=== PATIENT | male | born 1990 | race Caucasian/White ===

== ENCOUNTER → 2021-05-05 | Outpatient (CLI) | payer MEDICAID, SELFPAY | END | disposition home or self-care (01) | LOC: LABSPEC 15:15 | PROVIDERS: Visit Provider Physician Assistant | DX: U07.1 COVID-19 (principal) | CPT/HCPCS: 87635; U0005; U0003 ==

== ENCOUNTER 2021-06-28 05:22 | Observation (INO) | payer MEDICAID, SELFPAY ==
[2021-06-28] VITALS (14 sets, daily range): BP systolic 134–203; BP diastolic 65–144; PULSE 80–105; RESP 16–24; TEMP 36.3–36.8; O2SAT 95–98; BMI 47.7; BMI 46.6
--- NOTE | 2021-06-28 05:37 | RAD_ITS ---
STUDY: X-RAY CHEST REASON FOR EXAM: Male, 31 years old. Chest pain TECHNIQUE: Single AP portable view of the chest. COMPARISON: None. FINDINGS: Interstitial markings are minimally prominent. There is no demonstrated pleural abnormality. There is borderline cardiac enlargement. Normal mediastinum and danilo. Normal visualized pulmonary arteries. There is tortuosity of the aortic arch and descending thoracic aorta. Normal visualized thoracic spine. Normal visualized ribs, clavicles, and shoulders. There is no demonstrated abnormality of the visualized soft tissue structures of the upper abdomen. RAD/Chest 1 View (Portable) IMPRESSION: Borderline cardiac enlargement. Nonspecific minimal interstitial prominence. No visualized focal consolidation. Electronically Signed: Eleonora Ge MD at 6:30 EST Tel , Service support ,
--- NOTE | 2021-06-28 05:37 | EKG12_ITS ---
Test Reason : DYSRHYTHMIA Blood Pressure : / mmHG Vent. Rate : 092 BPM Atrial Rate : 092 BPM P-R Int : 192 ms QRS Dur : 100 ms QT Int : 372 ms P-R-T Axes : 037 005 058 degrees QTc Int : 460 ms Normal sinus rhythm Normal ECG Confirmed by MAIRA IBRAHIM, DEBBY ([id number]), newspaper editor EDY REMY ([id number]) on 06/29/2021 8:57:37 AM Referred By: PL Confirmed By:DEBBY RAO MD
--- NOTE | 2021-06-28 05:38 | CT_ITS ---
STUDY: CT BRAIN WITHOUT CONTRAST REASON FOR EXAM: Male, 31 years old. headache RADIATION DOSAGE (If Supplied By Facility): CTDIvol = ( 44.99 ) mGy, DLP = ( 863.60 ) mGycm TECHNIQUE: Transaxial CT imaging of the brain was performed without administration of intravenous contrast material. Individualized dose optimization techniques were used for this CT. COMPARISON: No relevant priors. FINDINGS: Normal soft tissue structures. Normal calvarium. Normal size ventricles and extra-axial spaces for the patient''s age. Normal white matter tracts of the cerebral hemispheres. Normal basal ganglia and thalami. Normal brainstem. Normal cerebellum. There is no intracranial hemorrhage. There are no findings of an acute ischemic infarction. Near complete opacification of the left maxillary sinus. CT/Brain/Head without Contrast IMPRESSION: No acute intracranial pathology. Near complete opacification of the left maxillary sinus. Electronically Signed: Aly Huffman DO at 6:36 EST Tel , Service support ,
--- NOTE | 2021-06-28 05:39 | EX.ED.DYSGE1 ---
HPI History of Present Illness Chief Complaint: Headache Informant: patient Narrative Narrative: Patient comes in with complaints primarily of an episode of chest pain. He states that he had COVID diagnosed on the sixth and he started with symptoms on the . He went back to work just 2 days ago on Saturday. He was having intermittent chest pain on Saturday. It was discomfort in the upper chest. It did not radiate. It was associated with some nausea. However, patient states he commonly gets nauseated if he has pain. He is not sure if it was associated with dyspnea or not. The episode yesterday morning was associated with lightheadedness. He does not think he was diaphoretic. It would last for 3 to 5 minutes. It was not specifically exertional. Yesterday morning about 24 hours ago he had a bad episode of chest pain this did not calls him to be syncopal. However he states it hurts so much he kind of sat down on the ground. He started to cry and feel shaky. He was very anxious and nervous. It is not going on right now. He is not short of breath. He is not having fevers or chills. He does state that he has had a bad headache since the episode yesterday but did not hit his head. However, he also states he has been having headaches every single day for many years. He has never had them evaluated. No neurologic symptoms. He also states that he gets red blood in his stool every few weeks or a month and this has been going on for likely 15 years. No abdominal pain. No black stools. Is not different than normal. [facility] Medical History COVID-19 Encounter for screening for COVID-19 Morbid obesity Psoriasis Uncontrolled hypertension Allergy/AdvReac Type Severity Reaction Status Date / Time No Known Allergies Allergy Verified 06/28/21 05:27 Social History Smoking Status: Current every day smoker tobacco type: cigarettes ROS ROS ED Constitutional Constitutional ED: Denies chills or fever(s) Eyes Eyes: Denies blurry vision ENT ENT ED: Denies rhinorrhea or sore throat Cardiovascular Cardiovascular: Reports chest pain and palpitations Respiratory/Chest Respiratory/Chest: Reports cough; Denies dyspnea Gastrointestinal Gastrointestinal: Reports other Details: See history of present illness. ; Denies abdominal pain, diarrhea, melena, nausea or vomiting Genitourinary Genitourinary ED: Denies hematuria or urinary frequency Musculoskeletal Musculoskeletal: Denies arthralgias or myalgias Integumentary Denies rash Neurologic Neurologic: Reports headache(s); Denies paresthesias or weakness Psychiatric Psychiatric: Reports anxiety; Denies depression Endocrine Endocrinology: Denies polydipsia or polyuria Allergic/Immunologic Allergic/Immunologic ED: Denies mouth swelling or urticaria EXAM Physical Exam Const Vital Signs: 06/28/21 05:22 06/28/21 05:28 06/28/21 05:31 Temperature 98.2 F Temperature Source Temporal Pulse Rate 105 H 103 H Respiratory Rate 20 H Respiratory Effort Normal Blood Pressure 203/127 H 202/144 H Blood Pressure Mean 152 163 Pulse Ox 98 Oxygen Delivery Method Room Air 06/28/21 05:37 06/28/21 06:18 06/28/21 06:20 Temperature Temperature Source Pulse Rate 87 Respiratory Rate 20 H Respiratory Effort Blood Pressure 177/109 H 162/101 H Blood Pressure Mean 131 121 Pulse Ox 96 97 Oxygen Delivery Method Room Air Room Air 06/28/21 06:47 Temperature Temperature Source Pulse Rate Respiratory Rate 24 H Respiratory Effort Blood Pressure 138/86 H Blood Pressure Mean 103 Pulse Ox 95 Oxygen Delivery Method Room Air Positive well nourished, well developed and obese General Appearance ED: well developed and NAD; Negative for cyanotic or diaphoretic Nutritional Appearance: obese HEENT Denies moist mucous membranes Eyes General Eye ED: Negative for pale conjunctiva or scleral icterus Neck no JVD Chest Wall inspection of chest normal Resp normal respiratory effort and clear to auscultation bilaterally Effort and Inspection: Negative for pain with movement Auscultation: Negative for rales, rhonchi or wheezes Cardio regular rhythm and no murmurs Rate: tachycardic GI normal to inspection, nondistended, normoactive bowel sounds and non-tender Palpation: soft Back/Spine no CVA tenderness Extremity normal to inspection General Extremety ED: Negative for tenderness Neuro oriented x3 Sensorium / Orientation: alert Psych Psych Narrative: Patient is a bit anxious. He admits that he is very nervous about being here. He intermittently cries during exam. Mood & Affect: anxious Skin no rashes or lesions noted MDM MDM MDM Narrative Medical decision making narrative: Patient CBC showed minimal elevation of white count which is nonspecific. D-dimer is negative. Electrolytes looked normal. His troponin was elevated at 107. EKG did not show any acute process and I do not have an old to compare to. His chest x-ray shows some borderline cardiac enlargement. I was concerned with couple episodes of chest pain in a young male with elevated troponin. It is certainly true that his troponin elevation may be due to significant hypertension as he showed up very hypertensive. He has gotten 1 dose of labetalol and is actually down to about 160/100 now. I discussed the case with the hospitalist. They requested a repeat troponin at 2 hours. This is pending. I did discuss the case with speech pathologist assistant, Dr. Velazquez. He agreed that it is very possible that the troponin elevation could be due to his high blood pressure. However, considering his young age and unknown history with chest pain and elevated troponin he should come in the hospital. Serial troponins and serial EKGs should be done along with watching his blood pressure to make sure we keep it under control. He thought he would likely need an echo to look at his wall motion and thickness. He may even need a stress test or further evaluation. I will call and discuss with the hospitalist. Lab Data Attestation: I reviewed the patient's lab results. Labs: Laboratory Results - last 24 hr 06/28/21 06/28/21 06/28/21 05:30 05:30 05:30 WBC 12.4 H RBC 5.52 Hgb 15.9 Hct 45.7 MCV 82.8 MCH 28.8 MCHC 34.8 RDW Std Deviation 40.3 RDW Coeff of Angel 13.4 Plt Count 360 MPV 11.5 Immature Gran % (Auto) 0.400 Neut % (Auto) 61.1 Lymph % (Auto) 29.7 [place] % (Auto) 6.7 Eos % (Auto) 1.5 Baso % (Auto) 0.6 Absolute Neuts (auto) 7.6 Absolute Lymphs (auto) 3.67 Nucleated RBC % 0 D-Dimer Quant (PE/DVT) <= 0.27 Sodium 138 Potassium 3.5 Chloride 103 Carbon Dioxide 29.0 Anion Gap 6 BUN 12 Creatinine 0.91 Estim Creat Clear Calc 124.12 Est GFR (MDRD) Af Amer 125 Est GFR (MDRD) Non-Af 103 BUN/Creatinine Ratio 13.2 Glucose 103 Calcium 8.9 Troponin I High Sens 107 H Radiography Diagnostic Testing: Clinical Impression(s) from Imaging Studies Chest X-Ray 06/28/21 05:37 IMPRESSION: Borderline cardiac enlargement. Nonspecific minimal interstitial prominence. No visualized focal consolidation. Electronically Signed: Eleonora Ge MD at 6:30 EST Tel , Service support , Brain CT 06/28/21 05:38 IMPRESSION: No acute intracranial pathology. Near complete opacification of the left maxillary sinus. Electronically Signed: Aly Huffman DO at 6:36 EST Tel , Service support , EKG Initial EKG: Comments: Done for chest pain read by me shows normal sinus rhythm. No ventricular ectopy. No acute ST elevation or depression. MA interval, QRS duration and QTc normal. There is no old for comparison. Discharge Plan Dx/Rx/DC Orders Clinical Impression: Hypertensive emergency, Chest pain, Elevated troponin Disposition Disposition: Acute Care [facility]
[2021-06-28 05:44] LABS: Absolute Lymphocyte Count 3.67 X10^3/uL (0.83-4.51); Absolute Neutrophil Count 7.6 X10^3/uL (2.0-7.7); Basophil# 0.07 X10^3/uL; Basophil% 0.6 % (0-1); Eosinophil# 0.18 X10^3/uL; Eosinophils% 1.5 % (0-5); Hematocrit 45.7 % (40-54); Hemoglobin 15.9 g/dL (13.0-16.5); Lymphocyte # 3.67 X10^3/ul (0.83-4.51); Lymphocyte % 29.7 % (19-41); Mean Corp Hgb Conc 34.8 g/dL (32-36); Mean Corpuscular Hgb 28.8 pg (27.0-32.0); Mean Corpuscular Volume 82.8 fL (80-94); Mean Platelet Vol. 11.5 fl (6.2-12.0); Monocyte# 0.83 X10^3/uL; Monocyte% 6.7 % (0-10); NRBC Flagged by Analyzer 0 % (0-5); Neutrophil # 7.56 X10^3/uL (2.7-7.7); Neutrophil % 61.1 % (47-70); Platelet Count 360 K/mm3 (150-450); RBC Distribution Width CV 13.4 % (11.6-14.6); RBC Distribution Width SD 40.3 fl (35.1-43.9); Red Blood Count 5.52 M/mm3 (4.6-6.2); White Blood Count 12.4 K/mm3 (4.4-11.0)
[2021-06-28 05:58] LABS: D-Dimer Quantitative (DVT/PE) <= 0.27 FEU/ug/m (0.27-0.49)
[2021-06-28 06:02] LABS: Anion Gap 6 (5-15); BUN 12 mg/dL (7-18); BUN/Creat Ratio 13.2 RATIO (10-20); Calcium,Total 8.9 mg/dL (8.5-10.1); Chloride 103 mmol/L (98-107); Creatinine, Serum 0.91 mg/dL (0.70-1.30); EST Glomerular Filtration Rate 103 mL/min (>60); Est Glom Filt Rate - Afr Amer 125 mL/min (>60); Estimated Creatinine Clearance 124.12 ml/min; Glucose 103 mg/dL (74-106); Potassium 3.5 mmol/L (3.5-5.1); Sodium Level 138 mmol/L (136-145); Troponin-I HS 107 pg/mL (3.0-78.0)
[2021-06-28] MEDS: Labetalol (Prefilled) 20 MG/4 ML IV (06:16)
--- NOTE | 2021-06-28 07:25 | NURSING ---
DR UNA ARIAS [facility]
--- NOTE | 2021-06-28 07:36 | NURSING ---
PCU UNA CP, ELEVATED TROP, HYPERTENSIVE EMERGENCY
--- NOTE | 2021-06-28 07:36 | NURSING ---
DR HEART IN ER
--- NOTE | 2021-06-28 07:46 | NURSING ---
NO OLD EKGS
--- NOTE | 2021-06-28 08:07 | PCM.HP.STD ---
HPI - General General Date of Admission: 06/28/21 Date of Service: 06/28/21 Chief Complaint: Chest pain HPI Narrative YOSEF GRAY, is a 31 M who presents presents with midsternal chest pain. Took him down to the floor. It was midsternal. Patient was diaphoretic and short of breath and presented to the emergency room. In the emergency room, his blood pressure was noted to be 203/127. He received IV labetalol and his blood pressure steadily improved and currently down to 134/65. Patient was seen in the urgent care on the sixth and his blood pressure was 206/120 at that time. Patient does not follow-up with physicians on a routine basis. Patient had COVID-19 at that time he was unvaccinated. He did not require hospitalization and has completed his quarantine. Patient was back to work this past Saturday. Patient was noted to have a troponin of over 100. Dr. Martinez, of cardiology, was contacted and advised further admission and evaluation. Patient also notes that he has had hematochezia. It is intermittent and can be frequent to be spaced out over a month but he did have hematochezia last night. Patient also did have some epistaxis x1 but that has resolved. [facility] Medical History COVID-19 Encounter for screening for COVID-19 Morbid obesity Psoriasis Uncontrolled hypertension Allergy/AdvReac Type Severity Reaction Status Date / Time No Known Allergies Allergy Verified 06/28/21 05:27 Family History (Updated 06/28/21 @ 08:[address] Herman Coles DO) Mother CVA (cerebral vascular accident) Obstructive sleep apnea Diabetes no surgical history Social History (Updated 06/28/21 @ 08:[address] Herman Coles DO) Smoking Status: Light Smoker (<10/day) alcohol intake: never substance use type: marijuana ROS ROS Narrative Patient does have psoriatic plaques involving his scalp, back and arms. Denies easy bruising. Denies hematuria. All review of systems were negative except as mentioned above in the history of present illness and the other review of systems. Vital Signs Vital Signs Vital Signs: 06/28/21 05:22 06/28/21 05:28 06/28/21 05:31 Temperature 36.8 C Temperature Source Temporal Pulse Rate 105 H 103 H Respiratory Rate 20 H Respiratory Effort Normal Blood Pressure 203/127 H 202/144 H Blood Pressure Mean 152 163 Pulse Ox 98 Oxygen Delivery Method Room Air 06/28/21 05:37 06/28/21 06:18 06/28/21 06:20 Temperature Temperature Source Pulse Rate 87 Respiratory Rate 20 H Respiratory Effort Blood Pressure 177/109 H 162/101 H Blood Pressure Mean 131 121 Pulse Ox 96 97 Oxygen Delivery Method Room Air Room Air 06/28/21 06:47 06/28/21 07:35 Temperature 36.8 C Temperature Source Temporal Pulse Rate 83 Respiratory Rate 24 H 16 Respiratory Effort Blood Pressure 138/86 H 134/65 H Blood Pressure Mean 103 88 Pulse Ox 95 96 Oxygen Delivery Method Room Air Room Air Weight Weight: 155.3 kg Body Mass Index (BMI) 47.7 Physical Exam Const alert General Appearance: cooperative HEENT normocephalic Eyes Eyes Narrative: Glasses. No icterus Neck no lymphadenopathy Resp normal respiratory effort, no retractions, no use of accessory muscles and clear to auscultation bilaterally Cardio regular rate, regular rhythm, S1 normal heart sound and S2 normal heart sound GI normal to inspection, nondistended, normoactive bowel sounds, soft to palpation and non-tender Extremity normal to inspection and full ROM Skin Skin Narrative: Psoriatic plaques involving around his elbows, umbilicus, scattered patches on his back. Does have chronic changes to his fingernails as well. Neuro Sensorium / Orientation: awake, alert and oriented to person Psych affect normal Results Lab / Micro Data Attestation: I reviewed the patient's lab results. Result Diagrams: 06/28/21 05:30 06/28/21 05:30 Labs: Laboratory Results - last 24 hr 06/28/21 05:30: WBC 12.4 H, RBC 5.52, Hgb 15.9, Hct 45.7, MCV 82.8, MCH 28.8, MCHC 34.8, RDW Std Deviation 40.3, RDW Coeff of Angel 13.4, Plt Count 360, MPV 11.5, Immature Gran % (Auto) 0.400, Neut % (Auto) 61.1, Lymph % (Auto) 29.7, [place] % (Auto) 6.7, Eos % (Auto) 1.5, Baso % (Auto) 0.6, Absolute Neuts (auto) 7.6, Absolute Lymphs (auto) 3.67, Nucleated RBC % 0 06/28/21 05:30: D-Dimer Quant (PE/DVT) <= 0.27 06/28/21 05:30: Sodium 138, Potassium 3.5, Chloride 103, Carbon Dioxide 29.0, Anion Gap 6, BUN 12, Creatinine 0.91, Estim Creat Clear Calc 124.12, Est GFR (MDRD) Af Amer 125, Est GFR (MDRD) Non-Af 103, BUN/Creatinine Ratio 13.2, Glucose 103, Calcium 8.9, Troponin I High Sens 107 H Micro: Microbiology 06/28/21 07:05 Nasal Secretion SARS-CoV-2 Antigen (Rapid) - Final EKG Initial EKG: Attestation: I personally reviewed and interpreted this EKG as follows: Prior EKG tracings: available for review EKG Rhythm Intrepretation: Sinus Rhythm Radiology Impression Chest X-Ray 06/28/21 05:37 IMPRESSION: Borderline cardiac enlargement. Nonspecific minimal interstitial prominence. No visualized focal consolidation. Electronically Signed: Eleonora Ge MD at 6:30 EST Tel , Service support , Brain CT 06/28/21 05:38 IMPRESSION: No acute intracranial pathology. Near complete opacification of the left maxillary sinus. Electronically Signed: Aly Huffman DO at 6:36 EST Tel , Service support , Assessment & Plan Assessment/Plan (1) Hypertensive emergency: (2) Chest pain: QUALIFIERS: Chest pain type: unspecified Qualified Code(s): R07.9 - Chest pain, unspecified (3) Elevated troponin: (4) Bloody stools: PLAN: 1. Hypertensive emergency Associated with chest pain and elevated troponins Blood pressure much improved after labetalol Start lisinopril Suspect patient has had chronically elevated blood pressure for a long period of time. Patient had an urgent care visits on the sixth of this month and his blood pressure was in the 200s at that time. 2. Elevated troponins May be due to demand from his hypertension. Check an echocardiogram Consult cardiology 3. Hematochezia And ongoing issue according to patient since he was 15 years old He has never had this evaluated before Possibilities could include Crohn's disease versus ulcerative colitis versus diverticulosis or hemorrhoids Does not seem to be affected by what he eats Start the patient on PPI Clear liquid diet Gastroenterology consult 4. Morbid obesity Complicates care and overall recovery. Advised patient to be evaluated for sleep apnea as outpatient 5. Psoriasis Patient has 3 lesions on his scalp as well as reports of his body involving fingernails as well Follow-up with dermatology as outpatient 6. VTE prophylaxis SCDs. Holding off on chemical prophylaxis given the hematochezia Charges/Coding Visit Charges Inpatient E&M: 34322 Init Hosp L3
--- NOTE | 2021-06-28 08:09 | PCS.PANDOC ---
PANDEMIC DOCUMENTATION INITIATED: Date: 01/23/2021 Time: 190
--- NOTE | 2021-06-28 08:23 | EKG12_ITS ---
Test Reason : CP ADMIT Blood Pressure : / mmHG Vent. Rate : 081 BPM Atrial Rate : 081 BPM P-R Int : 194 ms QRS Dur : 108 ms QT Int : 402 ms P-R-T Axes : 034 017 066 degrees QTc Int : 466 ms Normal sinus rhythm Poor R wave progression Confirmed by FRANK IBRAHIM, FLOYD ([id number]), market editor CATALINO IRIZARRY ([id number]) on 06/29/2021 9:34:47 AM Referred By: UNA Confirmed By:FLOYD MARIE MD
--- NOTE | 2021-06-28 08:23 | ECHOCS_ITS ---
Reason For Study: Elevated Troponins Procedure This was a 2D Doppler, Color Flow transthoracic echocardiogram. Technically difficult due to patients body habitus. Contrast injection performed. The study was technically difficult. Contrast injection was performed. Exam performed portable in patient room. Left Ventricle Normal LV size. Left ventricular systolic function is normal. The estimated ejection fraction is 65 %. Diastolic function is indeterminate. No regional wall motion abnormalities noted. Right Ventricle Normal RV size. Normal systolic function. Atria Normal left atrium. Normal right atrium. No doppler evidence for ASD. Mitral Valve There is no mitral annular calcification. Normal mitral valve. Tricuspid Valve Normal tricuspid valve. Aortic Valve Trisinus/trileaflet aortic valve. Normal aortic valve. Pulmonic Valve The pulmonic valve is not well visualized. Great Vessels Dilated arch. Pericardium/Pleural No pericardial effusion. Medication Diluted definity 4ml given slow IV push to enhance endocardial definition. MMode/2D Measurements & Calculations LVIDd: 4.7 cm IVSd: 1.8 cm LA dimension: 4.1 cm LVIDs: 3.6 cm LVPWd: 1.8 cm FS: 23.6 % LAV(MOD-bp): 29.1 ml LA A4 area: 12.3 cm2 LAV(MOD-bp) Indexed: 11.1 ml/m2 LAV(MOD-sp2): 30.2 ml LAV(MOD-sp4): 26.5 ml Time Measurements MV dec time: 0.21 sec Doppler Measurements & Calculations MV E max filiberto: 93.2 cm/sec Lat Peak E' Filiberto: 5.6 cm/sec Med Peak E' Filiberto: 7.6 cm/sec MV A max filiberto: 79.7 cm/sec E/E' lat: 16.8 E/E' med: 12.2 MV E/A: 1.2 MV V2 max: 89.5 cm/sec MV P1/2t max filiberto: 89.5 cm/sec Ao V2 max: 126.8 cm/sec MV max P.2 mmHg MV P1/2t: 86.5 msec Ao max P.4 mmHg MV V2 mean: 58.3 cm/sec MV dec slope: 303.2 cm/sec2 MV mean P.5 mmHg MV V2 VTI: 22.3 cm MVA(P1/2t): 2.5 cm2 LV V1 max: 105.1 cm/sec PA V2 max: 114.6 cm/sec LV V1 max P.4 mmHg ECHO/Echo Complete W/ Contrast Interpretation Summary The study was technically difficult. Contrast injection was performed. Left ventricular systolic function is normal. The estimated ejection fraction is 65 %. Dilated arch. Diastolic function is indeterminate. Ordering Physician: Herman Coles Referring Physician: no PCP noted Performed By: Warren Marrufo RCS
[2021-06-28 08:27] LABS: Troponin-I HS 97 pg/mL (3.0-78.0)
--- NOTE | 2021-06-28 08:39 | RDU_ITS ---
Reason For Study: HTN Right Renal Artery Left Renal Artery Right renal artery ostium Left renal artery ostium 167.0/55.2 137.8/42.0 RSV/EDV. PSV/EDV. Right renal artery proximal Left renal artery proximal PSV/EDV 168.9/60.1 PSV/EDV. 140.5/65.3 . Right renal artery mid 155.9/57.5 Left renal artery mid 132.7/47.2 PSV/EDV. PSV/EDV . Right renal artery distal Left renal artery distal 153.4/57.5 132.6/52.3 PSV/EDV. PSV/EDV. Right RAR 2.2. Left RAR 2.2. Right Renal Parenchyma Left Renal Parenchyma Upper Pole Medula 28.5/12.1 Left upper pole medulla 45.8/17.5 PSV/EDV. PSV/EDV . Right upper pole medulla EDR .42 . Left upper pole medulla EDR .38 . Right upper pole medulla R.I. .58 . Left upper pole medulla R.I. .62 . Upper Omer Cortx 21.2/10.2 PSV/EDV. UP Cortex 36.7/16.6 PSV/EDV. Right upper pole cortex EDR .48 . Left upper pole cortex EDR .45 . Right upper pole cortex R.I. .52 . Left upper pole cortex R.I. .55 . Right lower Pole medulla 38.5/17.5 Left lower Pole medulla 37.6/14.8 PSV/EDV . PSV/EDV . Right lower pole medulla EDR .45 . Left lower pole medulla EDR .39 . Right lower pole medulla R.I. .55 . Left lower pole medulla R.I. .61 . Lower Pole Cortex 30.3/13.0 Lower Pole Cortx 25.8/10.2 PSV/EDV. PSV/EDV. Left lower pole cortex EDR .4 . Right lower pole cortex EDR .43 . Left lower pole cortex R.I. .6 . Right lower pole cortex R.I. .57 . Left Renal Hilar Right Renal Hilar LT Hilar avg 47.7/20.3 PSV/EDV . Right Hilar avg 70.2/28.8 PSV/EDV. Left hilar acceleration time 40.0 Right hilar acceleration time 60.0 m/sec. m/sec. Left Renal Dimensions Right Renal Dimensions Left kidney size 13.44 cm . Right kidney size 13.22 cm . Left cortical dimension 2.16 cm . Right cortical dimension 2.11 cm . Aorta Proximal abdominal aorta 1.62 x 1.53 cm . Proximal abdominal aorta peak systolic velocity is 75.3 cm/sec . Distal abdominal aorta 1.45 x 1.583 cm . Distal abdominal aorta peak systolic velocity is 73.4 cm/sec . Normal renal veins bilat. VL/Renal Artery Duplex Ultrasound Interpretation Summary Maximal dimension of the proximal abdominal aorta 1.62 x 1.53 cm in diameter, n ormal Normal flow velocity abdominal aorta Less than 60% stenosis right renal artery Maintained right renal length of 13.22 cm Less than 60% stenosis left renal artery Maintained left renal length of 13.44 cm Ordering Physician: Chapito Martinez Performed By: Jaime Bridges RVT
[2021-06-28] MEDS: Lisinopril 20 MG Tablet PO (09:31)
[2021-06-28] MEDS: Acetaminophen 325 MG Tablet 650 MG PO (09:31)
[2021-06-28] MEDS: 0.9% Saline Lock 10 ML Syringe IV (10:53)
--- NOTE | 2021-06-28 11:29 | CASEMGMT ---
ROVERTO GRAHAM assessment: Face to Face with patient for initial transition planning/care coordination assessment. ROVERTO GRAHAM introduced self and role at [facility]. pt voices understanding and consents to assessment. Pt is sitting up in bed in no distress on room air. Pt is A/Ox4 and answers all questions appropriately. Care providers, pharmacy, and demographics verified. Presentation: Pt states had CP yesterday am with syncopal episode Admitting dx: HTN urgency, Chest pain, elev trop PCP: [facility] first appt 07/11/21 Specialists: None Preferred [facility]acy: [facility] Insurance: [facility] community plan Prescription Benefit: [facility] Community plan Living Will/HPOA: Pt states does not have LW/HPOA and declines AD info. LNOK: Tiffany Bullock, friend; Carlos Cobian, aunt Living Arrangements: Pt lives with and kids in 2 story home and states no concerns at home. Pt does not want to list as contact at this time as he states she does not have working phone. Pt is independent with ADL's. Transportation: Pt drives self and states no transportation concerns. DME/HHC: Pt states no current DME or need for any DME. Pt states no hx of HHC or SNF. Pt states no concerns with going home at time of discharge. Pt states is mostly unemployed at this time as he was working at [employer] but he thinks it's too much for him to do and let them know. Pt smokes pack cigarettes daily but states is attempting to quit at this time. Pt states no further concerns/needs. CM to follow any further discharge planning/needs. Advised pt to ask for CM if any further questions/concerns/needs arise, voices understanding. Pt Goal: Home Plan: [place] ROVERTO GRAHAM
[2021-06-28 11:58] LABS: Troponin-I HS 93 pg/mL (3.0-78.0)
--- NOTE | 2021-06-28 12:37 | CT_ITS ---
STUDY: CTA CHEST REASON FOR EXAM: Male, 31 years old. chest pain; HTN; dilated aortic arch RADIATION DOSAGE (If Supplied By Facility): CTDIvol = ( 13.74 ) mGy, DLP = ( 438.56 ) mGycm TECHNIQUE: The examination was performed with the intravenous administration of IV 100mL Isovue-370. Post-processing of the angiographic images was performed, with multiplanar reformation and 3D reconstruction. Individualized dose optimization techniques were used for this CT. COMPARISON: None. FINDINGS: Mild bilateral gynecomastia. Normal enhancement of the main pulmonary artery and right and left pulmonary arteries. Normal enhancement of the bilateral peripheral pulmonary arteries. There is no demonstrated pulmonary embolism. Normal thoracic aorta and visualized great vessels. There is no demonstrated aortic dissection. Normal heart and pericardium. Normal mediastinum. Normal hilar regions. Normal visualized trachea and bronchi. The lungs are under expanded. No airspace consolidation. Calcified granuloma in the left upper lobe. Normal pleura. Normal chest wall structures. Normal osseous structures. There is diffuse fatty infiltration of the liver. CT/CTA Chest W/WO Contrast IMPRESSION: 1. No central or segmental pulmonary embolism. No thoracic aortic aneurysm or dissection. 2. Symmetric bilateral gynecomastia. Electronically Signed: Doroteo Chavez MD ([place]) at 14:21 EST , Service support ,
--- NOTE | 2021-06-28 13:03 | CON.PCM.CA_ITS ---
Assessment & Plan Assessment/Plan (1) Abnormal cardiac enzyme level: PLAN: The patient does have abnormal cardiac enzyme levels. His enzyme levels may be secondary to his urgent/emergent hypertensive event. He has undergone evaluation with ECG with no acute changes. He is undergone evaluation with transthoracic echocardiogram which appears to suggest that his left ventricular wall motion and systolic function are preserved. Depending upon his clinical status he may need further noninvasive and/or invasive evaluation of his cardiovascular status as deemed appropriate. In the interim he should continue medical therapy with attempts at bringing his blood pressure under better control. (2) Hypertensive emergency: PLAN: The patient was unaware of any hypertensive related issues until recently. He may have a history of hypertension which has not been controlled. His hypertension could lead to his symptoms as well as his cardiac enzyme change. At the moment appears he is being started on medical therapy with an ADALGISA inhibitor. His blood pressure will need to be followed in response to this medication. If his blood pressure does not improve his dose may need to be adjusted and/or other medications used to bring his blood pressure under better control. In the interim he has been asked to have a renal artery duplex study performed to evaluate for any obvious evidence of renal artery stenosis that would be contributing to his findings. (3) Chest pain: QUALIFIERS: Chest pain type: unspecified Qualified Code(s): R07.9 - Chest pain, unspecified PLAN: The patient's chest discomfort appears to be somewhat atypical. He will continue his cardiovascular evaluation as noted above. (4) Bloody stools: PLAN: The patient has a history of hematochezia which has been unexplained. It appears that gastroenterology has been consulted to evaluate the patient. (5) Morbid obesity: PLAN: Unfortunately the patient is morbidly obese. This does have to be taken into consideration with respect to his ongoing evaluation and care. (6) COVID-19: PLAN: The patient was diagnosed with COVID-19 earlier this month. He had a repeat COVID-19 test this day which was negative. He is not currently in COVID-19 isolation. Addt'l Comments The patient's case was previously discussed with Dr. Jenkins from the [facility] emergency department staff. This note was generated using a voice recognition system and there may be incorrect words, spelling or punctuation that were not noted when reviewing the office note prior to saving. HPI Consult Data Date of Consult: 06/28/21 HPI Narrative HPI Narrative: YOSEF GRAY, is a 31 year old white male who presents for cardiovascular consultation based upon concerns of a combination of chest discomfort, hypertension, and abnormal cardiac enzymes/high-sensitivity troponin I level. The patient denies any obvious cardiovascular history other than a rec ent diagnosis of hypertension. He states that earlier this month he was diagnosed with COVID-19 at the outpatient care center. At that time he states that his blood pressure was markedly elevated. He believes he was put on a medication to assist with his blood pressure that he only took for 5 days. According to the urgent care note it appeared on 06-15-2021 his blood pressure was 206/120 mmHg and subsequently repeated at 192/112 mmHg. He was recommended at that time, as being COVID-19 positive, for isolation, corticosteroid therapy, and monoclonal antibody therapy as well as a recommendation to follow-up with his PCP and/or the emergency department for concerns of his uncontrolled hyperte nsion. It does not appear, based upon the medical record, that he was given any prescription medication for his hypertension. He notes that between yesterday and today he was having chest discomfort. He states this was centrally located. He felt as if this was a sharp knifelike sensation. He may have been somewhat short of breath with this. He does not recall whether he had diaphoresis. He denies any nausea or emesis. He did not lose consciousness. He states the discomfort was so bad that he fell to the floor . He also noted an ongoing headache. He presented to the [facility] emergency department for evaluation. Upon evaluation he was noted to have a markedly elevated blood pressure of approximately 203/127 mmHg. He was treated with IV labetalol with improvement of his blood pressure and subsequent resolution of his chest discomfort. He underwent additional evaluation which included a high- sensitivity troponin I level which was abnormal at 100. He had an ECG that demonstrated sinus rhythm with poor R wave progression. It has subsequently been repeated with no acute ECG changes.He had a portable chest x-ray performed which did not report any definitive acute cardiopulmonary issues. He states he does carry a diagnosis of psoriasis. He also notes he has had episodes of hematochezia for a long time. He notes in the past he was told he did and then did not have hemorrhoids to explain this issue. Since his admission he has undergone additional evaluation. This included follow-up cardiac enzymes which have decreased. He also had a transthoracic echocardiogram. The results are as noted. It did raise concern of dilatation of his aortic arch. Thus a chest CTA scan has been requested to further evaluate his thoracic aorta. [facility] Medical History (Updated 06/28/21 @ 13:[address] Chapito Martinez MD) Abnormal cardiac enzyme level COVID-19 Encounter for screening for COVID-19 Morbid obesity Psoriasis Uncontrolled hypertension Home Medications NK 06/28/21 [History Last Taken Unknown] Allergy/AdvReac Type Severity Reaction Status Date / Time No Known Allergies Allergy Verified 06/28/21 05:27 Family History (Updated 06/28/21 @ 08:[address] Herman Coles DO) Mother CVA (cerebral vascular accident) Obstructive sleep apnea Diabetes Surgical History no surgical history Social History (Updated 06/28/21 @ 08:[address] Herman Coles DO) Smoking Status: Light Smoker (<10/day) alcohol intake: never substance use type: marijuana ROS Constitutional Constitutional: Reports as per HPI Eyes Eyes: Reports as per HPI ENT HEENT: Reports as per HPI Cardiovascular Cardiovascular: Reports chest pain at rest Respiratory/Chest Respiratory/Chest: Reports as per HPI Gastrointestinal Gastrointestinal: Reports hematochezia Genitourinary Genitourinary: Reports as per HPI Musculoskeletal Musculoskeletal: Reports as per HPI Integumentary Integumentary: Reports as per HPI Neurologic Neurologic: Reports headache(s) Physical Exam Narrative This is a 31-year-old obese white male who appears to be resting comfortably at the moment in no acute distress. Const alert, oriented x3 and no apparent distress Orientation / Consciousness: awake HEENT normocephalic and hearing grossly normal bilaterally HEENT Narrative: Forehead: Findings compatible with psoriasis Eyes PERRL, EOMs intact bilaterally and conjunctivae normal Neck full ROM, supple and no JVD Resp clear to auscultation bilaterally Cardio regular rate, regular rhythm, S1 normal heart sound and S2 normal heart sound Cardio Narrative: Distant heart tones GI normal to inspection, nondistended, normoactive bowel sounds Extremity no pedal edema Skin Skin Narrative: Findings compatible with psoriasis Neuro oriented x3, moves all extremities, no focal motor deficits and no sensory deficits noted Psych mental status grossly normal Risk Stratification Risk Stratification Applicable: Yes Age >/= 65: No >/= 3 CAD Risk Factors (HTN, HLD, DM, family hx of CAD, or current smoker): No Aspirin Use in the Past 7 Days: No Severe Angina (>/= episodes in 24 hours): No EKG ST Changes >/= 0.5mm: No Positive Cardiac Marker: Yes [place] Risk Stratification Score: 1 [place] % Risk: 5% Risk Procedure Criteria Type of Procedure Procedure Type: Elective Elective Risks - COVID COVID Risk Discussion: The surgeon/proceduralist and patient have discussed in detail the risk of exposure to and/or potential harm posed by the COVID-19 virus with having a surgery/procedure at this time versus the risk of delaying the surgery/procedure. It is not possible to know either the risk of delaying the surgery or procedure or chance of getting an infection with perfect accuracy, but a joint decision was made between the patient and the surgeon/proceduralist to proceed at this time with the scheduled surgery/procedure as indicated on the consent form. Objective Data Vital Signs: Vital Signs Temp Pulse Resp BP Pulse Ox 97.5 F L 80 16 160/107 H 95 06/28/21 08:10 06/28/21 08:10 06/28/21 08:10 06/28/21 08:10 06/28/21 08:10 Oxygen Delivery Method Room Air Weight: 334 lb 7.06 oz Body Mass Index (BMI) 46.6 Intake & Output: Intake and Output for Last 24 Hours 06/26/21 06/27/21 06/28/21 23:59 23:59 23:59 Intake Total 230 / 230 Balance 230 / 230 Lab / Micro Data Result Diagrams: 06/28/21 05:30 06/28/21 05:30 Labs: Laboratory Results - last 24 hr 06/28/21 05:30: WBC 12.4 H, RBC 5.52, Hgb 15.9, Hct 45.7, MCV 82.8, MCH 28.8, MCHC 34.8, RDW Std Deviation 40.3, RDW Coeff of Angel 13.4, Plt Count 360, MPV 11.5, Immature Gran % (Auto) 0.400, Neut % (Auto) 61.1, Lymph % (Auto) 29.7, [place] % (Auto) 6.7, Eos % (Auto) 1.5, Baso % (Auto) 0.6, Absolute Neuts (auto) 7.6, Absolute Lymphs (auto) 3.67, Nucleated RBC % 0 06/28/21 05:30: D-Dimer Quant (PE/DVT) <= 0.27 06/28/21 05:30: Sodium 138, Potassium 3.5, Chloride 103, Carbon Dioxide 29.0, Anion Gap 6, BUN 12, Creatinine 0.91, Estim Creat Clear Calc 124.12, Est GFR (MDRD) Af Amer 125, Est GFR (MDRD) Non-Af 103, BUN/Creatinine Ratio 13.2, Glucose 103, Calcium 8.9, Troponin I High Sens 107 H 06/28/21 07:34: Troponin I High Sens 97 H 06/28/21 11:15: Troponin I High Sens 93 H Micro: Microbiology 06/28/21 07:05 Nasal Secretion SARS-CoV-2 Antigen (Rapid) - Final Cardiology Labs/Tests 06/28/21 05:30: WBC 12.4 H, RBC 5.52, Hgb 15.9, Hct 45.7, MCV 82.8, MCH 28.8, MCHC 34.8, Plt Count 360, MPV 11.5, Immature Gran % (Auto) 0.400, Neut % (Auto) 61.1, Lymph % (Auto) 29.7, [place] % (Auto) 6.7, Eos % (Auto) 1.5, Baso % (Auto) 0.6, Absolute Neuts (auto) 7.6, Nucleated RBC % 0 06/28/21 05:30: D-Dimer Quant (PE/DVT) <= 0.27 06/28/21 05:30: Sodium 138, Potassium 3.5, Chloride 103, Carbon Dioxide 29.0, Anion Gap 6, BUN 12, Creatinine 0.91, Est GFR (MDRD) Af Amer 125, Est GFR (MDRD) Non-Af 103, BUN/Creatinine Ratio 13.2, Glucose 103, Calcium 8.9 Rhythm: Sinus rhythm EKG: As noted above ECHO: As noted below Radiography Diagnostic Testing: Radiology Impression Chest X-Ray 06/28/21 05:37 IMPRESSION: Borderline cardiac enlargement. Nonspecific minimal interstitial prominence. No visualized focal consolidation. Electronically Signed: Eleonora Ge MD at 6:30 EST Tel , Service support , Brain CT 06/28/21 05:38 IMPRESSION: No acute intracranial pathology. Near complete opacification of the left maxillary sinus. Electronically Signed: Aly Huffman DO at 6:36 EST Tel , Service support , Echocardiogram 06/28/21 08:23 Interpretation Summary The study was technically difficult. Contrast injection was performed. Left ventricular systolic function is normal. The estimated ejection fraction is 65 %. Dilated arch. Diastolic function is indeterminate. Ordering Physician: Herman Coles Referring Physician: no PCP noted Performed By: Warren Marrufo RCS
--- NOTE | 2021-06-28 18:26 | EX.PCM.CON.G ---
HPI Consult Data Date of Consult: 06/28/21 HPI Narrative HPI Narrative: YOSEF GRAY, is a 31 M who presented to the ED with chest pain. Patient said the chest pain has been off and on since he was diagnosed with COVID on June 15. He was having a little bit of abdominal pain and some nausea and progressive worsening chest pain. He was discovered to have elevated troponin with a severely elevated blood pressure. He is currently being seen by cardiology and the assumption is that his troponin is elevated secondary to hypertensive urgency. I was requested to see the patient due to worsening lower GI bleeding. Patient says that since he was diagnosed with psoriasis his lower GI bleeding has been getting worse. He does get some crampy abdominal pain associated with urgency and multiple episodes of lower GI bleeding. He has no family history of inflammatory bowel disease. He does not take any nonsteroidals. He does have an issue with frequent nosebleeding. [facility] Medical History (Updated 06/28/21 @ 13:[address] Chapito Martinez MD) Abnormal cardiac enzyme level COVID-19 Encounter for screening for COVID-19 Morbid obesity Psoriasis Uncontrolled hypertension Home Medications NK 06/28/21 [History Last Taken Unknown] Allergy/AdvReac Type Severity Reaction Status Date / Time No Known Allergies Allergy Verified 06/28/21 05:27 Family History (Updated 06/28/21 @ 08:[address] Herman Coles DO) Mother CVA (cerebral vascular accident) Obstructive sleep apnea Diabetes Surgical History no surgical history Social History (Updated 06/28/21 @ 08:[address] Herman Coles DO) Smoking Status: Light Smoker (<10/day) alcohol intake: never substance use type: marijuana ROS Review of Systems ROS Unobtainable: other Constitutional Constitutional: Denies fatigue, fever(s), poor appetite, weight gain or weight loss ENT HEENT: Denies mouth lesions Cardiovascular Cardiovascular: Denies abdominal bloating, abdominal edema or abdominal pain Respiratory/Chest Respiratory/Chest: Denies change in mental status, change in phlegm color, chest congestion or chest tightness Gastrointestinal Gastrointestinal: Reports rectal bleeding Genitourinary Genitourinary: Denies abdominal discomfort, burning urination or itching Musculoskeletal Musculoskeletal: Reports as per HPI; Denies muscle weakness or myalgias Integumentary Integumentary: Denies jaundice Neurologic Neurologic: Denies lack of coordination or weakness Psychiatric Psychiatric: Denies confusion, depression, memory loss, mood swings, paranoia or suicidal ideation Endocrine Endocrinology: Denies systems reviewed and no addt'l complaints, except as documented Hematologic/Lymphatic Hematologic/Lymphatic: Denies anemia, easy bleeding, easy bruising or lymphadenopathy Allergic/Immunologic Allergic/Immunologic: Denies systems reviewed and no addt'l complaints, except as documented Physical Exam Const alert General Appearance: cooperative Orientation / Consciousness: oriented to person HEENT hearing grossly normal bilaterally Head and Scalp: normal to inspection Face and Sinus: face symmetric Nose: external nose normal Mouth: oral and palatal mucosa normal Eyes conjunctivae normal General Eye: normal appearance of both eyes Neck full ROM General: normal visual inspection Lymph Lymphatic: no lymphadenopathy noted Chest inspection of chest normal and palpation of chest normal Chest: symmetrical chest wall rise Resp normal respiratory effort Effort and Inspection: able to speak in complete sentences Cardio regular rate GI non-distended Percussion: normal to percussion Rectal Exam: deferred Neuro Speech: speech normal Gait (Neuro): normal gait Lab / Micro Data Result Diagrams: 06/28/21 05:30 06/28/21 05:30 Labs: Laboratory Results - last 24 hr 06/28/21 05:30: WBC 12.4 H, RBC 5.52, Hgb 15.9, Hct 45.7, MCV 82.8, MCH 28.8, MCHC 34.8, RDW Std Deviation 40.3, RDW Coeff of Angel 13.4, Plt Count 360, MPV 11.5, Immature Gran % (Auto) 0.400, Neut % (Auto) 61.1, Lymph % (Auto) 29.7, [place] % (Auto) 6.7, Eos % (Auto) 1.5, Baso % (Auto) 0.6, Absolute Neuts (auto) 7.6, Absolute Lymphs (auto) 3.67, Nucleated RBC % 0 06/28/21 05:30: D-Dimer Quant (PE/DVT) <= 0.27 06/28/21 05:30: Sodium 138, Potassium 3.5, Chloride 103, Carbon Dioxide 29.0, Anion Gap 6, BUN 12, Creatinine 0.91, Estim Creat Clear Calc 124.12, Est GFR (MDRD) Af Amer 125, Est GFR (MDRD) Non-Af 103, BUN/Creatinine Ratio 13.2, Glucose 103, Calcium 8.9, Troponin I High Sens 107 H 06/28/21 07:34: Troponin I High Sens 97 H 06/28/21 11:15: Troponin I High Sens 93 H Micro: Microbiology 06/28/21 07:05 Nasal Secretion SARS-CoV-2 Antigen (Rapid) - Final Radiology Impression Chest X-Ray 06/28/21 05:37 IMPRESSION: Borderline cardiac enlargement. Nonspecific minimal interstitial prominence. No visualized focal consolidation. Electronically Signed: Eleonora Ge MD at 6:30 EST Tel , Service support , Brain CT 06/28/21 05:38 IMPRESSION: No acute intracranial pathology. Near complete opacification of the left maxillary sinus. Electronically Signed: Aly Huffman DO at 6:36 EST Tel , Service support , Echocardiogram 06/28/21 08:23 Interpretation Summary The study was technically difficult. Contrast injection was performed. Left ventricular systolic function is normal. The estimated ejection fraction is 65 %. Dilated arch. Diastolic function is indeterminate. Ordering Physician: Herman Coles Referring Physician: no PCP noted Performed By: Warren Marrufo RCS Chest CTA 06/28/21 12:37 IMPRESSION: 1. No central or segmental pulmonary embolism. No thoracic aortic aneurysm or dissection. 2. Symmetric bilateral gynecomastia. Electronically Signed: Doroteo Chavez MD ([place]) at 14:21 EST , Service support , Assessment & Plan Assessment/Plan (1) Bloody stools: PLAN: The diagnosis for lower GI bleeding in a young male with psoriasis would be inflammatory bowel disease (less likely Crohn's disease and more likely ulcerative colitis), stercoral ulcer ischemic colitis,, anal fissure and less likely hemorrhoidal disease. On physical exam he had no hemorrhoids that were seen or felt. He has agreed to undergo colonoscopy. He was explained alternatives, risk, benefits including outstanding bleeding, infection, sepsis, perforation, need for emergent surgery . He will have an ASA of 2. Charges/Coding Visit Charges Inpatient E&M: 20143 Init Hosp L2
[2021-06-28] MEDS: Bisacodyl 5 MG Tablet 20 MG PO (19:45)
[2021-06-28] MEDS: Electrolyte Solution/Peg's 4000 ML PO (20:51)
[2021-06-29] VITALS (15 sets, daily range): BP systolic 127–153; BP diastolic 77–95; PULSE 68–97; RESP 16–18; TEMP 36.3–36.9; O2SAT 92–98
[2021-06-29 05:39] LABS: Absolute Lymphocyte Count 2.68 X10^3/uL (0.83-4.51); Absolute Neutrophil Count 6.5 X10^3/uL (2.0-7.7); Basophil# 0.04 X10^3/uL; Basophil% 0.4 % (0-1); Eosinophil# 0.18 X10^3/uL; Eosinophils% 1.8 % (0-5); Hematocrit 44.9 % (40-54); Hemoglobin 15.7 g/dL (13.0-16.5); Lymphocyte # 2.68 X10^3/ul (0.83-4.51); Lymphocyte % 26.5 % (19-41); Mean Platelet Vol. 11.5 fl (6.2-12.0); Monocyte# 0.68 X10^3/uL; Monocyte% 6.7 % (0-10); NRBC Flagged by Analyzer 0 % (0-5); Neutrophil # 6.52 X10^3/uL (2.7-7.7); Neutrophil % 64.3 % (47-70); Platelet Count 343 K/mm3 (150-450); Red Blood Count 5.41 M/mm3 (4.6-6.2); White Blood Count 10.1 K/mm3 (4.4-11.0)
[2021-06-29] MEDS: Lisinopril 20 MG Tablet PO (05:45)
[2021-06-29 05:52] LABS: ALB/GLOB Ratio 0.9 RATIO (0.9-2.4); AST(SGOT) 14 U/L (15-37); Alanine Aminotransfer ALT/SGPT 27 U/L (16-61); Albumin, Serum 3.5 g/dL (3.2-5.0); Alkaline Phosphatase 55 U/L (45-117); Anion Gap 6 (5-15); BUN 11 mg/dL (7-18); BUN/Creat Ratio 14.3 RATIO (10-20); Calcium,Total 8.5 mg/dL (8.5-10.1); Chloride 105 mmol/L (98-107); Cholesterol 164 mg/dL (200); Creatinine, Serum 0.77 mg/dL (0.70-1.30); EST Glomerular Filtration Rate 124 mL/min (>60); Est Glom Filt Rate - Afr Amer 150 mL/min (>60); Estimated Creatinine Clearance 146.69 ml/min; Globulin 4.1 g/dL (2.2-4.2); Glucose 85 mg/dL (74-106); High Density Lipoprotein 32 mg/dL; Potassium 3.5 mmol/L (3.5-5.1); Protein, Total 7.6 g/dL (6.4-8.2); Sodium Level 139 mmol/L (136-145); Thyroid Stim Hormone (TSH) 1.64 uIU/mL (0.358-3.74); Triglycerides 276 mg/dL; Very Low Density Lipoprotein 55 mg/dL (5-40)
--- NOTE | 2021-06-29 05:55 | EKG12_ITS ---
Test Reason : AM EKG Blood Pressure : / mmHG Vent. Rate : 079 BPM Atrial Rate : 079 BPM P-R Int : 204 ms QRS Dur : 106 ms QT Int : 412 ms P-R-T Axes : 035 019 076 degrees QTc Int : 472 ms Normal sinus rhythm Nonspecific T wave abnormality Prolonged QT Abnormal ECG When compared with ECG of 28-JUN-2021 08:10, MANUAL COMPARISON REQUIRED, DATA IS UNCONFIRMED Confirmed by MAIRA IBRAHIM, DEBBY ([id number]), technical editor CATALINO IRIZARRY ([id number]) on 06/29/2021 1:36:21 PM Referred By: UNA Confirmed By:DEBBY RAO MD
--- NOTE | 2021-06-29 08:40 | PN.CARD_ITS ---
Subjective Subjective The patient is awake and alert. He denies any ongoing chest discomfort. He denies any continued headache. He states overall he feels much better. Objective Data Vital Signs: Vital Signs Temp Pulse Resp BP Pulse Ox 97.9 F 70 18 130/87 H 96 06/29/21 06:00 06/29/21 07:00 06/29/21 06:00 06/29/21 06:00 06/29/21 06:00 Oxygen Delivery Method Room Air Weight: 334 lb 7.06 oz Body Mass Index (BMI) 46.6 Intake & Output: Intake and Output for Last 24 Hours 06/27/21 06/28/21 06/29/21 23:59 23:59 23:59 Intake Total 3640 / 3640 500 / 500 Balance 3640 / 3640 500 / 500 Lab / Micro Data Result Diagrams: 06/29/21 05:10 06/29/21 05:10 Labs: Laboratory Results - last 24 hr 06/28/21 11:15: Troponin I High Sens 93 H 06/29/21 05:10: WBC 10.1, RBC 5.41, Hgb 15.7, Hct 44.9, MCV 83.0, MCH 29.0, MCHC 35.0, RDW Std Deviation 42.0, RDW Coeff of Angel 14.0, Plt Count 343, MPV 11.5, Immature Gran % (Auto) 0.300, Neut % (Auto) 64.3, Lymph % (Auto) 26.5, [place] % (Auto) 6.7, Eos % (Auto) 1.8, Baso % (Auto) 0.4, Absolute Neuts (auto) 6.5, Absolute Lymphs (auto) 2.68, Nucleated RBC % 0 06/29/21 05:10: Sodium 139, Potassium 3.5, Chloride 105, Carbon Dioxide 28.0, Anion Gap 6, BUN 11, Creatinine 0.77, Estim Creat Clear Calc 146.69, Est GFR (MDRD) Af Amer 150, Est GFR (MDRD) Non-Af 124, BUN/Creatinine Ratio 14.3, Glucose 85, Calcium 8.5, Total Bilirubin 1.10 H, AST 14 L, ALT 27, Alkaline Phosphatase 55, Total Protein 7.6, Albumin 3.5, Globulin 4.1, Albumin/Globulin Ratio 0.9, Triglycerides 276 H, Cholesterol 164, LDL Cholesterol 77, VLDL Cholesterol 55 H, HDL Cholesterol 32 L, TSH 1.64 Micro: Microbiology 06/28/21 07:05 Nasal Secretion SARS-CoV-2 Antigen (Rapid) - Final Cardiology Labs/Tests 06/29/21 05:10: WBC 10.1, RBC 5.41, Hgb 15.7, Hct 44.9, MCV 83.0, MCH 29.0, MCHC 35.0, Plt Count 343, MPV 11.5, Immature Gran % (Auto) 0.300, Neut % (Auto) 64.3, Lymph % (Auto) 26.5, [place] % (Auto) 6.7, Eos % (Auto) 1.8, Baso % (Auto) 0.4, Absolute Neuts (auto) 6.5, Nucleated RBC % 0 06/29/21 05:10: Sodium 139, Potassium 3.5, Chloride 105, Carbon Dioxide 28.0, Anion Gap 6, BUN 11, Creatinine 0.77, Est GFR (MDRD) Af Amer 150, Est GFR (MDRD) Non-Af 124, BUN/Creatinine Ratio 14.3, Glucose 85, Calcium 8.5, Total Bilirubin 1.10 H, Triglycerides 276 H, Cholesterol 164, LDL Cholesterol 77, VLDL Cholesterol 55 H, HDL Cholesterol 32 L Rhythm: Sinus rhythm EKG: Sinus rhythm; poor R wave progression; nonspecific T wave abnormality ECHO: As noted below Renal artery duplex study: Pending Pharmacologic stress nuclear imaging study: Pending Radiography Diagnostic Testing: Radiology Impression Echocardiogram 06/28/21 08:23 Interpretation Summary The study was technically difficult. Contrast injection was performed. Left ventricular systolic function is normal. The estimated ejection fraction is 65 %. Dilated arch. Diastolic function is indeterminate. Ordering Physician: Herman Coles Referring Physician: no PCP noted Performed By: Warren Marrufo RCS Chest CTA 06/28/21 12:37 IMPRESSION: 1. No central or segmental pulmonary embolism. No thoracic aortic aneurysm or dissection. 2. Symmetric bilateral gynecomastia. Electronically Signed: Doroteo Chavez MD ([facility]) at 14:21 EST , Service support , Physical Exam Narrative This is a 31-year-old obese white male who appears to be resting comfortably at the moment in no acute distress. Const alert, oriented x3 and no apparent distress Orientation / Consciousness: awake HEENT normocephalic and hearing grossly normal bilaterally Eyes PERRL, EOMs intact bilaterally and conjunctivae normal Neck full ROM, supple and no JVD Resp clear to auscultation bilaterally Cardio regular rate, regular rhythm, S1 normal heart sound and S2 normal heart sound Cardio Narrative: Distant heart tones GI normal to inspection, nondistended, normoactive bowel sounds Extremity no pedal edema Skin Skin Narrative: Findings compatible with psoriasis Neuro oriented x3, moves all extremities, no focal motor deficits and no sensory deficits noted Psych mental status grossly normal Assessment & Plan Assessment/Plan (1) Abnormal cardiac enzyme level: PLAN: The patient does have abnormal cardiac enzyme levels. His enzyme levels may be secondary to his urgent/emergent hypertensive event. He has undergone evaluation with ECG with no acute changes. He is undergone evaluation with transthoracic echocardiogram which appears to suggest that his left ventricular wall motion and systolic function are preserved. Based upon the concerns that this may be related to his hypertensive event he is undergoing further cardiovascular evaluation from a noninvasive standpoint at this time with a pharmacologic stress nuclear imaging study. Depending upon the findings he may or may not need further invasive cardiovascular evaluation. In the interim he should continue medical therapy with attempts at bringing his blood pressure under better control. (2) Hypertensive emergency: PLAN: The patient was unaware of any hypertensive related issues until recently. He may have a history of hypertension which has not been controlled. His hypertension could lead to his symptoms as well as his cardiac enzyme change. He has been placed on medical therapy. His blood pressure does appear to be improving. He is undergoing evaluation with a renal artery duplex study and attempt to evaluate for any obvious renal artery stenosis that would be contributing to his hypertensive event. (3) Chest pain: QUALIFIERS: Chest pain type: unspecified Qualified Code(s): R07.9 - Chest pain, unspecified PLAN: The patient's chest discomfort appears to be somewhat atypical. He will continue his cardiovascular evaluation as noted above. (4) Bloody stools: PLAN: The patient has a history of hematochezia which has been unexplained. He has been evaluated by gastroenterology and is pending upcoming endoscopy pr ocedures. (5) Morbid obesity: PLAN: Unfortunately the patient is morbidly obese. This does have to be taken into consideration with respect to his ongoing e valuation and care. (6) COVID-19: PLAN: The patient was diagnosed with COVID-19 earlier this month. He had a repeat COVID-19 test this day which was negative. He is not currently in COVID-19 isolation. Addt'l Comments This note was generated using a voice recognition system and there may be incorrect words, spelling or punctuation that were not noted when reviewing the office note prior to saving.
--- NOTE | 2021-06-29 09:05 | STRESSREP_ITS ---
Stress Test Report Date: 06-29-2021 Procedure: Pharmacologic stress nuclear imaging study Indications: Abnormal cardiac enzymes; abnormal ECG; hypertensive urge ncy/emergency Consent: Per the patient Procedure: The patient underwent pharmacologic (Regadenoson 0.4mg ) evaluation with a peak heart rate of 107 beats per minute (50%predicted maximal heart rate) and a peak blood pressure of 152/94 mmHg. The baseline ECG demonstrated normal sinus rhythm; poor R wave progression. The peak pharmacologic ECG demonstrated no obvious ECG changes. There were no cardiac dysrhythmias pretest, during pharmacologic infusion, or recovery. There was no complaint of chest discomfort during pharmacologic infusion or recovery. The examination was discontinued secondary to completion of protocol. Impression: 1. Pharmacologic (Regadenoson) evaluation 2. Peak pharmacologic ECG with no obvious ECG changes. 3. There were no cardiac dysrhythmias pretest, during pharmacologic infusion, or recovery. 4. Nuclear images pending Myocardial perfusion imaging study: Technique: The patient was injected with 15.0 millicuries of technetium 99m Cardiolite and subsequently rest SPECT Cardiolite nuclear imaging was obtained in the horizontal long, vertical long, and short axis views. The patient underwent pharmacologic (Regadenoson) evaluation with a peak heart rate of 107 beats per minute (50% percent predicted maximal heart rate) and a peak blood pressure of 152/94 mmHg. The patient was injected with 44.7 millicuries of technetium 99m Cardiolite and subsequently stress SPECT Cardiolite nuclear imaging was obtained in the horizontal long, vertical long, and short axis views. A gated Cardiolite study at peak stress was obtained. Interpretation: Rest and stress SPECT Cardiolite nuclear imaging status post realignment and normalization demonstrate the appearance of body motion during image acquisition at rest and in stress and area of diminished myocardial perfusion/tracer uptake in portions of the basal inferior segments without significant change, at rest and area of diminished myocardial perfusion/tracer uptake in the distal inferior segments which appears to improve and/or normalize following stress, and following stress and area of diminished myocardial perfusion/tracer uptake in the mid inferior segments. There is end systolic thickening and brightening. The gated Cardiolite study demonstrates myocardial thickening and inward wall motion. The reported LVEF is 54%. Impression: 1. Rest and stress SPECT her nuclear imaging study demonstrate the appearance of body motion during image acquisition and myocardial perfusion changes at rest which appear to improve and/or normalize following stress and myocardial perfusion changes following stress that are more prominent than rest raising concerns of the effects of body motion during image acquisition, however, an area of stress-induced myocardial ischemia in portions of the mid inferior segment cannot necessarily be excluded. 2. The gated Cardiolite study reports an LVEF of 54%. This note was generated with Given.toation software. It may contain incorrect words, spelling, and punctuation that were not noted in checking the note before signing.
--- NOTE | 2021-06-29 12:06 | OP.CCLET_ITS ---
02/15/2022 Becki Lo [facility] [address] [place] [address] Re : Colonoscopy procedure for García Javier Dear Dr. Lo This procedure was performed on June. My impressions and recommendations are as follows: Impressions : - Hemorrhoids found on perianal exam. - Bleeding external and internal hemorrhoids. Banded. - No specimens collected. Recommendations : - Refer to a surgeon in 2 days. - Use Rectiv (nitroglycerin) ointment 0.4% 1 inch per rectum q 12 hrs for 3 weeks. - No recommendation at this time regarding repeat colonoscopy due to young age. - Continue present medications. My findings are described in the full procedure note, which is enclosed. If I can be of further assistance, please feel free to contact me at . Sincerely, Jeevan Friend, 06/29/2021 12:05:39 PM This report has been signed electronically.
--- NOTE | 2021-06-29 12:06 | OP.COLON_ITS ---
Patient Name: García Javier Procedure Date: 06/29/2021 11:25 AM Date of : 1990 Age: 31 Procedure: Colonoscopy Indications: Hematochezia Providers: Jeevan New DO Medicines: See the Anesthesia note for documentation of the administered medications Patient Profile: This is a 31 year old male. Refer to note in patient chart for documentation of history and physical. Last Colonoscopy: none. The patient's first colonoscopy is today. Complications: No immediate complications. Procedure: Pre-Anesthesia Assessment: - Prior to the procedure, a History and Physical was performed, and patient medications and allergies were reviewed. The risks and benefits of the procedure and the sedation options and risks were discussed with the patient. All questions were answered and informed consent was obtained. Patient identification and proposed procedure were verified by the physician in the pre-procedure area. Mental Status Examination: alert and oriented. Airway Examination: normal oropharyngeal airway and neck mobility. Respiratory Examination: clear to auscultation. CV Examination: normal. Prophylactic Antibiotics: The patient does not require prophylactic antibiotics. Prior Anticoagulants: The patient has taken no previous anticoagulant or antiplatelet agents. After reviewing the risks and benefits, the patient was deemed in satisfactory condition to undergo the procedure. The anesthesia plan was to use moderate sedation / analgesia (conscious sedation). Immediately prior to administration of medications, the patient was re-assessed for adequacy to receive sedatives. The heart rate, respiratory rate, oxygen saturations, blood pressure, adequacy of pulmonary ventilation, and response to care were monitored throughout the procedure. The physical status of the patient was re-assessed after the procedure. After I obtained informed consent, the scope was passed under direct vision. Throughout the procedure, the patient's blood pressure, pulse, and oxygen saturations were monitored continuously. The pediatric colonoscope was introduced through the anus and advanced to the cecum, identified by appendiceal orifice and ileocecal valve. The Endoscope was introduced through the and advanced to. The colonoscopy was performed without difficulty. The patient tolerated the procedure well. The quality of the bowel preparation was good. Moderate Sedation: Moderate (conscious) sedation was administered by the endoscopy nurse and supervised by the endoscopist. The following parameters were monitored: oxygen saturation, heart rate, blood pressure, and response to care. Total physician intraservice time was 2 minutes. Scope In: 11:36:11 AM Scope Withdrawal Time 0 hours 20 minutes 54 seconds Scope Out: 11:59:35 AM Total Procedure Duration Time 0 hours 23 minutes 24 seconds Findings: Hemorrhoids were found on perianal exam. Bleeding external and internal hemorrhoids were found during retroflexion, during perianal exam, during digital exam, during anoscopy and during endoscopy. The hemorrhoids were severe, large and Grade III (internal hemorrhoids that prolapse but require manual reduction). A hemorrhoid was isolated with endoscopy. The ligator was positioned over the hemorrhoid at the left lateral position. Suction was applied and one rubber band was placed over the hemorrhoid. This was checked to make certain that the muscularis was free of the band. Post-banding digital rectal exam showed band in good position. The patient appeared stable and comfortable at the end of the procedure. Impression: - Hemorrhoids found on perianal exam. - Bleeding external and internal hemorrhoids. Banded. - No specimens collected. Recommendation: - Refer to a surgeon in 2 days. - Use Rectiv (nitroglycerin) ointment 0.4% 1 inch per rectum q 12 hrs for 3 weeks. - No recommendation at this time regarding repeat colonoscopy due to young age. - Continue present medications. Procedure Code(s): --- Professional --- 70728, Colonoscopy, flexible; with band ligation(s) (eg, hemorrhoids) CPT copyright 2017 [employer]. All rights reserved. The codes documented in this report are preliminary and upon guard range review may be revised to meet current compliance requirements. Jeevan New DO 06/29/2021 12:05:39 PM This report has been signed electronically. Number of Addenda: 1 Note Initiated On: 06/29/2021 11:25 AM Addendum Number: 1 Addendum Date: 02/15/2022 6:21:45 AM MAC was used instead of moderate sedation for the patient. Jeevan New DO 02/15/2022 6:21:51 AM This report has been signed electronically.
--- NOTE | 2021-06-29 14:02 | PN.HOSP_ITS ---
Subjective Subjective Feels well. Objective Data Objective Data Vital Signs: Vital Signs Temp Pulse Resp BP Pulse Ox 36.6 C 78 16 130/79 H 96 06/29/21 12:23 06/29/21 12:23 06/29/21 12:23 06/29/21 12:23 06/29/21 12:23 Oxygen Delivery Method Room Air Weight: 151.7 kg Body Mass Index (BMI) 46.6 Intake & Output: Intake and Output for Last 24 Hours 06/27/21 06/28/21 06/29/21 23:59 23:59 23:59 Intake Total 3640 / 3640 500 / 500 Balance 3640 / 3640 500 / 500 Lab / Micro Data Result Diagrams: 06/29/21 05:10 06/29/21 05:10 Labs: Laboratory Results - last 24 hr 06/29/21 05:10: WBC 10.1, RBC 5.41, Hgb 15.7, Hct 44.9, MCV 83.0, MCH 29.0, MCHC 35.0, RDW Std Deviation 42.0, RDW Coeff of Angel 14.0, Plt Count 343, MPV 11.5, Immature Gran % (Auto) 0.300, Neut % (Auto) 64.3, Lymph % (Auto) 26.5, [place] % (Auto) 6.7, Eos % (Auto) 1.8, Baso % (Auto) 0.4, Absolute Neuts (auto) 6.5, Absolute Lymphs (auto) 2.68, Nucleated RBC % 0 06/29/21 05:10: Sodium 139, Potassium 3.5, Chloride 105, Carbon Dioxide 28.0, Anion Gap 6, BUN 11, Creatinine 0.77, Estim Creat Clear Calc 146.69, Est GFR (MDRD) Af Amer 150, Est GFR (MDRD) Non-Af 124, BUN/Creatinine Ratio 14.3, Glucose 85, Calcium 8.5, Total Bilirubin 1.10 H, AST 14 L, ALT 27, Alkaline Phosphatase 55, Total Protein 7.6, Albumin 3.5, Globulin 4.1, Albumin/Globulin Ratio 0.9, Triglycerides 276 H, Cholesterol 164, LDL Cholesterol 77, VLDL Cholesterol 55 H, HDL Cholesterol 32 L, TSH 1.64 Micro: Microbiology 06/28/21 07:05 Nasal Secretion SARS-CoV-2 Antigen (Rapid) - Final Radiography Diagnostic Testing: Radiology Impression Renal Artery Duplex 06/28/21 08:39 Interpretation Summary Maximal dimension of the proximal abdominal aorta 1.62 x 1.53 cm in diameter, normal Normal flow velocity abdominal aorta Less than 60% stenosis right renal artery Maintained right renal length of 13.22 cm Less than 60% stenosis left renal artery Maintained left renal length of 13.44 cm Ordering Physician: Chapito Martinez Performed By: Jaime Bridges, RVT Chest CTA 06/28/21 12:37 IMPRESSION: 1. No central or segmental pulmonary embolism. No thoracic aortic aneurysm or dissection. 2. Symmetric bilateral gynecomastia. Electronically Signed: Doroteo Chavez MD (Brooks) at 14:21 EST , Service support , Physical Exam Const alert and no apparent distress Resp normal respiratory effort, no retractions, no use of accessory muscles and clear to auscultation bilaterally Cardio regular rate, regular rhythm, S1 normal heart sound and S2 normal heart sound GI normal to inspection, nondistended, normoactive bowel sounds and non-tender Extremity normal to inspection and full ROM Assessment & Plan Assessment/Plan (1) Hypertensive emergency: (2) Chest pain: QUALIFIERS: Chest pain type: unspecified Qualified Code(s): R07.9 - Chest pain, unspecified (3) Elevated troponin: (4) Bloody stools: PLAN: 1. Hypertensive emergency Resolved Associated with chest pain and elevated troponins Blood pressure much improved after labetalol Start lisinopril Suspect patient has had chronically elevated blood pressure for a long period of time. Patient had an urgent care visits on the sixth of this month and his blood pressure was in the 200s at that time. 2. Elevated troponins May be due to demand from his hypertension. Check an echocardiogram Consult cardiology Stress equivocal Cath pending 3. Hematochezia 2/2 to hemorrhoids (internal and external) And ongoing issue according to patient since he was 15 years old Follow up with general surgery. If does require PCI, will need to determine if course of action: stents then address hemorrhoids later or vise versa. Addressed this possibility with esther naranjo. 4. Morbid obesity Complicates care and overall recovery. Advised patient to be evaluated for sleep apnea as outpatient 5. Psoriasis Patient has 3 lesions on his scalp as well as reports of his body involving fingernails as well Follow-up with dermatology as outpatient 6. VTE prophylaxis SCDs. Holding off on chemical prophylaxis given the hematochezia Charges/Coding Visit Charges Inpatient E&M: 13418 Subs Hosp L2
--- NOTE | 2021-06-29 14:32 | CASEMGMT ---
According to the [facility] community plan website, the following are in-network tertiary facilities: [facility], [facility], [facility], [facility], [facility], [facility], [facility], [facility], [facility], and . Bernard LAYNE CM
[2021-06-29] MEDS: Aspirin 325 MG Tablet PO (18:54)
[2021-06-30] VITALS (12 sets, daily range): BP systolic 133–164; BP diastolic 89–99; PULSE 58–91; RESP 16–18; TEMP 36.5–37; O2SAT 94–98
--- NOTE | 2021-06-30 05:55 | EKG12_ITS ---
Test Reason : AM EKG Blood Pressure : / mmHG Vent. Rate : 079 BPM Atrial Rate : 079 BPM P-R Int : 200 ms QRS Dur : 110 ms QT Int : 394 ms P-R-T Axes : 038 007 066 degrees QTc Int : 451 ms Normal sinus rhythm Incomplete left bundle branch block Borderline ECG When compared with ECG of 29-JUN-2021 05:59, No significant change was found Confirmed by MAIRA IBRAHIM, DEBBY ([id number]), videotape editor CATALINO IRIZARRY ([id number]) on 06/30/2021 1:57:01 PM Referred By: UNA Confirmed By:DEBBY RAO MD
[2021-06-30] MEDS: Aspirin 81 MG TAB.CHEW PO (06:16)
[2021-06-30] MEDS: Lisinopril 20 MG Tablet PO (06:16)
--- NOTE | 2021-06-30 07:31 | PN.CARD_ITS ---
Subjective Subjective The patient appears to be awake and alert. He has had no new acute cardiac complaints. Objective Data Vital Signs: Vital Signs Temp Pulse Resp BP Pulse Ox 98.0 F 76 18 154/99 H 95 06/30/21 06:15 06/30/21 06:15 06/30/21 06:15 06/30/21 06:15 06/30/21 06:15 Oxygen Delivery Method Room Air Weight: 334 lb 7.06 oz Body Mass Index (BMI) 46.6 Intake & Output: Intake and Output for Last 24 Hours 06/28/21 06/29/21 06/30/21 23:59 23:59 23:59 Intake Total 3640 / 3640 1310 / 1310 0 / 0 Balance 3640 / 3640 1310 / 1310 0 / 0 Lab / Micro Data Result Diagrams: 06/29/21 05:10 06/29/21 05:10 Cardiology Labs/Tests Rhythm: Sinus rhythm EKG: Sinus rhythm; nonspecific T wave abnormality ECHO: Interpretation Summary The study was technically difficult. Contrast injection was performed. Left ventricular systolic function is normal. The estimated ejection fraction is 65 %. Dilated arch. Diastolic function is indeterminate. Stress Test: Stress Test Report Date: 06-29-2021 Procedure: Pharmacologic stress nuclear imaging study Indications: Abnormal cardiac enzymes; abnormal ECG; hypertensive urgency/emergency Consent: Per the patient Procedure: The patient underwent pharmacologic (Regadenoson 0.4mg ) evaluation with a peak heart rate of 107 beats per minute (50%predicted maximal heart rate) and a peak blood pressure of 152/94 mmHg. The baseline ECG demonstrated normal sinus rhythm; poor R wave progression. The peak pharmacologic ECG demonstrated no obvious ECG changes. There were no cardiac dysrhythmias pretest, during pharmacologic infusion, or recovery. There was no complaint of chest discomfort during pharmacologic infusion or recovery. The examination was discontinued secondary to completion of protocol. Impression: 1. Pharmacologic (Regadenoson) evaluation 2. Peak pharmacologic ECG with no obvious ECG changes. 3. There were no cardiac dysrhythmias pretest, during pharmacologic infusion, or recovery. 4. Nuclear images pending Myocardial perfusion imaging study: Technique: The patient was injected with 15.0 millicuries of technetium 99m Cardiolite and subsequently rest SPECT Cardiolite nuclear imaging was obtained in the horizontal long, vertical long, and short axis views. The patient underwent pharmacologic (Regadenoson) evaluation with a peak heart rate of 107 beats per minute (50% percent predicted maximal heart rate) and a peak blood pressure of 152/94 mmHg. The patient was injected with 44.7 millicuries of technetium 99m Cardiolite and subsequently stress SPECT Cardiolite nuclear imaging was obtained in the horizontal long, vertical long, and short axis views. A gated Cardiolite study at peak stress was obtained. Interpretation: Rest and stress SPECT Cardiolite nuclear imaging status post realignment and normalization demonstrate the appearance of body motion during image acquisition at rest and in stress and area of diminished myocardial perfusion/tracer uptake in portions of the basal inferior segments without significant change, at rest and area of diminished myocardial perfusion/tracer uptake in the distal inferior segments which appears to improve and/or normalize following stress, and following stress and area of diminished myocardial perfusion/tracer uptake in the mid inferior segments. There is end systolic thickening and brightening. The gated Cardiolite study demonstrates myocardial thickening and inward wall motion. The reported LVEF is 54%. Impression: 1. Rest and stress SPECT her nuclear imaging study demonstrate the appearance of body motion during image acquisition and myocardial perfusion changes at rest which appear to improve and/or normalize following stress and myocardial per fusion changes following stress that are more prominent than rest raising concerns of the effects of body motion during image acquisition, however, an area of stress-induced myocardial ischemia in portions of the mid inferior segment cannot necessarily be excluded. 2. The gated Cardiolite study reports an LVEF of 54%. Radiography Diagnostic Testing: Radiology Impression Renal Artery Duplex 06/28/21 08:39 Interpretation Summary Maximal dimension of the proximal abdominal aorta 1.62 x 1.53 cm in diameter, normal Normal flow velocity abdominal aorta Less than 60% stenosis right renal artery Maintained right renal length of 13.22 cm Less than 60% stenosis left renal artery Maintained left renal length of 13.44 cm Ordering Physician: Chapito Martinez Performed By: Jaime Bridges RVT Physical Exam Narrative This is a 31-year-old obese white male who appears to be resting comfortably at the moment in no acute distress. Const alert, oriented x3 and no apparent distress Orientation / Consciousness: awake HEENT normocephalic and hearing grossly normal bilaterally Eyes PERRL, EOMs intact bilaterally and conjunctivae normal Neck full ROM, supple and no JVD Resp clear to auscultation bilaterally Cardio regular rate, regular rhythm, S1 normal heart sound and S2 normal heart sound Cardio Narrative: Distant heart tones GI normal to inspection, nondistended, normoactive bowel sounds Extremity no pedal edema Skin Skin Narrative: Findings compatible with psoriasis Neuro oriented x3, moves all extremities, no focal motor deficits and no sensory deficits noted Psych mental status grossly normal Assessment & Plan Assessment/Plan (1) Abnormal cardiac enzyme level: PLAN: The patient does have abnormal cardiac enzyme levels. Technically this would be compatible with a non-ST segment elevation VA. At the moment the concern is this may be a type II event brought out by his hypertensive urgency/emergency. However, based upon his stress test findings it has been recommended he undergo further evaluation of his coronary anatomy with diagnostic cardiac catheteri zation. The procedure risk were discussed with him. He was agreeable to this approach. In the interim he should continue medical therapy with attempts at bringing his blood pressure under better control. (2) Hypertensive emergency: PLAN: The patient was unaware of any hypertensive related issues until recently. He may have a history of hypertension which has not been controlled. His hypertension could lead to his symptoms as well as his cardiac enzyme change. He has been placed on medical therapy. His blood pressure does appear to be improving. His renal artery duplex study, which is noted above, does not appear to demonstrate hemodynamically significant renal artery stenosis to explain his hypertension. (3) Chest pain: QUALIFIERS: Chest pain type: unspecified Qualified Code(s): R07.9 - Chest pain, unspecified PLAN: The patient's chest discomfort appears to be somewhat atypical. He will continue his cardiovascular evaluation as noted above. (4) Bloody stools: PLAN: The patient has a history of hematochezia which has been unexplained. He has been evaluated by gastroenterology. It appears there were concerns of internal and external hemorrhoids. According to the report bands were placed. The patient does believe he may have passed one of the bands with his bowel movement yesterday. According to information from Dr. Rouse, based upon a conversation he had with Dr. New, it appears the patient can proceed from a cardiovascular standpoint with antiplatelet agents such as aspirin as well as clopidogrel to/Plavix type agents if needed. (5) Morbid obesity: PLAN: Unfortunately the patient is morbidly obese. This does have to be taken into consideration with respect to his ongoing evaluation and care. (6) COVID-19: PLAN: The patient was diagnosed with COVID-19 earlier this month. He had a repeat COVID-19 test this day which was negative. He is not currently in COVID-19 isolation. Addt'l Comments Overall, the patient will continue medical management as deemed appropriate. He will proceed with further evaluation with diagnostic cardiac catheterization. Depending upon the findings he may or may not need further cardiac evaluation/care superimposed upon his ongoing hypertension. He will also need to continue to follow with gastroenterology as deemed appropriate. He also needs to establish with primary care. This note was generated using a voice recognition system and there may be incorrect words, spelling or punctuation that were not noted when reviewing the office note prior to saving. Procedure Criteria Type of Procedure Procedure Type: Elective Elective Risks - COVID COVID Risk Discussion: The surgeon/proceduralist and patient have discussed in detail the risk of exposure to and/or potential harm posed by the COVID-19 virus with having a surgery/procedure at this time versus the risk of delaying the surgery/procedure. It is not possible to know either the risk of delaying the surgery or procedure or chance of getting an infection with perfect accuracy, but a joint decision was made between the patient and the surgeon/proceduralist to proceed at this time with the scheduled surgery/procedure as indicated on the consent form.
--- NOTE | 2021-06-30 08:43 | CL.D_ITS ---
Patient Name: YOSEF GRAY Study Date: 06/30/2021 Performing: Chapito Martinez MD Ht: 71 inches 180 cm : 1990 Wt: 335.5 lbs 152 kg Age: 31 Gender: male BSA: 2.62 PROCEDURE(S) PERFORMED DC01-([id number])LHC/COR/LV CLINICAL PROFILE AND INDICATIONS Indications: ACS > 24 hrs, Suspected CAD Heart Failure: None Stress/Imaging Date: 06/29/2021tress Test with SPECT MPI: Positive Intermediate Risk Angina Classification Anginal Classification w/in 2 Weeks: CCS IV CAD Presentations: Non-STEMI. CONCLUSIONS Normal Left Ventricular End Diastolic Pressure Normal LV size, wall motion,and systolic function LVEF: by LV gram 55 % Normal coronary arteries RECOMMENDATIONS Risk factor modification Medical therapy DESCRIPTION OF PROCEDURE The patient arrived to the procedure lab. The risks and benefits of the procedure as well as a full d escription of our services here and current unavailability of surgical backup were fully explained to the patient and/or their significant other prior to the catheterization. The Timeout was completed, verifying the correct patient and procedure. The patient's procedural site was prepped and draped in the usual fashion. Local anesthetic was given subcutaneously to right radial region with Lidocaine 2% . Local anesthetic was given subcutaneously to right groin region with Lidocaine 2%. Using a modified Seldinger technique, arterial access was obtained via the right radial artery, a 6Fr sheath was inse rted., arterial access was obtained via the right femoral artery, a 4Fr sheath was inserted Left Cor onary Artery selective angiography was performed in multiple views using a 4 Fr. JL5 catheter. Right Coronary Artery selective angiography was then performed in multiple views using a 4 Fr. 3DRC catheter. Left Ventriculography was performed in RAINEY projection using a 4 Fr. Pigtail catheter. LV to AO pullback pressures were then recorded.The arterial sheath was pulled and manual compression applied until hemostasis is achieved.. The arterial sheath was pulled and a TR Band was applied for h emostasis w/ 10ml air CORONARY ANGIOGRAPHY DOMINANCE: Right Dominant LEFT HEART ASSESSMENT Left Ventricular Ejection Fraction: by LV Gram 55 % Normal LV wall motion Normal Left Ventricular End Diastolic Pressure LVEDP: 5 mmHg LEFT MAIN: Angiographically normal LEFT ANTERIOR DESCENDING ARTERY: Angiographically normal CIRCUMFLEX ARTERY: Angiographically normal RAMUS: Angiographically normal RIGHT CORONARY ARTERY: Angiographically normal AORTIC ROOT: Angiographically normal COMPLICATIONS No Complications PROCEDURE MEDICATIONS Versed 2 mg IV Fentanyl 50 mcg IV Versed 1 mg IV Fentanyl 50 mcg IV Oxygen: 2 L/min via nasal cannula Heparin given IA 06/30/2021 07:46:36 Verapamil 2.5mg, Ntg 100mcgs, 3000 units of Heparin given IA 06/30/2021 07:46:36 SUMMARY OF HEMODYNAMIC DATA Time AIR REST ECG 07:26:35 Art 168/89 (115) 07:43:47 AO 117/84 (99) SA 08:08:20 LV 130/-12, 11 08:15:29 LV 132/-14, 5 08:15:35 LV 130/-12, 15 08:16:31 LV 128/-14, 9 08:16:38 LVp 125/-21, 1 08:16:43 AOp 128/77 (99) 08:16:48 Signed By Chapito Martinez MD On 06/30/2021 08:42:11 Chapito Martinez MD
--- NOTE | 2021-06-30 11:29 | PCM.DC ---
Discharge Instructions Diet Discharge Diet: No restrictions Activity Discharge Activity: Return to Normal Activity Dressing / Incision Call your doctor if your incision/area has: Continuous Slow Oozing and Sudden Increased Bleeding Follow Up Care Test Results: Test results from this visit will be discussed in further detail at your follow-up appointment, if applicable. Discharge Plan Admission Admit Date/Time: 06/28/21 07:52 Primary Reason for Your Visit: hypertension. Attending Provider: Herman Coles Primary Care Provider: Becki Lo Consulting Providers: Chapito Martinez Discharge Orders/Prescriptions Prescriptions: New lisinopril 20 mg Tablet 20 mg PO DAILY Qty: 30 RF: 0 Referrals / Follow Up: Elan Marley MD [STAFF PHYSICIAN] - Within 1 Month (hemorrhoids follow up ) Becki Lo MD [Primary Care Provider] - Care Physician,No Primary [NON-STAFF] - Disposition Disposition (needs filled in before D/C Order can be placed): Home, Self Care
--- NOTE | 2021-06-30 11:33 | PCM.DC.SUM ---
Providers Date of Admission: 06/28/21 Primary Care Physician: Dr. Becki Lo MD Consultations 06/28/21 08:23 Consult: Cardiology Routine Consulting Provider: Chapito Martinez Reason for Consult: Chest pain. Elevated troponins EMERGENT Consult: No Notified: Yes Date Notified: 06/28/21 Time Notified: 08:01 Method of Notification: Verbal Comments:: notified by ED Consult: Gastroenterology Routine Consulting Provider: [facility] Reason for Consult: GI bleed EMERGENT Consult: No Notified: Yes Date Notified: 06/28/21 Time Notified: 07:57 Method of Notification: Text Reason For Visit: HYPERTENSIVE URGENCY Diagnosis Discharge Diagnosis (1) Abnormal cardiac enzyme level: Status: Acute Code(s): R74.8 - Abnormal levels of other serum enzymes (2) Hypertensive emergency: Status: Acute Code(s): I16.1 - Hypertensive emergency (3) Chest pain: Status: Acute Code(s): R07.9 - Chest pain, unspecified Qualifiers: Chest pain type: unspecified Qualified Code(s): R07.9 - Chest pain, unspecified (4) Bloody stools: Status: Acute Code(s): K92.1 - Melena (5) Morbid obesity: Status: Acute Code(s): E66.01 - Morbid (severe) obesity due to excess calories (6) COVID-19: Status: Acute Code(s): U07.1 - COVID-19 Medications at Discharge Home Medications lisinopril 20 mg PO DAILY #30 tab 06/30/21 Hospital Course Operations None Procedures 2-D Echocardiogram, Cardiac catheterization, Colonoscopy and Stress test Summary of Care Provided Minutes Spent on Discharge: 32 Hospital Course: This is a 31-year-old male who presents with chest pain. Patient was noted to be hypertensive at 203/127. Patient did also have some mildly elevated troponins. Patient was brought in from a cardiac standpoint to be further evaluated. Incidentally, patient also been complaining of hematochezia which she states has been ongoing since he was 15 years old. Patient had a 2D echocardiogram that showed ejection fraction of 65% with a dilated aortic arch. He did undergo a stress test that was equivocal so he underwent a left heart catheterization today. Left heart catheterization showed normal coronaries. Those felt that his elevated troponins, though mild, or likely due to demand ischemia perhaps related with his hypertensive emergency when he presented. Patient's blood pressure remained stable and was started on lisinopril 20 mg daily. Patient will continue with that moving forward. Patient was seen in consultation by gastroenterology and he did have a colonoscopy performed on the . The colonoscopy showed bleeding external and internal hemorrhoids that were banded. Patient will follow-up with general surgery for more definitive intervention on these hemorrhoids. But no evidence of any inflammatory bowel disease. Patient does also have psoriasis which she has had for years. He has scalp as well as other patchy areas throughout his body. Patient will be established with a primary care physician in the near future and further dermatologic evaluation can be facilitated through his primary care physician. Was impressed upon the patient for him to have follow-up and maintain contact with physicians moving forward. Patient has not seen doctors in many years and many of his issues particular with his GI bleeding, things have been going on for over a decade. Physical Exam Resp normal respiratory effort, no retractions, no use of accessory muscles and clear to auscultation bilaterally Cardio regular rate, regular rhythm, S1 normal heart sound and S2 normal heart sound GI normal to inspection, nondistended, normoactive bowel sounds Weight / BMI Weight Weight: 151.7 kg Body Mass Index (BMI) 46.6 ABG / Lab / Microbiology Data Result Diagrams: 06/29/21 05:10 06/29/21 05:10 Microbiology: Microbiology 06/28/21 07:05 Nasal Secretion SARS-CoV-2 Antigen (Rapid) - Final D/C Instructions Discharge Diet: No restrictions Call your doctor if your incision/area has: Continuous Slow Oozing and Sudden Increased Bleeding Meaningful Use Info Meaningful Use Diagnoses (Choose all that apply): None applicable Discharge Plan Admission Admit Date/Time: 06/28/21 07:52 Primary Reason for Your Visit: hypertension. Attending Provider: Herman Coles Primary Care Provider: Becki Lo Consulting Providers: Chapito Martinez Discharge Orders/Prescriptions Prescriptions: New lisinopril 20 mg Tablet 20 mg PO DAILY Qty: 30 RF: 0 Referrals / Follow Up: Elan Marley MD [STAFF PHYSICIAN] - Within 1 Month (hemorrhoids follow up ) Becki Lo MD [Primary Care Provider] - Care Physician,No Primary [NON-STAFF] - Disposition Disposition (needs filled in before D/C Order can be placed): Home, Self Care Charges/Coding Visit Charges Inpatient E&M: 59305 Disch Hosp
--- NOTE | 2021-06-30 12:45 | NURSING ---
walked patient in hallway s/p bedrest. tolerated well. dressing c/d/i. no hematoma noted
== END 2021-06-30 13:39 | disposition home or self-care (01) | DRG 192 ==
LOC: ED 07:03 → PCU 08:14
PROVIDERS: Internal Medicine Gastroenterology; Emergency Provider Emergency Medicine; PCP Internal Medicine
PROC: 0DJD8ZZ Inspection of Lower Intestinal Tract, Via Natural or Artificial Opening Endoscopic (ICD-10-PCS; CPT 45378; principal; 2021-06-29 11:55)
DX: I16.1 Hypertensive emergency (principal); I70.1 Atherosclerosis of renal artery; I77.810 Thoracic aortic ectasia; E66.01 Morbid (severe) obesity due to excess calories; Z68.42 Body mass index [BMI] 45.0-49.9, adult; F17.210 Nicotine dependence, cigarettes, uncomplicated; I10 Essential (primary) hypertension; L40.9 Psoriasis, unspecified; K64.2 Third degree hemorrhoids; K64.4 Residual hemorrhoidal skin tags; Z23 Encounter for immunization; K92.1 Melena; R07.89 Other chest pain; R74.8 Abnormal levels of other serum enzymes; Z86.16 Personal history of COVID-19
CPT/HCPCS: 45398; 36415; 70450; 71045; 71275; 78452; 80048; 80053; 80061; 84443; 84484; 85025; 85379; 87426; 93005; 93017; 93306; 93458; 93975; 96365; 96366; 96375; 99152; 99153; 99218; 99285; 99406; A9500; J7040; Q9957; Q9967; 90686; A4216; C1769; C1894; C8929; G0378; J2405; J2785

== ENCOUNTER 2021-07-11 10:22 | Outpatient (CLI) | payer MEDICAID, SELFPAY ==
[2021-07-11 12:54] LABS: Magnesium 2.4 mg/dL (1.6-2.6)
[2021-07-11 13:03] LABS: Vitamin D,25 Hydroxy 9.6 ng/mL
== END 2021-07-11 23:59 | disposition short-term general hospital (02) ==
LOC: BIMLAB 10:23
PROVIDERS: PCP Internal Medicine; Referring Provider Internal Medicine; Visit Provider Internal Medicine
DX: I10 Essential (primary) hypertension (principal); F41.9 Anxiety disorder, unspecified
CPT/HCPCS: 36415; 82306; 83735

== ENCOUNTER 2023-01-23 19:03 | Emergency (ER) | payer MEDICAID, SELFPAY ==
[2023-01-23 19:05] VITALS: BP 196/129; PULSE 91; RESP 20; TEMP 36.6; O2SAT 92
--- NOTE | 2023-01-23 19:26 | EDS_ITS ---
HPI History of Present Illness Chief Complaint: Upper Extremity Injury Informant: patient Narrative Narrative: Patient present secondary to left fourth finger injury. Patient was closing a sliding window at work when his left finger got caught in the window. His ring pushed into his finger causing a small laceration. He now has swelling and is unable to remove the ring. He is right-hand dominant. He tells me he does not want to file Worker's Comp. [facility] Medical History Abnormal cardiac enzyme level COVID-19 Encounter for screening for COVID-19 Gastroenteritis due to food toxin History of left heart catheterization (LHC) (~06/30/21) HTN (hypertension) Loose, teeth Morbid obesity Psoriasis Home Medications hydrocodone-acetaminophen 5-325mg 5mg-325mg 1 tab PO Q6H PRN PRN Pain 3 days #10 TABLETS 01/23/23 [Rx Last Taken Unknown] Allergy/AdvReac Type Severity Reaction Status Date / Time No Known Allergies Allergy Verified 01/23/23 19:05 Family History Mother CVA (cerebral vascular accident) Obstructive sleep apnea Diabetes Other Hypertension Myocardial infarction Social History Smoking Status: Light Smoker (<10/day) alcohol intake: never substance use type: marijuana ROS ROS ED Constitutional Constitutional ED: Denies chills or fever(s) Eyes Eyes: Denies discharge from eye(s) ENT ENT ED: Denies discharge from eye(s), rhinorrhea or sore throat Cardiovascular Cardiovascular: Denies chest pain or palpitations Respiratory/Chest Respiratory/Chest: Denies cough or dyspnea Gastrointestinal Gastrointestinal: Denies abdominal pain, nausea or vomiting Musculoskeletal Musculoskeletal: Reports extremity pain; Denies back pain Integumentary Reports Abrasions; Denies rash Neurologic Neurologic: Denies headache(s), paresthesias or weakness Psychiatric Psychiatric: Denies anxiety or depression Allergic/Immunologic Allergic/Immunologic ED: Denies lip swelling or urticaria EXAM Physical Exam Const Vital Signs: 01/23/23 19:05 Temperature 97.9 F Temperature Source Temporal Pulse Rate 91 Respiratory Rate 20 H Blood Pressure 196/129 H Blood Pressure Mean 151 Pulse Ox 92 Oxygen Delivery Method Room Air Positive well nourished and well developed General Appearance ED: well developed HEENT Reports normocephalic and head/scalp atraumatic Eyes PERRL and EOMs intact bilaterally Neck supple Chest Wall inspection of chest normal and palpation of chest normal Resp normal respiratory effort and clear to auscultation bilaterally Cardio regular rate and regular rhythm GI Palpation: soft Extremity Extremity Narrative: Mild edema to the left fourth finger. Metal ring is in place. He has a superficial laceration across the flexor surface of the proximal phalanx. Good cap refill and sensation distally. Full range of motion of the digit Neuro oriented x3 and no sensory deficits noted Sensorium / Orientation: alert Motor Exam: strength 5/5 throughout Psych mental status grossly normal MDM MDM MDM Narrative Medical decision making narrative: Ring cutters were unsuccessful in removing the ring. Finger was wrapped with gauze and ring was eventually able to be slid over this and removed. Patient does have an area of skin avulsion on the flexor surface of his finger. Wound is soaked, wrapped with antibiotic ointment. Tetanus update is provided and patient given a dose of [place] for pain. Patient still confirms he does not want to file Worker's Comp. He will be given a short course of [place] to help with pain and was given wound care instructions. Discharge Plan Triage Chief Complaint: Upper Extremity Injury ED Provider: Cookie Summers Dx/Rx/DC Orders Clinical Impression: Hand injury, Avulsion of skin Instructions: ED Crush Injury, Hand, ED Skin Avulsion Prescriptions: New hydrocodone-acetaminophen 5-325 mg tablet 1 tab PO Q6H PRN PRN (Reason: Pain) 3 Days Qty: 10 0RF Primary Care Provider: Becki Lo Referrals: Becki Lo MD [Primary Care Provider] - 1-2 Weeks Disposition Disposition: Home, Self Care
--- NOTE | 2023-01-23 20:17 | ED.RN ---
Pt declines drug screener when she arrives. She notified patients employer and patient now states he does not want to file workmans comp.
[2023-01-23] MEDS: HYDROcodone Bitartrate/Apap 5/325 Tablet PO (20:55)
[2023-01-23] MEDS: Diphth,Pertuss(Acell),Tet Vac 0.5 ML Vial IM (20:56)
== END 2023-01-23 21:51 | disposition home or self-care (01) ==
PROVIDERS: Emergency Provider Emergency Medicine; PCP Internal Medicine; Visit Provider Emergency Medicine
DX: S61.215A Laceration without foreign body of left ring finger without damage to nail, initial encounter (principal); W25.XXXA Contact with sharp glass, initial encounter; Y93.89 Activity, other specified; Y99.0 Civilian activity done for income or pay; Z86.16 Personal history of COVID-19; Z23 Encounter for immunization
CPT/HCPCS: 90471; 90715; 99285

== ENCOUNTER 2023-02-04 00:03 | Emergency (ER) | payer MEDICAID, SELFPAY ==
[2023-02-04 00:04] VITALS: BP 190/119; PULSE 118; RESP 38; TEMP 36.4; O2SAT 97; BMI 47.5
--- NOTE | 2023-02-04 00:40 | RAD_ITS ---
INDICATION: dyspnea EXAMINATION/TECHNIQUE: X-RAY - XR Chest 2 Views COMPARISON: June 28, 2021. FINDINGS: LINES/DEVICES: None. LUNGS: Low normal lung volumes. Mild linear atelectasis in the lung bases. No consolidation, edema or effusion. No pneumothorax. MEDIASTINUM AND CARDIOVASCULAR STRUCTURES: Cardiac silhouette not enlarged. BONES AND SOFT TISSUES: Unremarkable. RAD/Chest PA and Lateral IMPRESSION: Low normal lung volumes with mild atelectasis in the lung bases. No radiographic evidence of consolidative pneumonia or florid edema.. Electronically Signed: Grayson Carolina MD at 2:07 EDT ,
[2023-02-04 00:55] VITALS: PULSE 101; RESP 22
[2023-02-04] MEDS: Albuterol 2.5 MG/3 ML VIAL.NEB. INHALATION (00:57)
[2023-02-04] MEDS: Ipratropium/Albuterol Sulfate 3 ML AMPUL.NEB INHALATION (00:57)
[2023-02-04] MEDS: MethylPREDNISolone 125 MG/2 ML Vial IV (01:00)
[2023-02-04 01:03] VITALS: O2SAT 92
--- NOTE | 2023-02-04 01:10 | EKG12_ITS ---
Test Reason : SOB Blood Pressure : / mmHG Vent. Rate : 102 BPM Atrial Rate : 102 BPM P-R Int : 176 ms QRS Dur : 102 ms QT Int : 380 ms P-R-T Axes : 067 016 117 degrees QTc Int : [address] & T wave abnormality, consider lateral ischemia Abnormal ECG Confirmed by VANIA IBRAHIM, CORDELL ([id number]), social media editor EDY REMY ([id number]) on 02/28/2023 2:13:42 PM Referred By: ANABEL Confirmed By:DEBRA CARO MD
[2023-02-04 01:22] LABS: D-Dimer Quantitative (DVT/PE) < 0.27 FEU/ug/m (0.27-0.49)
[2023-02-04 01:24] LABS: Absolute Lymphocyte Count 2.45 X10^3/uL (0.83-4.51); Basophil# 0.08 X10^3/uL; Basophil% 0.5 % (0-1); Eosinophil# 0.24 X10^3/uL; Eosinophils% 1.5 % (0-5); Hemoglobin 13.6 g/dL (13.0-16.5); Lymphocyte # 2.45 X10^3/ul (0.83-4.51); Lymphocyte % 15.5 % (19-41); Mean Corp Hgb Conc 33.2 g/dL (32-36); Mean Corpuscular Volume 81.5 fL (80-94); Mean Platelet Vol. 11.9 fl (6.2-12.0); Monocyte# 0.99 X10^3/uL; Monocyte% 6.3 % (0-10); NRBC Flagged by Analyzer 0 % (0-5); Neutrophil # 11.95 X10^3/uL (2.7-7.7); Neutrophil % 75.6 % (47-70); Platelet Count 312 K/mm3 (150-450); RBC Distribution Width SD 43.5 fl (35.1-43.9); Red Blood Count 5.03 M/mm3 (4.6-6.2); White Blood Count 15.8 K/mm3 (4.4-11.0)
[2023-02-04 01:25] LABS: Anion Gap 7 (5-15); BUN 11 mg/dL (7-18); BUN/Creat Ratio 11.9 RATIO (10-20); Calcium,Total 8.9 mg/dL (8.5-10.1); Chloride 104 mmol/L (98-107); Creatinine, Serum 0.92 mg/dL (0.70-1.30); EST Glomerular Filtration Rate 100 mL/min (>60); Est Glom Filt Rate - Afr Amer 121 mL/min (>60); Estimated Creatinine Clearance 125.35 ml/min; Glucose 98 mg/dL (74-106); Potassium 3.3 mmol/L (3.5-5.1); Sodium Level 137 mmol/L (136-145)
[2023-02-04 01:26] LABS: BNP,B-Type NATRIURETIC PEPTIDE 52.6 pg/mL (0-100)
[2023-02-04 01:29] VITALS: O2SAT 86
--- NOTE | 2023-02-04 02:31 | EDS_ITS ---
HPI History of Present Illness Chief Complaint: Shortness of Breath Informant: patient Narrative Narrative: Patient is a 32-year-old male with past medical history of morbid obesity hypertension and untreated psoriasis. He also reports smoking roughly half a pack a day. He states that over the past 3 days he has felt like his been difficult to catch his breath. He denies any fevers chills or chest pain associated with this. He denies any recent surgery travel or history of DVT/PE. However as symptoms were not improving spontaneously he has concern and presents for evaluation [facility] Medical History Abnormal cardiac enzyme level COVID-19 Encounter for screening for COVID-19 Gastroenteritis due to food toxin History of left heart catheterization (LHC) (~06/30/21) HTN (hypertension) Loose, teeth Morbid obesity Psoriasis Home Medications hydrocodone-acetaminophen 5-325mg 5mg-325mg 1 tab PO Q6H PRN PRN Pain 3 days #10 TABLETS 01/23/23 [Rx Last Taken Unknown] albuterol sulfate 90 mcg/actuation aerosol inhaler (Ventolin HFA) 1 - 2 puff inhalation Q4H PRN PRN shortness of breath or wheezing #8.5 grams 02/04/23 [Rx Last Taken Unknown] prednisone 10 mg tablet 10 mg PO DAILY #63 tabs 02/04/23 [Rx Last Taken Unknown] Allergy/AdvReac Type Severity Reaction Status Date / Time No Known Allergies Allergy Verified 02/04/23 00:04 Family History Mother CVA (cerebral vascular accident) Obstructive sleep apnea Diabetes Other Hypertension Myocardial infarction Social History Smoking Status: Light Smoker (<10/day) alcohol intake: never substance use type: marijuana ROS ROS ED Constitutional Constitutional ED: Denies chills or fever(s) ENT ENT ED: Denies rhinorrhea or sore throat Cardiovascular Cardiovascular: Denies chest pain, palpitations or racing heartbeat Respiratory/Chest Respiratory/Chest: Reports cough and dyspnea Gastrointestinal Gastrointestinal: Denies abdominal pain, diarrhea, nausea or vomiting Genitourinary Genitourinary ED: Denies dysuria Musculoskeletal Musculoskeletal: Denies myalgias Integumentary Reports rash Neurologic Neurologic: Denies headache(s) Hematologic/Lymphatic Hematologic/Lymphatic: Denies easy bleeding or easy bruising EXAM Physical Exam Const Vital Signs: 02/04/23 00:04 02/04/23 01:03 02/04/23 00:55 Temperature 97.5 F L Temperature Source Temporal Pulse Rate 118 H 101 H Respiratory Rate 38 H 22 H Respiratory Effort Short of Breath Labored Respiratory Pattern Tachypnea Normal Blood Pressure 190/119 H Blood Pressure Mean 142 Pulse Ox 97 Oxygen Delivery Method 02/04/23 01:29 02/04/23 02:46 Temperature Temperature Source Pulse Rate Respiratory Rate Respiratory Effort Respiratory Pattern Blood Pressure 140/80 H Blood Pressure Mean Pulse Ox 86 Oxygen Delivery Method Room Air Positive well nourished, well developed and obese General Appearance ED: well developed Nutritional Appearance: obese HEENT Reports moist mucous membranes HEENT Narrative: No tongue or lip swelling noted no oral lesions no airway edema or compromise Eyes PERRL and EOMs intact bilaterally Neck supple and no JVD Chest Wall palpation of chest normal Chest Narrative: No bony deformity or crepitance noted Resp Resp Narrative: Breath sounds are diminished throughout with diffuse expiratory wheeze. Patient is tachypneic. However there is no nostril flaring or retractions or accessory muscle use. Cardio regular rhythm Rate: tachycardic and other Other Details: Tachycardic rate with regular rhythm Radial and carotid pulses are equal and symmetric Extremity normal to inspection Extremity Narrative: No asymmetric edema no pitting edema negative Homans' sign bilaterally Neuro oriented x3, CN's II-XII intact bilaterally and no sensory deficits noted Sensorium / Orientation: alert Motor Exam: strength 5/5 throughout Psych mental status grossly normal Skin Skin Narrative: Patient has erythematous scaly plaque like lesions across his chest arms legs back and head most consistent with psoriasis MDM MDM MDM Narrative Medical decision making narrative: Patient presented to the ER hypertensive and does have a past medical history of this which reportedly he does not treat. However he was also tachycardic and tachypneic but his pulse ox was in the mid 90s. He denies any lung disorders such as asthma COPD or emphysema but does smoke and does not treat his psoriasis. Differential diagnosis is for pneumonia versus congestive heart failure versus pneumothorax versus COPD or asthma exacerbation. Patient blood work was obtained which shows leukocytosis at 15.8 which is nonspecific and otherwise no clinically significant findings such as acute kidney injury el ectrolyte derangement or elevation to his proBNP. He denies any recent travel surgery or history of DVT/PE but with his reported shortness of breath and tachypnea D-dimer was obtained which was normal. Chest x-ray also revealed no obvious infiltrate pneumothorax or pleural effusion. After patient was given steroids and breathing treatments his breath sounds improved and work of breathing improved as well. The patient was ambulated on room air and his pulse ox remained 90 to 93% the entire time indicating he does not have hypoxia with exertion. The patient's EKG revealed no signs of ischemia which correlates with the fact he denies any chest pain and his heart cath from approximately 18 months ago was reviewed and was described as having normal coronary vessels so my concern that this is cardiac in nature is low as well. Therefore as patient's had improvement of symptoms with treatment no hypoxia with ambulation and no overt signs of cardiovascular disease pulmonary embolus or pneumonia he be given symptomatic medications and discharged home History & Record Review Discussion w/independent historian: Patient Lab Data Attestation: I reviewed the patient's lab results. Labs: Laboratory Results - last 24 hr 02/04/23 01:00 WBC 15.8 H RBC 5.03 Hgb 13.6 Hct 41.0 MCV 81.5 MCH 27.0 MCHC 33.2 RDW Std Deviation 43.5 RDW Coeff of Angel 15.0 H Plt Count 312 MPV 11.9 Immature Gran % (Auto) 0.600 Neut % (Auto) 75.6 H Lymph % (Auto) 15.5 L [place] % (Auto) 6.3 Eos % (Auto) 1.5 Baso % (Auto) 0.5 Absolute Neuts (auto) 12.0 H Absolute Lymphs (auto) 2.45 Nucleated RBC % 0 D-Dimer Quant (PE/DVT) < 0.27 L Sodium 137 Potassium 3.3 L Chloride 104 Carbon Dioxide 26.0 Anion Gap 7 BUN 11 Creatinine 0.92 Estim Creat Clear Calc 125.35 Est GFR (MDRD) Af Amer 121 Est GFR (MDRD) Non-Af 100 BUN/Creatinine Ratio 11.9 Glucose 98 Calcium 8.9 Magnesium 2.0 B-Natriuretic Peptide 52.6 Radiography Diagnostic Testing: Clinical Impression(s) from Imaging Studies Chest X-Ray 02/04/23 00:40 IMPRESSION: Low normal lung volumes with mild atelectasis in the lung bases. No radiographic evidence of consolidative pneumonia or florid edema.. Electronically Signed: Grayson Carolina MD at 2:07 EDT Reading Location ID and State: [facility] / [place] Tel , Service support , Chest x-ray as interpreted by the emergency medicine physician reveals poor inspiration with mild atelectasis bilaterally but no acute infiltrate pneumothor ax pleural effusion or widening of the mediastinum Discharge Plan Triage Chief Complaint: Shortness of Breath ED Provider: Cj Haddad Dx/Rx/DC Orders Clinical Impression: Asthma exacerbation, Psoriasis, HTN (hypertension), Morbid obesity Instructions: ED Psoriasis, Asthma Prescriptions: New albuterol sulfate [Ventolin HFA] 90 mcg/actuation HFA aerosol inhaler 1 - 2 puff inhalation Q4H PRN PRN (Reason: shortness of breath or wheezing) Qty: 8.5 2RF prednisone 10 mg tablet 10 mg PO DAILY Qty: 63 0RF Rx Instructions: 60 mg p.o. daily ?3 days, 50 mg p.o. daily ?3 days, 40 mg p.o. daily ?3 days, 30 mg p.o. daily ?3 days, 20 mg p.o. daily ?3 days, 10 mg p.o. daily ?3 days. No Action hydrocodone-acetaminophen 5-325 mg tablet 1 tab PO Q6H PRN PRN (Reason: Pain) 3 Days Qty: 10 0RF Primary Care Provider: Becki Lo Referrals: Becki Lo MD [Primary Care Provider] - Vira Ventura MD [Non-Staff] - Activity Restrictions/Additional Instructions: Your work-up today reveals no pneumonia blood clot or obvious signs of heart damage. Your shortness of breath appears to be related to your untreated psoriasis and bronchospasm associated with this as well as worsened by smoking. Use the steroids as directed to reduce the inflammatory process in the inhaler to help prevent further bronchospasm. If you have any further concerns or worsening of symptoms please return to the ER for repeat evaluation. Otherwise follow-up with your family doctor and dermatology for further evaluation and treatment options regarding your skin condition Disposition Disposition: Home, Self Care Discharge Date/Time: 02/04/23 02:50
[2023-02-04 02:36] VITALS: O2SAT 91
[2023-02-04 02:46] VITALS: BP 140/80
== END 2023-02-04 02:50 | disposition home or self-care (01) ==
PROVIDERS: Emergency Provider Emergency Medicine; PCP Internal Medicine; Visit Provider Emergency Medicine
DX: J45.901 Unspecified asthma with (acute) exacerbation (principal); E66.01 Morbid (severe) obesity due to excess calories; L40.9 Psoriasis, unspecified; I10 Essential (primary) hypertension; F12.90 Cannabis use, unspecified, uncomplicated; F17.210 Nicotine dependence, cigarettes, uncomplicated; Z86.16 Personal history of COVID-19
CPT/HCPCS: 71046; 80048; 83735; 83880; 85025; 85379; 93005; 94640; 96374; 99283; A4216

== ENCOUNTER 2023-07-09 14:53 | Inpatient (IN) | payer MEDICAID, SELFPAY ==
[2023-07-09] VITALS (11 sets, daily range): BP systolic 160–197; BP diastolic 90–123; PULSE 90–107; RESP 17–30; TEMP 36.6–37.2; O2SAT 93–98; BMI 52.0; BMI 51.4
--- NOTE | 2023-07-09 16:18 | EDS_ITS ---
HPI <CRISTINO Alexander - Last Filed: 07/09/23 18:13> History of Present Illness Chief Complaint: Shortness of Breath Narrative Narrative: Patient is a 33-year-old male with history of morbid obesity, untreated psoriasis, uncontrolled hypertension who presents to the emergency department with complaints of chest pain, shortness of breath, lower leg edema has been ongoing and getting worse for 1 month. His friend is concerned because states that he has worsening sleep apnea, he is not taking care of himself. Patient denies any fever or chills, patient denies any nausea or vomiting. Patient states he does not have intermittent chest pressure, he feels that he is feeling with fluid. PFSH <CRISTINO Alexander - Last Filed: 07/09/23 18:13> PFSH Medical History Abnormal cardiac enzyme level COVID-19 Encounter for screening for COVID-19 Gastroenteritis due to food toxin History of left heart catheterization (LHC) (~06/30/21) HTN (hypertension) Loose, teeth Morbid obesity Psoriasis Home Medications NK 07/09/23 [History Last Taken Unknown] Allergy/AdvReac Type Severity Reaction Status Date / Time No Known Allergies Allergy Verified 07/09/23 14:56 Family History Mother CVA (cerebral vascular accident) Obstructive sleep apnea Diabetes Other Hypertension Myocardial infarction Social History Smoking Status: Light Smoker (<10/day) alcohol intake: never substance use type: marijuana ROS <CRISTINO Alexander - Last Filed: 07/09/23 18:13> ROS ED ROS Narrative Constitutional: Negative for fever, chills, weight loss, weakness Eyes: Negative for vision loss, vision change, double vision ENT: Negative for any sore throat, ear pain, congestion Cardiovascular: Negative for any chest pain, tightness, palpitations Respiratory: Negative for any sputum production, hemoptysis. Positive for cough, dyspnea, dyspnea on exertion Gastrointestinal: Negative for any abdominal pain, nausea, vomiting, diarrhea, constipation, blood in stool, blood in vomit : Negative for any urinary frequency, dysuria, retention, blood in urine Muscle skeletal: Negative for any myalgias, arthralgias, neck pain, back pain. Positive for bilateral lower leg edema Neurological: Negative for any headache, syncope, paresthesias, dizziness Skin: Negative for any rashes, lumps, itching, abrasions, lacerations Psychiatric: Negative for any depression, anxiety, stress, suicidal ideation, homicidal ideation Hematologic: Negative for any easy bruising, excessive bruising, easy bleeding Allergies: Negative for any eczema, hives, rash EXAM <CRISTINO Alexander - Last Filed: 07/09/23 18:13> Physical Exam Narrative Exam Narrative: Vital signs reviewed. HEET: Head normocephalic atraumatic, TMs clear bilaterally. Posterior pharynx is clear, moist mucous membranes. Nares clear bilaterally. Neck: Supple with no lymphadenopathy or tenderness. No signs of meningismus. Cardiac: Regular rate and rhythm no murmurs gallops or rubs, equal peripheral pulses bilaterally. Respiratory: Pulmonary examination was difficult secondary to body habitus diminished breath sounds.. No chest tenderness. Abdomen: Soft, nontender, nondistended. No abdominal bruit or pulsatile masses. No hepatosplenomegaly Extremities: Patient does have bilateral lower leg edema, negative for any cellulitis. +1 pitting edema. +2 pedal pulse. No evidence of pain. Patient states he started noticing this today., no signs of gross trauma or deformity. Active full range of motion of all extremities. Neuro: Cranial nerves II through XII intact, no focal neurological deficits. Skin: Clean dry and intact with no rash, purpura, petechiae, vesicles or pustules. Backs/flank: No CVA tenderness, no midline spinal tenderness, no deformity. Psych: Normal mood and affect. No SI, HI or acute psychosis. Const Vital Signs: 07/09/23 14:54 07/09/23 16:24 07/09/23 16:24 Temperature 97.8 F Temperature Source Temporal Pulse Rate 101 H 94 Respiratory Rate 20 H 30 H Respiratory Effort Respiratory Pattern Blood Pressure 195/123 H 188/123 H Blood Pressure Mean 147 144 Pulse Ox 98 94 94 Oxygen Delivery Method Room Air Room Air Room Air 07/09/23 16:24 07/09/23 16:24 07/09/23 16:42 Temperature Temperature Source Pulse Rate 90 Respiratory Rate 23 H 18 Respiratory Effort Short of Breath Respiratory Pattern Tachypnea Normal Blood Pressure Blood Pressure Mean Pulse Ox 94 Oxygen Delivery Method Room Air Room Air 07/09/23 17:26 07/09/23 18:11 Temperature Temperature Source Pulse Rate 100 91 Respiratory Rate 23 H Respiratory Effort Respiratory Pattern Blood Pressure 185/112 H 171/112 H Blood Pressure Mean 136 Pulse Ox 95 Oxygen Delivery Method Room Air Positive obese Nutritional Appearance: obese <Dr. Alban Jenkins MD - Last Filed: 07/09/23 20:45> Physical Exam Const Vital Signs: 07/09/23 14:54 07/09/23 16:24 07/09/23 16:24 Temperature 97.8 F Temperature Source Temporal Pulse Rate 101 H 94 Respiratory Rate 20 H 30 H Respiratory Effort Respiratory Pattern Blood Pressure 195/123 H 188/123 H Blood Pressure Mean 147 144 Pulse Ox 98 94 94 Oxygen Delivery Method Room Air Room Air Room Air 07/09/23 16:24 07/09/23 16:24 07/09/23 16:42 Temperature Temperature Source Pulse Rate 90 Respiratory Rate 23 H 18 Respiratory Effort Short of Breath Respiratory Pattern Tachypnea Normal Blood Pressure Blood Pressure Mean Pulse Ox 94 Oxygen Delivery Method Room Air Room Air 07/09/23 17:26 07/09/23 18:11 Temperature Temperature Source Pulse Rate 100 91 Respiratory Rate 23 H Respiratory Effort Respiratory Pattern Blood Pressure 185/112 H 171/112 H Blood Pressure Mean 136 Pulse Ox 95 Oxygen Delivery Method Room Air MDM <CRISTINO Alexander - Last Filed: 07/09/23 18:13> [facility] Lab Data Labs: Laboratory Results - last 24 hr 07/09/23 16:18 WBC 10.8 RBC 4.99 Hgb 13.0 Hct 39.5 L MCV 79.2 L MCH 26.1 L MCHC 32.9 RDW Std Deviation 44.0 H RDW Coeff of Angel 15.5 H Plt Count 317 MPV 11.7 Immature Gran % (Auto) 0.600 Neut % (Auto) 62.7 Lymph % (Auto) 25.8 [place] % (Auto) 7.2 Eos % (Auto) 3.0 Baso % (Auto) 0.7 Absolute Neuts (auto) 6.8 Absolute Lymphs (auto) 2.80 Nucleated RBC % 0 PT 12.7 INR 1.0 APTT 27.7 Sodium 141 Potassium 3.1 L Chloride 106 Carbon Dioxide 28.0 Anion Gap 7 BUN 10 Creatinine 0.83 Estim Creat Clear Calc 205.90 Est GFR (MDRD) Af Amer 136 Est GFR (MDRD) Non-Af 113 BUN/Creatinine Ratio 12.0 Glucose 111 H Calcium 8.8 Troponin I High Sens 1038 H* B-Natriuretic Peptide 75.3 TSH 2.34 Radiography Diagnostic Testing: Clinical Impression(s) from Imaging Studies Chest X-Ray 07/09/23 17:05 IMPRESSION: Left basilar atelectasis. Mild cardiomegaly. Electronically Signed: Laurent Boykin DO at 17:23 EST Reading Location ID and State: [facility] / [place] Tel [phone], Service support , EKG Normal sinus rhythm: Attestation: I personally reviewed and interpreted this EKG as follows: Comments: Normal sinus rhythm, rate of 96 bpm, [place] interval 182 ms, QRS duration 106 ms, there is some ST and T wave abnormalities. This is consistent with last EKG. Treatment and Re-Evaluation :: Patient appears to be in no obvious respiratory distress, patient is hypertensive, appears disheveled, unkempt. Patient presents to the emergency department for worsening chest pain, shortness of breath, bilateral lower leg edema. Differential diagnosis includes CHF, pneumonia, hypertensive urgency, renal insufficiency, diabetes. Patient will receive a full evaluation including chest x-ray, EKG. Patient will receive CBC, BMP, proBNP as well as TSH. Troponin will be ordered. Patient's CBC was unremarkable, chemistry showed a potassium of 3.1, glucose of 111, patient's troponin was elevated at 1038. TSH is 2.34. Secondary to the grossly elevated troponin, I am concerned for NSTEMI. I will reach out to cardiology, I did give the patient aspirin. Patient at rest was 89% while sleeping, patient was placed on 2 L nasal cannula. Patient will be admitted. I spoke with cardiology, they recommended Nitropaste, patient be started on heparin. Patient will likely be getting a cardiac catheterization tomorrow. I will reach out to the hospitalist for admission. <Dr. Alban Jenkins MD - Last Filed: 07/09/23 20:45> [facility] Narrative Medical decision making narrative: I have personally performed a face to face assessment of the patient and have reviewed the JAMIA Note. I performed a substantive portion of the visit including all aspects of the following. My castano findings include: History: Patient has chronic dyspnea on exertion to some degree. He has known sleep apnea but no CPAP machine. He is on no medications at all. He states his symptoms of dyspnea have worsened over the last just to 3 days. He occasionally gets some ache in his chest. He is much more short of breath with activity. He states he feels like his ankles are little swollen. He is comfortable sitting in bed and has no pain or dyspnea now. Exam: Patient has poor air motion. But it is possible it is just difficulty here due to body habitus. We will try breathing treatment to see if that will help him as he is a smoker. He does have trace swelling of his ankles. But it is equal. No cord. Medical Decision Making: My independent interpretation of his x-ray shows increased markings in the left base likely atelectasis as his symptoms or not consistent with CHF or pneumonia. Final reading is similar. Patient CBC is overall normal. Electrolytes show no marked abnormalities. BNP is normal. TSH is normal. But troponin is quite high. We will contact fisher swordfish and hospitalist. Lab Data Labs: Laboratory Results - last 24 hr 07/09/23 16:18 WBC 10.8 RBC 4.99 Hgb 13.0 Hct 39.5 L MCV 79.2 L MCH 26.1 L MCHC 32.9 RDW Std Deviation 44.0 H RDW Coeff of Angel 15.5 H Plt Count 317 MPV 11.7 Immature Gran % (Auto) 0.600 Neut % (Auto) 62.7 Lymph % (Auto) 25.8 [place] % (Auto) 7.2 Eos % (Auto) 3.0 Baso % (Auto) 0.7 Absolute Neuts (auto) 6.8 Absolute Lymphs (auto) 2.80 Nucleated RBC % 0 PT 12.7 INR 1.0 APTT 27.7 Sodium 141 Potassium 3.1 L Chloride 106 Carbon Dioxide 28.0 Anion Gap 7 BUN 10 Creatinine 0.83 Estim Creat Clear Calc 205.90 Est GFR (MDRD) Af Amer 136 Est GFR (MDRD) Non-Af 113 BUN/Creatinine Ratio 12.0 Glucose 111 H Calcium 8.8 Troponin I High Sens 1038 H* B-Natriuretic Peptide 75.3 TSH 2.34 Radiography Diagnostic Testing: Clinical Impression(s) from Imaging Studies Chest X-Ray 07/09/23 17:05 IMPRESSION: Left basilar atelectasis. Mild cardiomegaly. Electronically Signed: Laurent Boykin DO at 17:23 EST Reading Location ID and State: [facility] / [place] Tel [phone], Service support , <CRISTINO Alexander - Last Filed: 07/09/23 18:13> Critical Care Time Critical Care Time: Yes Critical care time (excluding procedures): 30-74 minutes, Discussing w/Patient &/or Family/[employer] and Discussing w/Consultants Discharge Plan Dx/Rx/DC Orders Clinical Impression: Non-compliance, Morbid obesity, Acute non-ST elevation myocardial infarction (NSTEMI), Tobacco use, HTN (hypertension) Disposition Disposition: Acute Care [facility] Discharge Date/Time: 07/09/23 18:50
[2023-07-09] MEDS: Aspirin 81 MG TAB.CHEW 324 MG PO (16:21)
[2023-07-09 16:34] LABS: Absolute Neutrophil Count 6.8 X10^3/uL (2.0-7.7); Basophil# 0.08 X10^3/uL; Basophil% 0.7 % (0-1); Eosinophil# 0.32 X10^3/uL; Hematocrit 39.5 % (40-54); Lymphocyte % 25.8 % (19-41); Mean Corp Hgb Conc 32.9 g/dL (32-36); Mean Corpuscular Hgb 26.1 pg (27.0-32.0); Mean Corpuscular Volume 79.2 fL (80-94); Mean Platelet Vol. 11.7 fl (6.2-12.0); Monocyte# 0.78 X10^3/uL; Monocyte% 7.2 % (0-10); NRBC Flagged by Analyzer 0 % (0-5); Neutrophil % 62.7 % (47-70); Platelet Count 317 K/mm3 (150-450); RBC Distribution Width CV 15.5 % (11.6-14.6); Red Blood Count 4.99 M/mm3 (4.6-6.2); White Blood Count 10.8 K/mm3 (4.4-11.0)
[2023-07-09] MEDS: Ipratropium/Albuterol Sulfate 3 ML AMPUL.NEB INHALATION (16:40)
[2023-07-09] MEDS: Albuterol 2.5 MG/3 ML VIAL.NEB. INHALATION (16:40)
[2023-07-09 16:52] LABS: BNP,B-Type NATRIURETIC PEPTIDE 75.3 pg/mL (0-100)
--- NOTE | 2023-07-09 17:05 | RAD_ITS ---
INDICATION: SOB EXAMINATION/TECHNIQUE: X-RAY - XR Chest 1 View COMPARISON: February 04, 2023 FINDINGS: LINES/DEVICES: None. LUNGS: No consolidation, edema or effusion. Mild left basilar atelectasis. No pneumothorax. MEDIASTINUM AND CARDIOVASCULAR STRUCTURES: Cardiac silhouette is slightly enlarged. Central airways and mediastinal contour are unremarkable. BONES AND SOFT TISSUES: Old left clavicular fracture. RAD/Chest 1 View (Portable) IMPRESSION: Left basilar atelectasis. Mild cardiomegaly. Electronically Signed: Laurent Boykin DO at 17:23 EST Reading Location ID and State: [facility] / [place] Tel [phone], Service support ,
[2023-07-09 17:07] LABS: Anion Gap 7 (5-15); BUN 10 mg/dL (7-18); Calcium,Total 8.8 mg/dL (8.5-10.1); Chloride 106 mmol/L (98-107); Creatinine, Serum 0.83 mg/dL (0.70-1.30); EST Glomerular Filtration Rate 113 mL/min (>60); Est Glom Filt Rate - Afr Amer 136 mL/min (>60); Glucose 111 mg/dL (74-106); Potassium 3.1 mmol/L (3.5-5.1); Sodium Level 141 mmol/L (136-145); Thyroid Stim Hormone (TSH) 2.34 uIU/mL (0.358-3.74); Troponin-I HS 1038 pg/mL (3.0-78.0)
[2023-07-09 17:51] LABS: Prothrombin Time (Protime)PT. 12.7 SECONDS (11.7-14.9)
[2023-07-09 17:52] LABS: Partial Thromboplast Time 27.7 Seconds (24.1-36.2)
[2023-07-09] MEDS: Heparin Injection (Vial) 5,000 UNIT/ML VIAL 4000 UNIT IV (18:08)
[2023-07-09] MEDS: HEPARIN/D5w 25,000 UNITS 25,000 UNITS/250 ML IV.SOLN. 10 UNITS CONT INF (18:10)
[2023-07-09] MEDS: Nitroglycerin Oint 1 INCH PACKET TD ×2 (18:11→23:16)
--- NOTE | 2023-07-09 18:31 | PCM.HP.STD ---
HPI - General General Date of Admission: 07/09/23 Date of Service: 07/09/23 Chief Complaint: Increasing SOB HPI Narrative YOSEF GRAY, is a 33 y/o male with history of morbid obesity, untreated psoriasis, uncontrolled hypertension who presents to the emergency department with complaints of chest pain, shortness of breath, lower leg edema has been ongoing and getting worse for 1 month. In ED EKG with no marked abnormalities and chest x-ray without any overt fluid overload or infiltrates however patient found to have troponin of 1038. Lab workup otherwise fairly unremarkable and BNP only 75.3. Cardiology contacted in the ED and recommended Nitropaste and patient to be started on heparin, will likely have cardiac cath tomorrow. Hospitalist contacted for admission. Patient evaluated at bedside with family member present. Reportedly patient's been having some increased feelings of being tired, some right-sided chest pain and some increased shortness of breath for the past month especially when he is trying to sleep he will wake up short of breath and gasping for air for the past 2 days he is significantly winded even walking from the car to his desk which is unusual for him and he is afraid to fall asleep because of the severe difficulty he has had with breathing, gets some right-sided chest pain during all of this that at times is worse with inspiration, today he reports he decided to come in as he noticed bilateral lower extremity swelling which is new for him. He is tired all the time and sometimes will get headaches, has also been urinating often and drinking a lot of water and his psoriasis is worsened. Also has hemorrhoids and will occasionally have blood in stool but reports no new changes or associations with this. Patient feels slightly better with nitro and interventions in ED however still feeling short of breath and he reports it specifically worsened after he fell asleep in the ED and woke back up. [facility] Medical History Abnormal cardiac enzyme level COVID-19 Encounter for screening for COVID-19 Gastroenteritis due to food toxin History of left heart catheterization (LHC) (~06/30/21) HTN (hypertension) Loose, teeth Morbid obesity Psoriasis Home Medications NK 07/09/23 [History Last Taken Unknown] Allergy/AdvReac Type Severity Reaction Status Date / Time No Known Allergies Allergy Verified 07/09/23 14:56 Family History Mother CVA (cerebral vascular accident) Obstructive sleep apnea Diabetes Other Hypertension Myocardial infarction Social History Smoking Status: Light Smoker (<10/day) alcohol intake: never substance use type: marijuana ROS ROS Narrative General: Denies fever/chills HENT: Occasional headaches, denies stuffy nose, denies sore throat EYES: Denies changes in vision Resp: Denies cough, increasing shortness of breath especially on exertion when falling asleep at bedtime Cardiac: Has been getting some intermittent right-sided chest pain GI: Denies abdominal pain, denies changes in bowel, denies nausea/vomiting, occasionally will have blood in stool which she reports is from hemorrhoids and denies any recent changes in this or new concerns : Has been urinating more frequently Extremity: Has some swelling in bilateral lower extremities which is new MSK: Denies weakness Neuro: Denies any numbness/tingling Heme: Denies any bleeding or bruising Skin: Worsening of psoriasis which is diffuse Psychiatric: No complaints voiced Vital Signs Vital Signs Vital Signs: 07/09/23 14:54 07/09/23 16:24 07/09/23 16:24 Temperature 97.8 F Temperature Source Temporal Pulse Rate 101 H 94 Respiratory Rate 20 H 30 H Respiratory Effort Respiratory Pattern Blood Pressure 195/123 H 188/123 H Blood Pressure Mean 147 144 Pulse Ox 98 94 94 Oxygen Delivery Method Room Air Room Air Room Air 07/09/23 16:24 07/09/23 16:24 07/09/23 16:42 Temperature Temperature Source Pulse Rate 90 Respiratory Rate 23 H 18 Respiratory Effort Short of Breath Respiratory Pattern Tachypnea Normal Blood Pressure Blood Pressure Mean Pulse Ox 94 Oxygen Delivery Method Room Air Room Air 07/09/23 17:26 07/09/23 18:11 Temperature Temperature Source Pulse Rate 100 91 Respiratory Rate 23 H Respiratory Effort Respiratory Pattern Blood Pressure 185/112 H 171/112 H Blood Pressure Mean 136 Pulse Ox 95 Oxygen Delivery Method Room Air Weight Weight: 173.8 kg Body Mass Index (BMI) 52.0 Physical Exam Narrative General: Alert, oriented HEENT: Atraumatic, normocephalic Eyes: Anicteric, normal conjunctiva, extraocular movements grossly intact Neck: Supple Respiratory: Diminished at the bases, possibly secondary to body habitus, does have increased respiratory effort Cardiovascular: Heart rate regular in low 100s GI: Soft, nontender, nondistended Extremities: Trace lower extremity edema with some additional nonpitting Musculoskeletal: Moving all extremities Neuro: No overt focal neurological deficits Skin: Diffuse psoriasis Psych: Cooperative but appears somewhat anxious Results Lab / Micro Data 07/09/23 16:18 07/09/23 16:18 Labs: Laboratory Results - last 24 hr 07/09/23 16:18: WBC 10.8, RBC 4.99, Hgb 13.0, Hct 39.5 L, MCV 79.2 L, MCH 26.1 L, MCHC 32.9, RDW Std Deviation 44.0 H, RDW Coeff of Angel 15.5 H, Plt Count 317, MPV 11.7, Immature Gran % (Auto) 0.600, Neut % (Auto) 62.7, Lymph % (Auto) 25.8, [place] % (Auto) 7.2, Eos % (Auto) 3.0, Baso % (Auto) 0.7, Absolute Neuts (auto) 6.8, Absolute Lymphs (auto) 2.80, Nucleated RBC % 0, PT 12.7, INR 1.0, APTT 27.7, Sodium 141, Potassium 3.1 L, Chloride 106, Carbon Dioxide 28.0, Anion Gap 7, BUN 10, Creatinine 0.83, Estim Creat Clear Calc 205.90, Est GFR (MDRD) Af Amer 136, Est GFR (MDRD) Non-Af 113, BUN/Creatinine Ratio 12.0, Glucose 111 H, Calcium 8.8, Troponin I High Sens 1038 H*, B-Natriuretic Peptide 75.3, TSH 2.34 Imaging Radiology Impression Chest X-Ray 07/09/23 17:05 IMPRESSION: Left basilar atelectasis. Mild cardiomegaly. Electronically Signed: Laurent Boykin DO at 17:23 EST , Assessment & Plan Assessment/Plan (1) Elevated troponin: (2) HTN (hypertension): (3) Morbid obesity: (4) Tobacco use: (5) Anxiety: PLAN: Plan #Chest pain and shortness of breath with elevated troponin -EKG with some nonspecific ST changes with no elevations and initial troponin found to be 1038 -Cardiology contacted and it was recommended patient started on heparin drip and Nitropaste, will continue heparin drip and Nitropaste every 6 hours -Will admit and cycle troponins -Cardiology consult -N.p.o. at midnight in the event patient has cath tomorrow -Echocardiogram -Loaded with aspirin, continue aspirin, statin -Lipid panel in the a.m., A1c in the a.m. #Hypokalemia -Will replace #HTN -BP elevated in ED, likely component of this is chronic -Patient with Nitropaste, suspect this will lower blood pressure #Morbid obesity -BMI 52 kg/m? -Complicates treatment, prognosis, outcomes -Recommend weight loss and lifestyle changes # Suspect STEVE -Will need to follow on outpatient basis -O2 nightly, was 87% when he fell asleep, suspect this is due to untreated sleep apnea and patient gives symptoms concerning for sleep apnea -May need CPAP or BiPAP nightly if O2 not sufficient # Psoriasis -Untreated, will need to follow-up with PCP or dermatology #DVT ppx: Heparin drip Jolanta Fonseca MD Charges/Coding Visit Charges Inpatient E&M: 31844 Init Hosp L2
--- OUTSIDE RECORDS SUMMARY | 2023-07-09 18:45 | XMS RPT_ITS | CCD ---
Author Name Unknown Address [address] [place] [address] Organization [facility] Care Team Providers Care Medical Logistics Specialist Name Role Phone AVE HUTCHINSON Unavailable Unavailable AVE HUTCHINSON Unavailable Unavailable Problems Problem Classification Problem Date Documented Da te Episodic/Chronic Administrative/social admission (2 sources) Encounter for pre-employment examination; Translations: [Encounter for pre-employment examination] Onset: 02-28-2017 Episodic Results Test Name Value Interpretation Reference Range Facil ity Encounters Encounter Date Encounter Type Care Provider Facility Start: 02-28-[address] [facility] Summary Purpose Family History No Family History Records Found Advance Directives No Advanced Directives Records Found Additional Source Comments (unrecognized sect ion and content) No Status Records Found INFORMATION SOURCE (unrecogn ized section and content) FOR RECORDS PERTAINING TO PATIENTS WHO ARE OR HAVE BEEN ENROLLED IN A CHEMICAL DEPENDENCY/SUBSTANCEABUSE PROGRAM, SOME INFORMATION MAY BE OMITTED. This clinical summary was aggregated from multiple sources. Caution should be exercised in using it in the provision of clinical care. This summary normalizes information from multiple sources, and as a consequence, information in this document may materially change the coding, format and clinical context of patient data. In addition, data may be omitted in some cases. CLINICAL DECISIONS SHOULD BE BASED ON THE PRIMARY CLINICAL RECORDS. [employer] [facility]. provides no warranty or guarantee of the accuracy or completeness of information in this document.
--- OUTSIDE RECORDS SUMMARY | 2023-07-09 19:03 | XMS RPT_ITS | CCD ---
Author Name Unknown Address [address] [place] [address] Organization [facility] Care Team Providers Care National Opelint Analyst Name Role Phone AVE HUTCHINSON Unavailable Unavailable VAE HUTCHINSON Unavailable Unavailable Problems Problem Classification Problem Date Documented Da te Episodic/Chronic Administrative/social admission (2 sources) Encounter for pre-employment examination; Translations: [Encounter for pre-employment examination] Onset: 02-28-2017 Episodic Results Test Name Value Interpretation Reference Range Facil ity Encounters Encounter Date Encounter Type Care Provider Facility Start: 02-28-[address] [facility] Summary Purpose Family History No Family History [...] BE BASED ON THE PRIMARY CLINICAL RECORDS. [employer] [facility]. provides no warranty or guarantee of the accuracy or completeness of information in this document.
--- NOTE | 2023-07-09 19:32 | ECHOCS_ITS ---
Reason For Study: Chest Pain Procedure This was a 2D Doppler, Color Flow transthoracic echocardiogram. The study was technically difficult. Contrast injection was performed. Exam performed portable in patient room. Left Ventricle Moderate concentric left ventricular hypertrophy. Normal LV size. The estimated ejection fraction is 35-40 %. Diastolic function is indeterminate. Right Ventricle Not well visualized. Atria Normal left atrium. Normal right atrium. Mitral Valve Mitral valve not well visualized. There is no mitral valve stenosis. Tricuspid Valve Not well visualized. Aortic Valve The aortic valve is not well visualized in the short axis view. There is no aortic stenosis. Pulmonic Valve Normal pulmonic valve. Great Vessels Aortic root size upper limits of normal. Pericardium/Pleural No pericardial effusion. Medication Diluted definity 2ml given slow IV push to enhance endocardial definition. MMode/2D Measurements & Calculations LVIDd: 4.7 cm IVSd: 1.4 cm Ao root diam: 4.0 cm LVIDs: 4.1 cm LVPWd: 1.5 cm FS: 13.1 % LAV(MOD-sp4): 54.8 ml LVAd ap4: 46.5 cm2 SV(MOD-sp4): 66.7 ml LVLd ap4: 10.4 cm EDV(MOD-sp4): 167.1 ml EDV(sp4-el): 176.3 ml LVAs ap4: 32.7 cm2 LVLs ap4: 8.7 cm ESV(MOD-sp4): 100.4 ml ESV(sp4-el): 104.6 ml EF(MOD-sp4): 39.9 % EF(sp4-el): 40.7 % SV(sp4-el): 71.7 ml LA A4 area: 18.9 cm2 RA A4 area: 16.6 cm2 Time Measurements MV dec time: 0.18 sec Doppler Measurements & Calculations MV E max filiberto: 101.3 cm/sec Lat Peak E' Filiberto: 6.1 cm/sec Med Peak E' Filiberto: 8.6 cm/sec MV A max filiberto: 76.4 cm/sec E/E' lat: 16.6 E/E' med: 11.7 MV E/A: 1.3 MV V2 max: 124.4 cm/sec MV P1/2t max filiberto: 124.7 cm/sec Ao V2 max: 138.6 cm/sec MV max P.2 mmHg MV P1/2t: 55.4 msec Ao max P.7 mmHg MV V2 mean: 68.5 cm/sec MV mean P.3 mmHg MV dec slope: 659.3 cm/sec2 MV V2 VTI: 23.6 cm MVA(P1/2t): 4.0 cm2 PA V2 max: 98.0 cm/sec ECHO/Echo Complete W/ Contrast Interpretation Summary The estimated ejection fraction is 35-40 %. Diastolic function is indeterminate. Moderate concentric left ventricular hypertrophy. The study was technically limited. The study was technically difficult. Contras t injection was performed. Ordering Physician: Jolanta Fonseca Performed By: Warren Marrufo RCS
[2023-07-09 20:00] LABS: Troponin-I HS 998 pg/mL (3.0-78.0)
--- NOTE | 2023-07-09 20:17 | PCM.HOSP.N ---
Hospitalist Note Patient admitted with elevated troponin. Blood pressure noted to be markedly elevated despite Nitropaste. Add carvedilol 12.5 mg p.o. twice daily with first dose starting now. Add lisinopril 20 mg daily starting now. As needed hydralazine also made available.
[2023-07-09] MEDS: Potassium Chloride Oral Tablet 20 MEQ 40 MEQ PO (20:23)
[2023-07-09] MEDS: hydrALAZINE 20 MG/ML Vial 10 MG IV (21:10)
[2023-07-09 22:54] LABS: Troponin-I HS 932 pg/mL (3.0-78.0)
[2023-07-09] MEDS: Atorvastatin Calcium 80 MG Tablet PO (23:15)
[2023-07-09] MEDS: Lisinopril 20 MG Tablet PO (23:15)
[2023-07-09] MEDS: Carvedilol 12.5 MG Tablet PO (23:15)
[2023-07-09] MEDS: Ondansetron 4 MG/2 ML Vial IV (23:26)
[2023-07-10] VITALS (16 sets, daily range): BP systolic 119–152; BP diastolic 65–107; PULSE 76–98; RESP 16–28; TEMP 36.4–37; O2SAT 87–96; BMI 50.4
[2023-07-10 00:50] LABS: Partial Thromboplast Time 27.6 Seconds (24.1-36.2)
[2023-07-10] MEDS: Heparin Injection (Vial) 5,000 UNIT/ML VIAL IV ×3 (02:33→17:51)
[2023-07-10] MEDS: Labetalol (Prefilled) 20 MG/4 ML 40 MG IV (04:08)
[2023-07-10 05:59] LABS: Absolute Lymphocyte Count 1.87 X10^3/uL (0.83-4.51); Absolute Neutrophil Count 7.5 X10^3/uL (2.0-7.7); Basophil# 0.06 X10^3/uL; Basophil% 0.6 % (0-1); Eosinophil# 0.14 X10^3/uL; Eosinophils% 1.4 % (0-5); Hemoglobin 12.8 g/dL (13.0-16.5); Lymphocyte # 1.87 X10^3/ul (0.83-4.51); Lymphocyte % 18.4 % (19-41); Mean Corpuscular Hgb 26.1 pg (27.0-32.0); Mean Corpuscular Volume 81.6 fL (80-94); Mean Platelet Vol. 12.1 fl (6.2-12.0); Monocyte# 0.56 X10^3/uL; Monocyte% 5.5 % (0-10); NRBC Flagged by Analyzer 0 % (0-5); Neutrophil # 7.51 X10^3/uL (2.7-7.7); Neutrophil % 73.6 % (47-70); Platelet Count 341 K/mm3 (150-450); RBC Distribution Width CV 15.9 % (11.6-14.6); RBC Distribution Width SD 46.4 fl (35.1-43.9); White Blood Count 10.2 K/mm3 (4.4-11.0)
[2023-07-10 06:31] LABS: ALB/GLOB Ratio 0.8 RATIO (0.9-2.4); AST(SGOT) 25 U/L (15-37); Alanine Aminotransfer ALT/SGPT 31 U/L (16-61); Albumin, Serum 3.2 g/dL (3.2-5.0); Alkaline Phosphatase 57 U/L (45-117); Anion Gap 5 (5-15); BUN 10 mg/dL (7-18); BUN/Creat Ratio 14.7 RATIO (10-20); Calcium,Total 8.4 mg/dL (8.5-10.1); Chloride 107 mmol/L (98-107); Cholesterol 180 mg/dL (200); Creatinine, Serum 0.68 mg/dL (0.70-1.30); EST Glomerular Filtration Rate 142 mL/min (>60); Est Glom Filt Rate - Afr Amer 172 mL/min (>60); Glucose 108 mg/dL (74-106); High Density Lipoprotein 32 mg/dL; Magnesium 2.1 mg/dL (1.6-2.6); Potassium 3.3 mmol/L (3.5-5.1); Protein, Total 7.2 g/dL (6.4-8.2); Sodium Level 140 mmol/L (136-145); Thyroid Stim Hormone (TSH) 1.01 uIU/mL (0.358-3.74); Triglycerides 316 mg/dL; Very Low Density Lipoprotein 63 mg/dL (5-40)
[2023-07-10] MEDS: Nitroglycerin Oint 1 INCH PACKET TD ×3 (07:11→17:45)
[2023-07-10] MEDS: Aspirin E.C. 81 MG Tablet PO (07:12)
[2023-07-10] MEDS: Lisinopril 20 MG Tablet PO (07:12)
[2023-07-10] MEDS: Carvedilol 25 MG Tablet PO ×2 (07:57→20:56)
--- NOTE | 2023-07-10 08:33 | PN.HOSP_ITS ---
Subjective Subjective Breathing well, though gets short of breath when lying flat. Objective Data Objective Data Vital Signs: Vital Signs Temp Pulse Resp BP Pulse Ox O2 Del Method O2 Flow Rate 36.4 C L 86 17 148/93 H 95 Nasal Cannula 2 07/10/23 04:00 07/10/23 07:11 07/10/23 07:46 07/10/23 07:11 07/10/23 04:00 07/10/23 07:46 07/10/23 07:46 Oxygen Flow Rate (L/min) 2 Oxygen Delivery Method Nasal Cannula Weight: 168.7 kg Body Mass Index (BMI) 50.4 Intake & Output: Intake and Output for Last 24 Hours 07/08/23 07/09/23 07/10/23 23:59 23:59 23:59 Intake Total 79.5 / 79.5 Balance 79.5 / 79.5 Lab / Micro Data 07/10/23 08:30 07/10/23 08:30 Labs: Laboratory Results - last 24 hr 07/09/23 16:18: WBC 10.8, RBC 4.99, Hgb 13.0, Hct 39.5 L, MCV 79.2 L, MCH 26.1 L , MCHC 32.9, RDW Std Deviation 44.0 H, RDW Coeff of Angel 15.5 H, Plt Count 317, MPV 11.7, Immature Gran % (Auto) 0.600, Neut % (Auto) 62.7, Lymph % (Auto) 25.8, [place] % (Auto) 7.2, Eos % (Auto) 3.0, Baso % (Auto) 0.7, Absolute Neuts (auto) 6.8, Absolute Lymphs (auto) 2.80, Nucleated RBC % 0, PT 12.7, INR 1.0, APTT 27.7, Sodium 141, Potassium 3.1 L, Chloride 106, Carbon Dioxide 28.0, Anion Gap 7, BUN 10, Creatinine 0.83, Estim Creat Clear Calc 205.90, Est GFR (MDRD) Af Amer 136, Est GFR (MDRD) Non-Af 113, BUN/Creatinine Ratio 12.0, Glucose 111 H, Calcium 8.8, Troponin I High Sens 1038 H*, B-Natriuretic Peptide 75.3, TSH 2.34 07/09/23 19:13: Troponin I High Sens 998 H* 07/09/23 22:15: Troponin I High Sens 932 H* 07/09/23 23:55: APTT 27.6 07/10/23 04:35: WBC 10.2, RBC 4.90, Hgb 12.8 L, Hct 40.0, MCV 81.6, MCH 26.1 L, MCHC 32.0, RDW Std Deviation 46.4 H, RDW Coeff of Angel 15.9 H, Plt Count 341, MPV 12.1 H, Immature Gran % (Auto) 0.500, Neut % (Auto) 73.6 H, Lymph % (Auto) 18.4 L, [place] % (Auto) 5.5, Eos % (Auto) 1.4, Baso % (Auto) 0.6, Absolute Neuts (auto) 7.5, Absolute Lymphs (auto) 1.87, Nucleated RBC % 0, Sodium 140, Potassium 3.3 L , Chloride 107, Carbon Dioxide 28.0, Anion Gap 5, BUN 10, Creatinine 0.68 L, Estim Creat Clear Calc 246.90, Est GFR (MDRD) Af Amer 172, Est GFR (MDRD) Non-Af 142, BUN/Creatinine Ratio 14.7, Glucose 108 H, Calcium 8.4 L, Magnesium 2.1, Total Bilirubin 0.60, AST 25, ALT 31, Alkaline Phosphatase 57, Total Protein 7.2, Albumin 3.2, Globulin 4.0, Albumin/Globulin Ratio 0.8 L, Triglycerides 316 H, Cholesterol 180, LDL Cholesterol 85, VLDL Cholesterol 63 H, HDL Cholesterol 32 L, TSH 1.01 Radiography Diagnostic Testing: Radiology Impression Chest X-Ray 07/09/23 17:05 IMPRESSION: Left basilar atelectasis. Mild cardiomegaly. Electronically Signed: Laurent Boykin DO at 17:23 EST Reading Location ID and State: [facility] / [place] Tel [phone], Service support , Physical Exam Const alert and no apparent distress Resp normal respiratory effort and no retractions Resp Narrative: bibasilar crackles. Cardio regular rate, regular rhythm, S1 normal heart sound and S2 normal heart sound GI normal to inspection, nondistended, normoactive bowel sounds and soft to palpation Extremity General Extremity: edema bilateral lower extremity Details: moderate Skin Skin Narrative: plaque psoriasis over back and extremities. Neuro Sensorium / Orientation: awake and alert Psych affect normal Assessment & Plan Assessment/Plan (1) Elevated troponin: PLAN: Plan NSTEMI * Unclear type at this point. * On heparin gtt, ASA * DW Dr. Evangelista, plan for cardiac cath on 07/11, as long as the patient can lie flat. * Echo Acute HFrEF * EF 35-40%, down from 65% from 06/28/21 * Continue carvedilol 25 BID, lisinopril 20. * Weight is up roughly 10kg since January. * Start furosemide gtt. Hypertensive urgency * improved * continue carvedilol, lisinopril Chronic conditions: * Morbid obesity-BMI 52 kg/m?-Complicates treatment, prognosis, outcomes- Recommend weight loss and lifestyle changes * Suspect STEVE-Will need to follow on outpatient basis-O2 nightly, was 87% when he fell asleep, suspect this is due to untreated sleep apnea and patient gives symptoms concerning for sleep apnea-May need CPAP or BiPAP nightly if O2 not sufficient * Psoriasis-Untreated, will need to follow-up with PCP or dermatology VTE prophylaxis: not indicated as he is anticoagulated. Charges/Coding Visit Charges Inpatient E&M: 77850 Subs Hosp L2
[2023-07-10 08:58] LABS: Hematocrit 41.1 % (40-54); Hemoglobin 13.2 g/dL (13.0-16.5); Mean Corp Hgb Conc 32.1 g/dL (32-36); Mean Corpuscular Hgb 26.2 pg (27.0-32.0); Mean Corpuscular Volume 81.7 fL (80-94); Platelet Count 319 K/mm3 (150-450); RBC Distribution Width CV 16.1 % (11.6-14.6); RBC Distribution Width SD 46.7 fl (35.1-43.9); Red Blood Count 5.03 M/mm3 (4.6-6.2); White Blood Count 14.8 K/mm3 (4.4-11.0)
[2023-07-10 09:01] LABS: Hemoglobin A1c 6.2 % (3.8-5.6)
[2023-07-10 09:36] LABS: Anion Gap 7 (5-15); BUN 10 mg/dL (7-18); BUN/Creat Ratio 12.8 RATIO (10-20); Calcium,Total 8.9 mg/dL (8.5-10.1); Chloride 107 mmol/L (98-107); Creatinine, Serum 0.78 mg/dL (0.70-1.30); EST Glomerular Filtration Rate 120 mL/min (>60); Est Glom Filt Rate - Afr Amer 146 mL/min (>60); Estimated Creatinine Clearance 215.25 ml/min; Glucose 106 mg/dL (74-106); Potassium 3.4 mmol/L (3.5-5.1); Sodium Level 142 mmol/L (136-145)
[2023-07-10] MEDS: Albuterol 2.5 MG/3 ML VIAL.NEB. INHALATION (09:45)
[2023-07-10] MEDS: Furosemide 40 MG/4 ML Vial IV (10:24)
--- NOTE | 2023-07-10 11:20 | CASEMGMT ---
RN CM Face to Face with patient for initial transition planning/care coordination assessment. RN CM introduced self and role at [facility]. Patient lying in bed, alert and oriented. Patient willing to participate in assessment and is able to answer all questions appropriately. Care providers, pharmacy, and demographics verified. Patient wishes to discharge home, denies need for home health at this time. Patient states he has no further needs or concerns at this time. CM to follow for discharge planning needs that may arise. PCP: none, PCP list provided to patient Specialists: none Preferred Pharmacy: [facility] Insurance: [facility] Community Plan Prescription Benefit: yes Living Will/HPOA: none LNOK: , aunt Living Arrangements: Patient lives with in a 2 story home with bed and bath on first floor, 2 steps to enter the home. Patient states he is independent at home. Transportation: self, friends DME/HHC: Patient has shower chair and grab bars at home. No previous HHC or SNF. Will monitor for home oxygen at discharge Disposition Plan: Patient to discharge home with family support and follow-up plans in [facility]. Brisa SPENCER, RN, CM
[2023-07-10] MEDS: Potassium Chloride Oral Tablet 20 MEQ 40 MEQ PO (12:16)
--- NOTE | 2023-07-10 14:18 | CON.PCM.CA_ITS ---
Documented by User: Mellissa LOONEY, AURE 07/10/23 14:36 Assessment & Plan Assessment/Plan (1) Acute non-ST elevation myocardial infarction (NSTEMI): (2) Uncontrolled hypertension: (3) Decreased left ventricular function: PLAN: Plan * With pts orthopnea despite IV lasix, will plan on heart cath tomorrow morning. Based on findings will decide further management * Bp is improving with medications, continue with Coreg, Lisinopril, ASA. * Did discuss lifestyle modifications with pt. * will f/u up on OP basis. HPI Consult Data Date of Consult: 07/10/23 HPI Narrative HPI Narrative: YOSEF GRAY, is a 33 M who presented to [facility] ER 07/09/23 with CP, increased SOB and swelling. He notes that this has been getting worse over the last month. He is now getting SOB just doing simple chores at home and ADLs. He noted that this past weekend he was orthopneic. Troponins were noted to be 1038/998/932. BNP was 75. BP is noted to be 180/90 in the ER. He was admitted to PCU. He was started on Heparin, NTG paste with plans of a heart cath in the morning. He is not on any medications. He was evaluated by Dr. Martinez in 06/2021 for a NSTEMI. He did have a heart cath at that time, this demonstrated normal coronary arteries with an EF of 55%. Echocardiogram demonstrated an EF of 35- 40%. Pt notes that he is still SOB this morning and is not able to lay flat. He is on O2 at 5LNC. He has never had a sleep study. He notes that he recently quite smoking but now vapes and does admit to marajuania use. Echocardiogram done yesterday demonstrated an EF of 35-40%. Moderate LVH [facility], [facility] Medical History Abnormal cardiac enzyme level COVID-19 Encounter for screening for COVID-19 Gastroenteritis due to food toxin History of left heart catheterization (LHC) (~06/30/21) HTN (hypertension) Loose, teeth Morbid obesity Psoriasis Home Medications NK 07/09/23 [History Last Taken Unknown] Allergy/AdvReac Type Severity Reaction Status Date / Time No Known Allergies Allergy Verified 07/09/23 14:56 Family History Mother CVA (cerebral vascular accident) Obstructive sleep apnea Diabetes Other Hypertension Myocardial infarction Social History Smoking Status: Light Smoker (<10/day) alcohol intake: never substance use type: marijuana ROS ROS Narrative General: Denies fever/chills HENT: Occasional headaches, denies stuffy nose, denies sore throat EYES: Denies changes in vision Resp: See HPI Cardiac: See HPI GI: Denies abdominal pain, denies changes in bowel, denies nausea/vomiting, occasionally will have blood in stool which she reports is from hemorrhoids and denies any recent changes in this or new concerns Extremity: see HPI MSK: Denies weakness Neuro: Denies any numbness/tingling Skin: Worsening of psoriasis which is diffuse Physical Exam Narrative General: Alert, oriented HEENT: Atraumatic, normocephalic Eyes: Anicteric, normal conjunctiva, extraocular movements grossly intact Neck: Supple Respiratory: Crackles bibasilarly Cardiovascular: RRR, no G/M/R GI: Soft, nontender, nondistended Extremities: _2 up to knees Musculoskeletal: Moving all extremities Neuro: No overt focal neurological deficits Skin: Diffuse psoriasis Psych: Cooperative but appears somewhat anxious Risk Stratification Risk Stratification Applicable: Yes Age >/= 65: No >/= 3 CAD Risk Factors (HTN, HLD, DM, family hx of CAD, or current smoker): Yes Aspirin Use in the Past 7 Days: No Severe Angina (>/= episodes in 24 hours): Yes EKG ST Changes >/= 0.5mm: No Positive Cardiac Marker: Yes WELL[place] Risk Stratification Score: 3 WELLINGTON % Risk: 13% Risk Charges/Coding Visit Charges Office Visits / Consults: 31663 IP Consult L3 Objective Data Vital Signs: Vital Signs Temp Pulse Resp BP Pulse Ox O2 Del Method O2 Flow Rate 97.9 F 98 28 H 131/74 H 93 Nasal Cannula 5 07/10/23 13:08 07/10/23 13:08 07/10/23 13:08 07/10/23 13:08 07/10/23 13:08 07/10/23 13:08 01/31/24 13:08 Oxygen Flow Rate (L/min) 5 Oxygen Delivery Method Nasal Cannula Weight: 371 lb 14.717 oz Body Mass Index (BMI) 50.4 Intake & Output: Intake and Output for Last 24 Hours 07/08/23 07/09/23 07/10/23 23:59 23:59 23:59 Intake Total 301.5 / 301.5 Output Total 650 / 650 Balance -348.5 / -348.5 Lab / Micro Data 07/10/23 08:30 07/10/23 08:30 Labs: Laboratory Results - last 24 hr 07/09/23 16:18: WBC 10.8, RBC 4.99, Hgb 13.0, Hct 39.5 L, MCV 79.2 L, MCH 26.1 L , MCHC 32.9, RDW Std Deviation 44.0 H, RDW Coeff of Angel 15.5 H, Plt Count 317, MPV 11.7, Immature Gran % (Auto) 0.600, Neut % (Auto) 62.7, Lymph % (Auto) 25.8, [place] % (Auto) 7.2, Eos % (Auto) 3.0, Baso % (Auto) 0.7, Absolute Neuts (auto) 6. 8, Absolute Lymphs (auto) 2.80, Nucleated RBC % 0, PT 12.7, INR 1.0, APTT 27.7, Sodium 141, Potassium 3.1 L, Chloride 106, Carbon Dioxide 28.0, Anion Gap 7, BUN 10, Creatinine 0.83, Estim Creat Clear Calc 205.90, Est GFR (MDRD) Af Amer 136, Est GFR (MDRD) Non-Af 113, BUN/Creatinine Ratio 12.0, Glucose 111 H, Calcium 8.8, Troponin I High Sens 1038 H*, B-Natriuretic Peptide 75.3, TSH 2.34 07/09/23 19:13: Troponin I High Sens 998 H* 07/09/23 22:15: Troponin I High Sens 932 H* 07/09/23 23:55: APTT 27.6 07/10/23 04:35: WBC 10.2, RBC 4.90, Hgb 12.8 L, Hct 40.0, MCV 81.6, MCH 26.1 L, MCHC 32.0, RDW Std Deviation 46.4 H, RDW Coeff of Angel 15.9 H, Plt Count 341, MPV 12.1 H, Immature Gran % (Auto) 0.500, Neut % (Auto) 73.6 H, Lymph % (Auto) 18.4 L, [place] % (Auto) 5.5, Eos % (Auto) 1.4, Baso % (Auto) 0.6, Absolute Neuts (auto) 7.5, Absolute Lymphs (auto) 1.87, Nucleated RBC % 0, Sodium 140, Potassium 3.3 L , Chloride 107, Carbon Dioxide 28.0, Anion Gap 5, BUN 10, Creatinine 0.68 L, Est im Creat Clear Calc 246.90, Est GFR (MDRD) Af Amer 172, Est GFR (MDRD) Non-Af 142, BUN/Creatinine Ratio 14.7, Glucose 108 H, Hemoglobin A1c 6.2 H, Calcium 8.4 L, Magnesium 2.1, Total Bilirubin 0.60, AST 25, ALT 31, Alkaline Phosphatase 57, Total Protein 7.2, Albumin 3.2, Globulin 4.0, Albumin/Globulin Ratio 0.8 L, Triglycerides 316 H, Cholesterol 180, LDL Cholesterol 85, VLDL Cholesterol 63 H, HDL Cholesterol 32 L, TSH 1.01 07/10/23 08:30: WBC 14.8 H, RBC 5.03, Hgb 13.2, Hct 41.1, MCV 81.7, MCH 26.2 L, MCHC 32.1, RDW Std Deviation 46.7 H, RDW Coeff of Angel 16.1 H, Plt Count 319, MPV 12.0, APTT 28.0, Sodium 142, Potassium 3.4 L, Chloride 107, Carbon Dioxide 28.0, Anion Gap 7, BUN 10, Creatinine 0.78, Estim Creat Clear Calc 215.25, Est GFR (MDRD) Af Amer 146, Est GFR (MDRD) Non-Af 120, BUN/Creatinine Ratio 12.8, Glucose 106, Calcium 8.9 Cardiology Labs/Tests 07/09/23 16:18: WBC 10.8, RBC 4.99, Hgb 13.0, Hct 39.5 L, MCV 79.2 L, MCH 26.1 L , MCHC 32.9, Plt Count 317, MPV 11.7, Immature Gran % (Auto) 0.600, Neut % (Auto) 62.7, Lymph % (Auto) 25.8, [place] % (Auto) 7.2, Eos % (Auto) 3.0, Baso % (Auto) 0.7, Absolute Neuts (auto) 6.8, Nucleated RBC % 0, PT 12.7, INR 1.0, APTT 27.7, Sodium 141, Potassium 3.1 L, Chloride 106, Carbon Dioxide 28.0, Anion Gap 7, BUN 10, Creatinine 0.83, Est GFR (MDRD) Af Amer 136, Est GFR (MDRD) Non-Af 113, BUN/Creatinine Ratio 12.0, Glucose 111 H, Calcium 8.8, B-Natriuretic Peptide 75.3 07/09/23 23:55: APTT 27.6 07/10/23 04:35: WBC 10.2, RBC 4.90, Hgb 12.8 L, Hct 40.0, MCV 81.6, MCH 26.1 L, MCHC 32.0, Plt Count 341, MPV 12.1 H, Immature Gran % (Auto) 0.500, Neut % (Auto) 73.6 H, Lymph % (Auto) 18.4 L, [place] % (Auto) 5.5, Eos % (Auto) 1.4, Baso % (Auto) 0.6, Absolute Neuts (auto) 7.5, Nucleated RBC % 0, Sodium 140, Potassium 3.3 L, Chloride 107, Carbon Dioxide 28.0, Anion Gap 5, BUN 10, Creatinine 0.68 L, Est GFR (MDRD) Af Amer 172, Est GFR (MDRD) Non-Af 142, BUN/Creatinine Ratio 14.7, Glucose 108 H, Hemoglobin A1c 6.2 H, Calcium 8.4 L, Magnesium 2.1, Total Bilirubin 0.60, Triglycerides 316 H, Cholesterol 180, LDL Cholesterol 85, VLDL Cholesterol 63 H, HDL Cholesterol 32 L 07/10/23 08:30: WBC 14.8 H, RBC 5.03, Hgb 13.2, Hct 41.1, MCV 81.7, MCH 26.2 L, MCHC 32.1, Plt Count 319, MPV 12.0, APTT 28.0, Sodium 142, Potassium 3.4 L, Chlo ride 107, Carbon Dioxide 28.0, Anion Gap 7, BUN 10, Creatinine 0.78, Est GFR (MDRD) Af Amer 146, Est GFR (MDRD) Non-Af 120, BUN/Creatinine Ratio 12.8, Glucose 106, Calcium 8.9 Rhythm: NSR Radiography Diagnostic Testing: Radiology Impression Chest X-Ray 07/09/23 17:05 IMPRESSION: Left basilar atelectasis. Mild cardiomegaly. Electronically Signed: Laurent Boykin DO at 17:23 EST Reading Location ID and State: [facility] / [place] Tel [phone], Service support , Echocardiogram 07/09/23 19:32 Interpretation Summary The estimated ejection fraction is 35-40 %. Diastolic function is indeterminate. Moderate concentric left ventricular hypertrophy. The study was technically limited. The study was technically difficult. Contrast injection was performed. Ordering Physician: Jolanta Fonseca Performed By: Warren Marrufo RCS Documented by User: Dr. Fifi Evangelista MD 07/10/23 17:50 Assessment & Plan Assessment/Plan (1) Acute non-ST elevation myocardial infarction (NSTEMI): (2) Uncontrolled hypertension: (3) Decreased left ventricular function: PLAN: Plan * With pts orthopnea despite IV lasix, will plan on heart cath tomorrow morning. Based on findings will decide further management * Bp is improving with medications, continue with Coreg, Lisinopril, ASA. * Did discuss lifestyle modifications with pt. Review of the chest x-ray showed evidence of cardiomegaly with pulm edema Being on Lasix 40 mg twice daily. Does not have any active chest pain Cardiac care plan recommendations; Will proceed with cardiac catheterization tomorrow/right radial artery approach HPI Consult Data Date of Consult: 07/10/23 [facility] Medical History Abnormal cardiac enzyme level COVID-19 Encounter for screening for COVID-19 Gastroenteritis due to food toxin History of left heart catheterization (LHC) (~06/30/21) HTN (hypertension) Loose, teeth Morbid obesity Psoriasis Home Medications NK 07/09/23 [History Last Taken Unknown] Allergy/AdvReac Type Severity Reaction Status Date / Time No Known Allergies Allergy Verified 07/09/23 14:56 Family History Mother CVA (cerebral vascular accident) Obstructive sleep apnea Diabetes Other Hypertension Myocardial infarction Social History Smoking Status: Light Smoker (<10/day) alcohol intake: never substance use type: marijuana Risk Stratification Age >/= 65: No WELL[place] Risk Stratification Score: 3 [place] % Risk: 13% Risk Lab / Micro Data 07/10/23 08:30 07/10/23 08:30
[2023-07-10] MEDS: HEPARIN/D5w 25,000 UNITS 25,000 UNITS/250 ML IV.SOLN. 14 UNITS CONT INF (14:30)
--- NOTE | 2023-07-10 14:40 | RAD_ITS ---
STUDY: X-RAY CHEST REASON FOR EXAM: Male, 33 years old. sob, inc o2 TECHNIQUE: Single AP portable view of the chest. COMPARISON: Comparison is made with prior study dated July 09, 2023. FINDINGS: EKG electrodes are seen. Minimal increased markings at the lung bases slightly more prominent on the left side suggestive of bibasilar atelectasis. There has been improvement as compared to prior study. There is no demonstrated pleural abnormality. Normal size heart. Normal mediastinum and danilo. Normal visualized pulmonary arteries. Normal visualized aortic arch and descending thoracic aorta. Normal visualized thoracic spine. Normal visualized ribs, clavicles, and shoulders. There is no demonstrated abnormality of the visualized soft tissue structures of the upper abdomen. RAD/Chest 1 View (Portable) IMPRESSION: Minimal residual increased markings at the lung bases slightly more prominent on the left side although there has been improvement as compared to prior study. Electronically Signed: Zak Segovia MD at 14:51 EST ,
[2023-07-10 17:03] LABS: Partial Thromboplast Time 29.8 Seconds (24.1-36.2)
[2023-07-10] MEDS: Furosemide 500 MG in Empty Viaflex 50 mL 1 EACH CONT INF (17:44)
[2023-07-10] MEDS: Atorvastatin Calcium 80 MG Tablet PO (20:56)
[2023-07-11] VITALS (14 sets, daily range): BP systolic 110–144; BP diastolic 60–87; PULSE 68–90; RESP 14–18; TEMP 35.8–36.8; O2SAT 92–95; BMI 50.1
[2023-07-11] MEDS: Nitroglycerin Oint 1 INCH PACKET TD ×2 (00:07→06:29)
[2023-07-11 00:42] LABS: Partial Thromboplast Time 33.3 Seconds (24.1-36.2)
[2023-07-11] MEDS: Heparin Injection (Vial) 5,000 UNIT/ML VIAL IV (01:03)
[2023-07-11] MEDS: Carvedilol 25 MG Tablet PO ×2 (06:30→20:10)
[2023-07-11] MEDS: Lisinopril 20 MG Tablet PO (06:30)
[2023-07-11] MEDS: Aspirin E.C. 81 MG Tablet PO (06:30)
--- NOTE | 2023-07-11 07:30 | NURSING ---
Heparin gtt running at 18ml/hr
[2023-07-11 07:40] LABS: Absolute Lymphocyte Count 1.87 X10^3/uL (0.83-4.51); Absolute Neutrophil Count 10.4 X10^3/uL (2.0-7.7); Basophil# 0.07 X10^3/uL; Basophil% 0.5 % (0-1); Eosinophils% 1.5 % (0-5); Hemoglobin 12.7 g/dL (13.0-16.5); Lymphocyte # 1.87 X10^3/ul (0.83-4.51); Lymphocyte % 13.9 % (19-41); Mean Corp Hgb Conc 31.8 g/dL (32-36); Mean Corpuscular Hgb 26.3 pg (27.0-32.0); Mean Corpuscular Volume 82.8 fL (80-94); Mean Platelet Vol. 11.5 fl (6.2-12.0); Monocyte# 0.89 X10^3/uL; Monocyte% 6.6 % (0-10); NRBC Flagged by Analyzer 0 % (0-5); Neutrophil # 10.37 X10^3/uL (2.7-7.7); Neutrophil % 77.2 % (47-70); Platelet Count 308 K/mm3 (150-450); RBC Distribution Width CV 16.2 % (11.6-14.6); RBC Distribution Width SD 48.4 fl (35.1-43.9); Red Blood Count 4.83 M/mm3 (4.6-6.2); White Blood Count 13.4 K/mm3 (4.4-11.0)
[2023-07-11 07:51] LABS: Partial Thromboplast Time 31.7 Seconds (24.1-36.2)
[2023-07-11] MEDS: 0.9% Saline Lock 10 ML Syringe IV ×2 (08:04→14:38)
[2023-07-11 08:09] LABS: Anion Gap 3 (5-15); BUN 15 mg/dL (7-18); BUN/Creat Ratio 15.7 RATIO (10-20); Calcium,Total 8.5 mg/dL (8.5-10.1); Chloride 107 mmol/L (98-107); Creatinine, Serum 0.95 mg/dL (0.70-1.30); EST Glomerular Filtration Rate 96 mL/min (>60); Est Glom Filt Rate - Afr Amer 116 mL/min (>60); Estimated Creatinine Clearance 176.17 ml/min; Glucose 101 mg/dL (74-106); Potassium 3.3 mmol/L (3.5-5.1); Sodium Level 141 mmol/L (136-145)
--- NOTE | 2023-07-11 08:09 | NURSING ---
Heparin gtt and lasix gtt stopped per cardiology order at 0804 in preparation for cardiac catheterization today.
--- NOTE | 2023-07-11 08:54 | PN.HOSP_ITS ---
Subjective Subjective Breathing well. Objective Data Objective Data Vital Signs: Vital Signs Temp Pulse Resp BP Pulse Ox O2 Del Method O2 Flow Rate 36.8 C 90 14 135/74 H 95 Nasal Cannula 5 07/11/23 06:26 07/11/23 06:26 07/11/23 06:26 07/11/23 06:26 07/11/23 06:26 07/11/23 08:10 07/11/23 08:10 Oxygen Flow Rate (L/min) 5 Oxygen Delivery Method Nasal Cannula Weight: 167.8 kg Body Mass Index (BMI) 50.1 Intake & Output: Intake and Output for Last 24 Hours 07/09/23 07/10/23 07/11/23 23:59 23:59 23:59 Intake Total 912.77 / 912.77 217.43 / 217.43 Output Total 1700 / 1700 1000 / 1000 Balance -787.23 / -787.23 -782.57 / -782.57 Lab / Micro Data 07/11/23 07:10 07/11/23 07:10 Labs: Laboratory Results - last 24 hr 07/10/23 04:35: Hemoglobin A1c 6.2 H 07/10/23 08:30: WBC 14.8 H, RBC 5.03, Hgb 13.2, Hct 41.1, MCV 81.7, MCH 26.2 L, MCHC 32.1, RDW Std Deviation 46.7 H, RDW Coeff of Angel 16.1 H, Plt Count 319, MPV 12.0, APTT 28.0, Sodium 142, Potassium 3.4 L, Chloride 107, Carbon Dioxide 28.0, Anion Gap 7, BUN 10, Creatinine 0.78, Estim Creat Clear Calc 215.25, Est GFR (MDRD) Af Amer 146, Est GFR (MDRD) Non-Af 120, BUN/Creatinine Ratio 12.8, Glucose 106, Calcium 8.9 07/10/23 16:36: APTT 29.8 07/10/23 23:59: APTT 33.3 07/11/23 07:10: WBC 13.4 H, RBC 4.83, Hgb 12.7 L, Hct 40.0, MCV 82.8, MCH 26.3 L , MCHC 31.8 L, RDW Std Deviation 48.4 H, RDW Coeff of Angel 16.2 H, Plt Count 308, MPV 11.5, Immature Gran % (Auto) 0.300, Neut % (Auto) 77.2 H, Lymph % (Auto) 13.9 L, [place] % (Auto) 6.6, Eos % (Auto) 1.5, Baso % (Auto) 0.5, Absolute Neuts (auto) 10.4 H, Absolute Lymphs (auto) 1.87, Nucleated RBC % 0, APTT 31.7, Sodium 141, Potassium 3.3 L, Chloride 107, Carbon Dioxide 31.0, Anion Gap 3 L, BUN 15, Creatinine 0.95, Estim Creat Clear Calc 176.17, Est GFR (MDRD) Af Amer 116, Est GFR (MDRD) Non-Af 96, BUN/Creatinine Ratio 15.7, Glucose 101, Calcium 8.5 Radiography Diagnostic Testing: Radiology Impression Echocardiogram 07/09/23 19:32 Interpretation Summary The estimated ejection fraction is 35-40 %. Diastolic function is indeterminate. Moderate concentric left ventricular hypertrophy. The study was technically limited. The study was technically difficult. Contrast injection was performed. Ordering Physician: Jolanta Fonseca Performed By: Warren Marrufo RCS Chest X-Ray 07/10/23 14:40 IMPRESSION: Minimal residual increased markings at the lung bases slightly more prominent on the left side although there has been improvement as compared to prior study. Electronically Signed: Zak Segovia MD at 14:51 EST , Physical Exam Const alert and no apparent distress Resp normal respiratory effort, no retractions, no use of accessory muscles and clear to auscultation bilaterally Cardio regular rate, regular rhythm, S1 normal heart sound and S2 normal heart sound GI normal to inspection, nondistended, normoactive bowel sounds and soft to palpation Neuro Sensorium / Orientation: awake Assessment & Plan Assessment/Plan (1) Elevated troponin: PLAN: Plan NSTEMI * Unclear type at this point. * On heparin gtt, ASA * DW Dr. Evangelista, plan for cardiac cath on 07/11, as long as the patient can lie flat. * LHC showed normal coronaries. Acute HFrEF * EF 35-40%, down from 65% from 06/28/21 * Continue carvedilol 25 BID, lisinopril 20. * Weight is up roughly 10kg since January. * Change furosemide to 40 IV TID. Hypertensive urgency * improved * continue carvedilol, lisinopri Hypokalemia * 2/2 diuresis * replace * monitor Chronic conditions: * Morbid obesity-BMI 52 kg/m?-Complicates treatment, prognosis, outcomes- Recommend weight loss and lifestyle changes * Suspect STEVE-Will need to follow on outpatient basis-O2 nightly, was 87% when he fell asleep, suspect this is due to untreated sleep apnea and patient gives symptoms concerning for sleep apnea-May need CPAP or BiPAP nightly if O2 not sufficient * Psoriasis-Untreated, will need to follow-up with PCP or dermatology VTE prophylaxis: not indicated as he is anticoagulated. Charges/Coding Visit Charges Inpatient E&M: 27852 Subs Hosp L2
[2023-07-11] MEDS: Potassium Chloride Oral Tablet 20 MEQ 40 MEQ PO ×2 (09:03→17:21)
--- NOTE | 2023-07-11 09:53 | PN.CARD_ITS ---
Documented by User: AURE Osuna 07/11/23 10:20 Subjective Subjective Patient seen and examined today. He states that he was able to lay flat last night without feeling short of breath. He is still requiring 5 L of oxygen. He has not had any chest pain. He does feel that his lower extremity edema has improved. Objective Data Vital Signs: Vital Signs Temp Pulse Resp BP Pulse Ox O2 Del Method O2 Flow Rate 98.2 F 90 14 135/74 H 95 Nasal Cannula 5 07/11/23 06:26 07/11/23 06:26 07/11/23 06:26 07/11/23 06:26 07/11/23 06:26 07/11/23 08:10 07/11/23 08:10 Oxygen Flow Rate (L/min) 5 Oxygen Delivery Method Nasal Cannula Weight: 369 lb 14.97 oz Body Mass Index (BMI) 50.1 Intake & Output: Intake and Output for Last 24 Hours 07/09/23 07/10/23 07/11/23 23:59 23:59 23:59 Intake Total 912.77 / 912.77 217.43 / 217.43 Output Total 1700 / 1700 1000 / 1000 Balance -787.23 / -787.23 -782.57 / -782.57 Lab / Micro Data 07/11/23 07:10 07/11/23 07:10 Labs: Laboratory Results - last 24 hr 07/10/23 16:36: APTT 29.8 07/10/23 23:59: APTT 33.3 07/11/23 07:10: WBC 13.4 H, RBC 4.83, Hgb 12.7 L, Hct 40.0, MCV 82.8, MCH 26.3 L , MCHC 31.8 L, RDW Std Deviation 48.4 H, RDW Coeff of Angel 16.2 H, Plt Count 308, MPV 11.5, Immature Gran % (Auto) 0.300, Neut % (Auto) 77.2 H, Lymph % (Auto) 13.9 L, [place] % (Auto) 6.6, Eos % (Auto) 1.5, Baso % (Auto) 0.5, Absolute Neuts (auto) 10.4 H, Absolute Lymphs (auto) 1.87, Nucleated RBC % 0, APTT 31.7, Sodium 141, Potassium 3.3 L, Chloride 107, Carbon Dioxide 31.0, Anion Gap 3 L, BUN 15, Creatinine 0.95, Estim Creat Clear Calc 176.17, Est GFR (MDRD) Af Amer 116, Est GFR (MDRD) Non-Af 96, BUN/Creatinine Ratio 15.7, Glucose 101, Calcium 8.5 Cardiology Labs/Tests 07/10/23 16:36: APTT 29.8 07/10/23 23:59: APTT 33.3 07/11/23 07:10: WBC 13.4 H, RBC 4.83, Hgb 12.7 L, Hct 40.0, MCV 82.8, MCH 26.3 L , MCHC 31.8 L, Plt Count 308, MPV 11.5, Immature Gran % (Auto) 0.300, Neut % (Auto) 77.2 H, Lymph % (Auto) 13.9 L, [place] % (Auto) 6.6, Eos % (Auto) 1.5, Baso % (Auto) 0.5, Absolute Neuts (auto) 10.4 H, Nucleated RBC % 0, APTT 31.7, Sodium 141, Potassium 3.3 L, Chloride 107, Carbon Dioxide 31.0, Anion Gap 3 L, BUN 15, Creatinine 0.95, Est GFR (MDRD) Af Amer 116, Est GFR (MDRD) Non-Af 96, BUN/Creatinine Ratio 15.7, Glucose 101, Calcium 8.5 Rhythm: NSR Radiography Diagnostic Testing: Radiology Impression Echocardiogram 07/09/23 19:32 Interpretation Summary The estimated ejection fraction is 35-40 %. Diastolic function is indeterminate. Moderate concentric left ventricular hypertrophy. The study was technically limited. The study was technically difficult. Contrast injection was performed. Ordering Physician: Jolanta Fonseca Performed By: Warren Marrufo RCS Chest X-Ray 07/10/23 14:40 IMPRESSION: Minimal residual increased markings at the lung bases slightly more prominent on the left side although there has been improvement as compared to prior study. Electronically Signed: Zak Segovia MD at 14:51 EST , Physical Exam Narrative General: Alert, oriented HEENT: Atraumatic, normocephalic Eyes: Anicteric, normal conjunctiva, extraocular movements grossly intact Neck: Supple Respiratory: diminished Cardiovascular: RRR, no G/M/R GI: Soft, nontender, nondistended Extremities: +1 edema Musculoskeletal: Moving all extremities Neuro: No overt focal neurological deficits Skin: Diffuse psoriasis Psych: Cooperative but appears somewhat anxious Assessment & Plan Assessment/Plan (1) Acute non-ST elevation myocardial infarction (NSTEMI): (2) Uncontrolled hypertension: (3) Decreased left ventricular function: PLAN: Plan * Orthopnea has improved on IV lasix. Will proceed with heart cath this morning. He was noted to be slightly hypokalemic, this has been replaced. Based on findings will decide further management * Bp is improving with medications, continue with Coreg 25 mg BID, Lisinopril 20 mg daily, ASA. * With his decreased LV function, after heart cath would consider entresto, spirolactone and an SGL2. * Did discuss lifestyle modifications with pt. Charges/Coding Visit Charges Inpatient E&M: 68312 Subs Hosp L3 Documented by User: Dr. Fifi Evangelista MD 07/11/23 16:02 Lab / Micro Data 07/11/23 07:10 07/11/23 07:10 Assessment & Plan Assessment/Plan (1) Acute non-ST elevation myocardial infarction (NSTEMI): (2) Uncontrolled hypertension: (3) Decreased left ventricular function: PLAN: Plan * Orthopnea has improved on IV lasix. Will proceed with heart cath this morning. He was noted to be slightly hypokalemic, this has been replaced. Based on findings will decide further management * Bp is improving with medications, continue with Coreg 25 mg BID, Lisinopril 20 mg daily, ASA. * With his decreased LV function, after heart cath would consider entresto, spirolactone and an SGL2. * Did discuss lifestyle modifications with pt. This patient underwent cardiac catheterization today/right radial artery approach.No significant coronary atherosclerosis noted The LV function moderate EF around 40-45% with mild global LV hypokinesia Conclusion recommendation Will maximize medical therapy and also advise lifestyle change. To follow-up with the cardiology group here at [facility]
--- NOTE | 2023-07-11 09:58 | NURSING ---
Report called to Olivia in lab instructor. Patient with 2 working PIVs that are saline locked.
--- NOTE | 2023-07-11 10:21 | CASEMGMT ---
Insurance review for hospitals In-network with?[facility] Community Plan insurance if transfer is recommended is as follows:?[facility], [place], [facility], [facility], [facility], [facility], [facility], [facility]), and . Michelle Jones, Discharge Planning Asst.
--- NOTE | 2023-07-11 11:35 | PCM.OP.PRO ---
Procedure Report Date of Procedure: 07/11/23 Left heart catheterization; 1. Moderate sedation. 2. Selective left coronary angiography 3. Selective right coronary angiography. 4. Measurement of LVEDP. 5. Left ventriculogram 6. Measurement of pullback pressure 7. Placement of TR band to close the right radial artery arteriotomy site. Consent; Risk and benefit of procedure explained in detail to the patient elected to proceed informed consent obtained. Preprocedure diagnosis; 33-year-old patient who presented with symptoms of shortness of breath And has evidence of non-ST elevation WA with significant elevation of cardiac markers He was also in pulmonary edema requiring IV Lasix. His echocardiographic evaluation showed EF in the range of around 40-45%. Based on his clinical presentation with prior history of CAD he is a coronary angiography by Dr. Martinez in 2021 was normal. And his LV function was preserved at that time. Diagnostic catheter used 1. 5 [place] JL 4 2. 5 [place] JR4 3. 5 [place] pigtail catheter. Procedure in detail; Patient brought to the [facility] in fasting state heparin and nitroglycerin were discontinued. Renal function was normal Access obtained from the right radial artery with a 6 [place] sheath [employer] placed in the right radial artery Then we will proceed with 5 [place] JL 4 advancing aorta cannulated the left main Multiple views of the left coronary system obtained Following this the catheter exchanged for 5 [place] JR4 Advanced sending aorta cannulated the RCA Multiple views of the RCA were obtained. Following this a 5 [place] pigtail catheter obtained And placed in the mid left ventricle LV ventriculogram obtained 30 degree RAINEY projection Following this all angiographic views were studied. Following this all catheter removed and hemostasis maintained with placement of TR band to close the right radial artery arteriotomy site Hemodynamics; 1. Moderate LV systolic dysfunction Ejection fraction the range of around 40-45% 2. LVEDP measuring 32 mmHg 3. No systolic gradient across aortic valve. Coronary angiography; 1. Left main is normal angiographically, trifurcating into LAD, ramus intermedius and the left circumflex 2. Left anterior descending is large reach all the way to the apex Moderate to large sized Pharris diagonal branch Abundant septal branches noted No significant atherosclerosis of left anterior descending artery. 3. The ramus intermedius is moderate to large size vessel normal angiographically 4. The left circumflex is normal 5. RCA is large dominant and normal angiographically Conclusion recommendations; 1. This patient presented with non-ST elevation WA had reduced LV function and had significant elevation of high sensitive troponin with a clinical diagnosis of non-ST elevation WA He also had a heart failure with chest x-ray showed evidence of pulm edema responded very well to the diuretic therapy Recommendation would be guideline directed medical therapy in the form of Entresto carvedilol Aldactone, Farxiga and also to continue on dual antiplatelet therapy with Plavix and aspirin 2. Patient advised lifestyle change with weight reduction, and compliance with medication patient renal function is normal with normal creatinine 3. To follow-up with the cardiac team at [facility] And to set up for cardiac rehab as an outpatient. There is no complication in the [facility] Fifi Evangelista MD,FACC,[facility] [place]
[2023-07-11] MEDS: Furosemide 40 MG/4 ML Vial IV ×2 (14:38→20:09)
[2023-07-11] MEDS: Atorvastatin Calcium 80 MG Tablet PO (20:10)
[2023-07-11] MEDS: Enoxaparin 40 MG/0.4 ML Syringe SC (20:10)
[2023-07-12 03:27] VITALS: BMI 50.0
[2023-07-12 03:33] VITALS: BP 140/70; PULSE 75; RESP 18; TEMP 36.1; O2SAT 94
[2023-07-12] MEDS: Furosemide 40 MG/4 ML Vial IV ×3 (05:58→20:29)
[2023-07-12 07:43] LABS: Absolute Lymphocyte Count 1.89 X10^3/uL (0.83-4.51); Absolute Neutrophil Count 10.8 X10^3/uL (2.0-7.7); Basophil# 0.05 X10^3/uL; Basophil% 0.4 % (0-1); Eosinophil# 0.27 X10^3/uL; Eosinophils% 1.9 % (0-5); Hematocrit 42.3 % (40-54); Hemoglobin 13.5 g/dL (13.0-16.5); Lymphocyte # 1.89 X10^3/ul (0.83-4.51); Lymphocyte % 13.4 % (19-41); Mean Corp Hgb Conc 31.9 g/dL (32-36); Mean Corpuscular Hgb 26.1 pg (27.0-32.0); Mean Corpuscular Volume 81.8 fL (80-94); Mean Platelet Vol. 11.8 fl (6.2-12.0); Monocyte# 0.94 X10^3/uL; Monocyte% 6.7 % (0-10); NRBC Flagged by Analyzer 0 % (0-5); Neutrophil # 10.84 X10^3/uL (2.7-7.7); Neutrophil % 77.1 % (47-70); Platelet Count 336 K/mm3 (150-450); RBC Distribution Width CV 16.1 % (11.6-14.6); RBC Distribution Width SD 47.3 fl (35.1-43.9); Red Blood Count 5.17 M/mm3 (4.6-6.2); White Blood Count 14.1 K/mm3 (4.4-11.0)
[2023-07-12 07:50] VITALS: O2SAT 92
--- NOTE | 2023-07-12 08:05 | PCM.PN.CARD ---
Documented by User: Mellissa LOONEY, AURE 07/12/23 14:42 Subjective Subjective Pt seen and examined. Feels better, is less SOB. Edema has improved. Objective Data Vital Signs: Vital Signs Temp Pulse Resp BP Pulse Ox O2 Del Method O2 Flow Rate 97 F L 75 18 140/70 H 92 Nasal Cannula 3 07/12/23 03:33 07/12/23 03:33 07/12/23 03:33 07/12/23 03:33 07/12/23 07:50 07/12/23 07:51 07/12/23 07:51 Oxygen Flow Rate (L/min) 3 Oxygen Delivery Method Nasal Cannula Weight: 368 lb 13.334 oz Body Mass Index (BMI) 50.0 Intake & Output: Intake and Output for Last 24 Hours 07/10/23 07/11/23 07/12/23 23:59 23:59 23:59 Intake Total 912.77 / 912.77 1267.43 / 1267.43 Output Total 1700 / 1700 1675 / 2675 1300 / 1300 Balance -787.23 / -787.23 -407.57 / -1407.57 -1300 / -1300 Lab / Micro Data 07/12/23 07:05 07/12/23 07:05 Labs: Laboratory Results - last 24 hr 07/11/23 07:10: Sodium 141, Potassium 3.3 L, Chloride 107, Carbon Dioxide 31.0, Anion Gap 3 L, BUN 15, Creatinine 0.95, Estim Creat Clear Calc 176.17, Est GFR (MDRD) Af Amer 116, Est GFR (MDRD) Non-Af 96, BUN/Creatinine Ratio 15.7, Glucose 101, Calcium 8.5 07/12/23 07:05: WBC 14.1 H, RBC 5.17, Hgb 13.5, Hct 42.3, MCV 81.8, MCH 26.1 L, MCHC 31.9 L, RDW Std Deviation 47.3 H, RDW Coeff of Angel 16.1 H, Plt Count 336, MPV 11.8, Immature Gran % (Auto) 0.500, Neut % (Auto) 77.1 H, Lymph % (Auto) 13.4 L, [place] % (Auto) 6.7, Eos % (Auto) 1.9, Baso % (Auto) 0.4, Absolute Neuts (auto) 10.8 H, Absolute Lymphs (auto) 1.89, Nucleated RBC % 0 Cardiology Labs/Tests 07/11/23 07:10: Sodium 141, Potassium 3.3 L, Chloride 107, Carbon Dioxide 31.0, Anion Gap 3 L, BUN 15, Creatinine 0.95, Est GFR (MDRD) Af Amer 116, Est GFR (MDRD) Non-Af 96, BUN/Creatinine Ratio 15.7, Glucose 101, Calcium 8.5 07/12/23 07:05: WBC 14.1 H, RBC 5.17, Hgb 13.5, Hct 42.3, MCV 81.8, MCH 26.1 L, MCHC 31.9 L, Plt Count 336, MPV 11.8, Immature Gran % (Auto) 0.500, Neut % (Auto) 77.1 H, Lymph % (Auto) 13.4 L, [place] % (Auto) 6.7, Eos % (Auto) 1.9, Baso % (Auto) 0.4, Absolute Neuts (auto) 10.8 H, Nucleated RBC % 0 Rhythm: NSR Physical Exam Narrative General: Alert, oriented HEENT: Atraumatic, normocephalic Eyes: Anicteric, normal conjunctiva, extraocular movements grossly intact Neck: Supple Respiratory: diminished Cardiovascular: RRR, no G/M/R GI: Soft, nontender, nondistended Extremities: +1 edema Musculoskeletal: Moving all extremities Neuro: No overt focal neurological deficits Skin: Diffuse psoriasis Psych: Cooperative but appears somewhat anxious Assessment & Plan Assessment/Plan (1) Acute non-ST elevation myocardial infarction (NSTEMI): (2) Uncontrolled hypertension: (3) Decreased left ventricular function: PLAN: Plan Heart cath demonstrated normal coronary arteries. Bp is improving with medications, continue with Coreg 25 mg BID With his decreased LV function, Recommend switching lisinopril to entresto, Consider starting spirolactone and an SGL2. This could be done on OP basis. Did discuss lifestyle modifications with pt. Will sign off today, Pt is hemodynamically stable, if pt needs additional input, please call. Will see pt in the OP setting. Charges/Coding Visit Charges Inpatient E&M: 30440 Subs Hosp L3 Documented by User: Dr. Fifi Evangelista MD 07/12/23 17:21 Lab / Micro Data 07/12/23 07:05 07/12/23 07:05 Assessment & Plan Assessment/Plan (1) Acute non-ST elevation myocardial infarction (NSTEMI): (2) Uncontrolled hypertension: (3) Decreased left ventricular function: PLAN: Plan Heart cath demonstrated normal coronary arteries. Bp is improving with medications, continue with Coreg 25 mg BID With his decreased LV function, Recommend switching lisinopril to entresto, Consider starting spirolactone and an SGL2. This could be done on OP basis. Did discuss lifestyle modifications with pt. Will sign off today, Pt is hemodynamically stable, if pt needs additional input, please call. Will see pt in the OP setting. Patient to continue guideline directed medical therapy and follow-up with the cardiology team as an outpatient Also patient will be scheduled for cardiac rehab program here at [facility].
[2023-07-12 08:18] LABS: Anion Gap 3 (5-15); BUN 14 mg/dL (7-18); BUN/Creat Ratio 16.7 RATIO (10-20); Chloride 105 mmol/L (98-107); Creatinine, Serum 0.84 mg/dL (0.70-1.30); EST Glomerular Filtration Rate 112 mL/min (>60); Est Glom Filt Rate - Afr Amer 135 mL/min (>60); Estimated Creatinine Clearance 198.89 ml/min; Glucose 98 mg/dL (74-106); Potassium 3.4 mmol/L (3.5-5.1); Sodium Level 138 mmol/L (136-145)
--- NOTE | 2023-07-12 08:34 | PN.HOSP_ITS ---
Subjective Subjective Feeling better. Decreased LE edema. Objective Data Objective Data Vital Signs: Vital Signs Temp Pulse Resp BP Pulse Ox O2 Del Method O2 Flow Rate 36.1 C L 75 18 140/70 H 92 Nasal Cannula 3 07/12/23 03:33 07/12/23 03:33 07/12/23 03:33 07/12/23 03:33 07/12/23 07:50 07/12/23 07:51 07/12/23 07:51 Oxygen Flow Rate (L/min) 3 Oxygen Delivery Method Nasal Cannula Weight: 167.3 kg Body Mass Index (BMI) 50.0 Intake & Output: Intake and Output for Last 24 Hours 07/10/23 07/11/23 07/12/23 23:59 23:59 23:59 Intake Total 912.77 / 912.77 1267.43 / 1267.43 Output Total 1700 / 1700 1675 / 2675 1300 / 1300 Balance -787.23 / -787.23 -407.57 / -1407.57 -1300 / -1300 Lab / Micro Data 07/12/23 07:05 07/12/23 07:05 Labs: Laboratory Results - last 24 hr 07/12/23 07:05: WBC 14.1 H, RBC 5.17, Hgb 13.5, Hct 42.3, MCV 81.8, MCH 26.1 L, MCHC 31.9 L, RDW Std Deviation 47.3 H, RDW Coeff of Angel 16.1 H, Plt Count 336, MPV 11.8, Immature Gran % (Auto) 0.500, Neut % (Auto) 77.1 H, Lymph % (Auto) 13.4 L, [place] % (Auto) 6.7, Eos % (Auto) 1.9, Baso % (Auto) 0.4, Absolute Neuts (auto) 10.8 H, Absolute Lymphs (auto) 1.89, Nucleated RBC % 0, Sodium 138, Potassium 3.4 L, Chloride 105, Carbon Dioxide 30.0, Anion Gap 3 L, BUN 14, Creatinine 0.84, Estim Creat Clear Calc 198.89, Est GFR (MDRD) Af Amer 135, Est GFR (MDRD) Non-Af 112, BUN/Creatinine Ratio 16.7, Glucose 98, Calcium 9.0 Physical Exam Const alert and no apparent distress Neck no lymphadenopathy Resp Resp Narrative: crackles bilateral Cardio regular rate, regular rhythm, S1 normal heart sound and S2 normal heart sound Extremity normal to inspection and no clubbing, cyanosis or edema Neuro Sensorium / Orientation: awake and alert Assessment & Plan Assessment/Plan (1) Elevated troponin: PLAN: Plan NSTEMI * Type II (demand ischemic) 2/2 CHF exacerbation. * On heparin gtt, ASA * LHC showed normal coronaries. Acute HFrEF * EF 35-40%, down from 65% from 06/28/21 * Continue carvedilol 25 BID, start sacubitril (dc lisinopril), start SGLTi, * Weight is up roughly 10kg since January. * Change furosemide to 40 IV TID. Hypertensive urgency * improved * continue carvedilol, lisinopri Hypokalemia * 2/2 diuresis * replace * monitor Chronic conditions: * Morbid obesity-BMI 52 kg/m?-Complicates treatment, prognosis, outcomes- Recommend weight loss and lifestyle changes * Suspect STEVE-Will need to follow on outpatient basis-O2 nightly, was 87% when he fell asleep, suspect this is due to untreated sleep apnea and patient gives symptoms concerning for sleep apnea-May need CPAP or BiPAP nightly if O2 not sufficient * Psoriasis-Untreated, will need to follow-up with PCP or dermatology VTE prophylaxis: not indicated as he is anticoagulated. Disposition: TBD. Charges/Coding Visit Charges Inpatient E&M: 56967 Subs Hosp L2
[2023-07-12 09:07] VITALS: BP 123/81; PULSE 92; RESP 18; TEMP 36.6; O2SAT 94
[2023-07-12] MEDS: Potassium Chloride Oral Tablet 20 MEQ 40 MEQ PO ×2 (09:12→16:57)
[2023-07-12] MEDS: Enoxaparin 40 MG/0.4 ML Syringe SC ×2 (09:12→20:28)
[2023-07-12] MEDS: Carvedilol 25 MG Tablet PO ×2 (09:13→20:29)
[2023-07-12] MEDS: Aspirin E.C. 81 MG Tablet PO (09:13)
[2023-07-12] MEDS: SACUBITRIL/VALSARTAN 24/26 MG TABLET 1 EACH PO ×2 (09:13→20:29)
[2023-07-12] MEDS: Empagliflozin 10 MG Tablet PO (09:13)
[2023-07-12] MEDS: Influenza Virus Vac Quad 23-24 60 MCG/0.5 ML SYRINGE IM (10:54)
[2023-07-12 15:00] VITALS: BP 121/81; PULSE 77; RESP 18; TEMP 36.6; O2SAT 95
[2023-07-12] MEDS: 0.9% Saline Lock 10 ML Syringe IV (15:02)
[2023-07-12] MEDS: Atorvastatin Calcium 80 MG Tablet PO (20:29)
[2023-07-12 21:00] VITALS: BP 135/81; PULSE 81; RESP 16; TEMP 36.1; O2SAT 95
[2023-07-13 01:33] VITALS: BMI 49.0
[2023-07-13 04:20] VITALS: BP 131/78; PULSE 80; RESP 18; TEMP 36.6; O2SAT 97
[2023-07-13] MEDS: Furosemide 40 MG/4 ML Vial IV (04:25)
[2023-07-13 06:45] LABS: Anion Gap 4 (5-15); BUN 15 mg/dL (7-18); BUN/Creat Ratio 14.9 RATIO (10-20); Calcium,Total 8.9 mg/dL (8.5-10.1); Chloride 107 mmol/L (98-107); Creatinine, Serum 1.01 mg/dL (0.70-1.30); EST Glomerular Filtration Rate 90 mL/min (>60); Est Glom Filt Rate - Afr Amer 109 mL/min (>60); Estimated Creatinine Clearance 163.43 ml/min; Glucose 101 mg/dL (74-106); Potassium 3.6 mmol/L (3.5-5.1); Sodium Level 140 mmol/L (136-145)
[2023-07-13 07:45] VITALS: O2SAT 91
[2023-07-13 08:23] VITALS: O2SAT 89; O2SAT 94; O2SAT 95
--- NOTE | 2023-07-13 08:23 | PN.HOSP_ITS ---
Subjective Subjective breathing well. no lowe ext edema Objective Data Objective Data Vital Signs: Vital Signs Temp Pulse Resp BP Pulse Ox O2 Del Method O2 Flow Rate 36.6 C 80 18 131/78 H 97 Room Air 3 07/13/23 04:20 07/13/23 04:20 07/13/23 04:20 07/13/23 04:20 07/13/23 04:20 07/13/23 04:20 07/12/23 15:00 Oxygen Flow Rate (L/min) 3 Oxygen Delivery Method Room Air Weight: 163.9 kg Body Mass Index (BMI) 49.0 Intake & Output: Intake and Output for Last 24 Hours 07/11/23 07/12/23 07/13/23 23:59 23:59 23:59 Intake Total 1267.43 / 1267.43 930 / 1170 240 / 240 Output Total 1675 / 2675 1300 / 1800 900 / 900 Balance -407.57 / -1407.57 -370 / -630 -660 / -660 Lab / Micro Data 07/12/23 07:05 07/13/23 05:36 Labs: Laboratory Results - last 24 hr 07/13/23 05:36: Sodium 140, Potassium 3.6, Chloride 107, Carbon Dioxide 29.0, Anion Gap 4 L, BUN 15, Creatinine 1.01, Estim Creat Clear Calc 163.43, Est GFR (MDRD) Af Amer 109, Est GFR (MDRD) Non-Af 90, BUN/Creatinine Ratio 14.9, Glucose 101, Calcium 8.9 Physical Exam Const alert and no apparent distress Neuro Sensorium / Orientation: awake and alert Assessment & Plan Assessment/Plan (1) Elevated troponin: PLAN: Plan NSTEMI * Type II (demand ischemic) 2/2 CHF exacerbation. * On heparin gtt, ASA * LHC showed normal coronaries. Acute HFrEF * EF 35-40%, down from 65% from 06/28/21 * Continue carvedilol 25 BID, start sacubitril (dc lisinopril), start SGLTi, spironolactone, furosemide * Weight is up roughly 10kg since January. * Change furosemide to 40 IV TID. Hypertensive urgency * improved * continue medications. Hypokalemia * 2/2 diuresis * replace * monitor Chronic conditions: * Morbid obesity-BMI 52 kg/m?-Complicates treatment, prognosis, outcomes- Recommend weight loss and lifestyle changes * Suspected STEVE-Will need to follow on outpatient basis-O2 nightly, was 87% when he fell asleep, suspect this is due to untreated sleep apnea and patient gives symptoms concerning for sleep apnea-May need CPAP or BiPAP nightly if O2 not sufficient * Psoriasis-Untreated, will need to follow-up with PCP or dermatology VTE prophylaxis: not indicated as he is anticoagulated. Disposition: TBD.
[2023-07-13 08:45] VITALS: BP 144/87; PULSE 80; RESP 16; TEMP 36.8; O2SAT 96
[2023-07-13] MEDS: Carvedilol 25 MG Tablet PO (08:48)
[2023-07-13] MEDS: Potassium Chloride Oral Tablet 20 MEQ 40 MEQ PO (08:48)
[2023-07-13] MEDS: Empagliflozin 10 MG Tablet PO (08:49)
[2023-07-13] MEDS: Enoxaparin 40 MG/0.4 ML Syringe SC (08:49)
[2023-07-13] MEDS: Aspirin E.C. 81 MG Tablet PO (08:49)
[2023-07-13] MEDS: SACUBITRIL/VALSARTAN 24/26 MG TABLET 1 EACH PO (08:50)
--- NOTE | 2023-07-13 11:16 | DS.PCM_ITS ---
Providers Date of Admission: 07/09/23 Primary Care Physician: No Primary Care Phys Consultations 07/09/23 19:32 Consult: Cardiology Routine Consulting Provider: Fifi Evangelista Reason for Consult: Chest Pain EMERGENT Consult: No MD Notified: Yes Date Notified: 07/09/23 Time Notified: 18:37 Method of Notification: ED Physician Initiated Reason For Visit: SOB, ELEVATED TROPONIN Diagnosis Discharge Diagnosis (1) Elevated troponin: Status: Acute Code(s): R79.89 - Other specified abnormal findings of blood chemistry Plan NSTEMI * Type II (demand ischemic) 2/2 CHF exacerbation. * On heparin gtt, ASA * LHC showed normal coronaries. Acute HFrEF * EF 35-40%, down from 65% from 06/28/21 * Continue carvedilol 25 BID, lisinopril, start SGLTi, spironolactone, furosemide (Entresto not covered by insurance so we will be using lisinopril) * Weight is up roughly 10kg since January. * Change furosemide to 40 IV TID. Hypertensive urgency * improved * continue medications. Hypokalemia * 2/2 diuresis * replace * monitor Chronic conditions: * Morbid obesity-BMI 52 kg/m?-Complicates treatment, prognosis, outcomes- Recommend weight loss and lifestyle changes * Suspected STEVE-Will need to follow on outpatient basis-O2 nightly, was 87% when he fell asleep, suspect this is due to untreated sleep apnea and patient gives symptoms concerning for sleep apnea-May need CPAP or BiPAP nightly if O2 not sufficient * Psoriasis-Untreated, will need to follow-up with PCP or dermatology VTE prophylaxis: not indicated as he is anticoagulated. Disposition: TBD. Medications at Discharge Home Medications aspirin 81 mg tablet,delayed release 81 mg PO BREAKFAST #30 tabs 07/13/23 atorvastatin 40 mg tablet 40 mg PO DAILY #30 tabs 07/13/23 carvedilol 25 mg tablet 25 mg PO BID #60 tabs 07/13/23 dapagliflozin propanediol 10 mg tablet 10 mg PO DAILY #30 tabs 07/13/23 furosemide 40 mg tablet 40 mg PO BIDCM #30 tabs 07/13/23 lisinopril 20 mg tablet 20 mg PO DAILY #30 tabs 07/13/23 Hospital Course Procedures 2-D Echocardiogram and Cardiac catheterization Summary of Care Provided Minutes Spent on Discharge: 35 Hospital Course: Patient presents with hypertensive urgency as well as non-STEMI. Patient with heart cath showed clean coronaries but EF was 35%. Patient nonischemic cardiomyopathy. His EF is down from 2 years ago whereit was 65% at that time. Patient will be discharged with carvedilol, lisinopril, SLG T inhibitor, furosemide and spironolactone. Patient to follow-up with cardiology. Weight / BMI Weight Weight: 163.9 kg Body Mass Index (BMI) 49.0 ABG / Lab / Microbiology Data 07/12/23 07:05 07/13/23 05:36 Laboratory: Laboratory Results - last 24 hr 07/13/23 05:36: Sodium 140, Potassium 3.6, Chloride 107, Carbon Dioxide 29.0, Anion Gap 4 L, BUN 15, Creatinine 1.01, Estim Creat Clear Calc 163.43, Est GFR (MDRD) Af Amer 109, Est GFR (MDRD) Non-Af 90, BUN/Creatinine Ratio 14.9, Glucose 101, Calcium 8.9 D/C Instructions Discharge Diet: Low fat / Low cholesterol, 2000 mg Sodium Diet and - (1.5 liters (50 ounces) of fluid per day. ) Return to work on: 07/22/23 Call your doctor if you observe: Shortness of breath and Swelling in the ankles Meaningful Use Info Meaningful Use Diagnoses (Choose all that apply): CHF CHF ADALGISA/ARB ordered at discharge?: Yes Documented LVEF (%): 35 Discharge Plan Admission Admit Date/Time: 07/09/23 18:31 Primary Reason for Your Visit: heart failure exacerbation. Attending Provider: Herman Coles Primary Care Provider: Care Physician,No Primary Consulting Providers: Fifi Evangelista; Jolanta Fonseca Instructions Patient Instructions: Heart Failure Flare Up Signs, Heart Failure Make Changes Diet, Heart Failure and Physical Activity, Heart Failure Additional Instructions / Restrictions: You presented with heart failure exacerbation. Improved with removal of fluid with Lasix. Your heart is weaker than it was about 2 years ago. It is very important that you take your medications as instructed. There may need to be further adjustments in the future but you will need to follow-up with car diologist. Please check your weight daily and keep a record of that. Notify physician if your weight goes up 2 pounds in 1 day or 3 pounds in 1 week. Please follow-up with cardiology at your scheduled appointment. Please follow- up with your primary care doctor at your earliest convenience. Also arranged to see a cash grain grower for evaluation of your psoriasis through primary care doctor. Follow-up with pulmonary medicine to be evaluated for sleep apnea. Discharge Orders/Prescriptions Prescriptions: New aspirin 81 mg Tablet,Delayed Release (Dr/Ec) 81 mg PO BREAKFAST Qty: 30 0RF atorvastatin 40 mg tablet 40 mg PO DAILY Qty: 30 0RF carvedilol 25 mg Tablet 25 mg PO BID Qty: 60 0RF dapagliflozin propanediol 10 mg tablet 10 mg PO DAILY Qty: 30 0RF furosemide 40 mg tablet 40 mg PO BIDCM Qty: 30 0RF Rx Instructions: take an additional dose if your weight increased 2 pounds in 1 day or 3 pounds in 1 week. lisinopril 20 mg tablet 20 mg PO DAILY Qty: 30 0RF Referrals / Follow Up: [facility] [Provider Group] - Within 1 Month Care Physician,No Primary [Primary Care Provider] - NOT,DEFINED [Non-Staff] - Mellissa King PA [Med Staff - Adv Practice Prof] - 07/31/23 1:00 pm Disposition Disposition (needs filled in before D/C Order can be placed): Home, Self Care Charges/Coding Visit Charges Inpatient E&M: 15185 Disch Hosp >30min
[2023-07-13 11:31] VITALS: BP 127/78; PULSE 76; RESP 16; TEMP 36.9; O2SAT 94
--- NOTE | 2023-07-13 11:56 | NURSING ---
PIVs removed. Discharge paperwork given and reviewed with pt. [facility]
== END 2023-07-13 11:55 | disposition home or self-care (01) | DRG 192 ==
LOC: ED 17:55 → PCU 18:46
PROVIDERS: Nurse Practitioner; Admitting Provider Internal Medicine; Emergency Provider Emergency Medicine
DX: I16.0 Hypertensive urgency (principal); I50.21 Acute systolic (congestive) heart failure; I21.A1 Myocardial infarction type 2; Z68.43 Body mass index [BMI] 50.0-59.9, adult; I42.8 Other cardiomyopathies; I11.0 Hypertensive heart disease with heart failure; E66.01 Morbid (severe) obesity due to excess calories; E87.6 Hypokalemia; F17.290 Nicotine dependence, other tobacco product, uncomplicated; G47.33 Obstructive sleep apnea (adult) (pediatric); L40.0 Psoriasis vulgaris; Z79.82 Long term (current) use of aspirin; Z79.899 Other long term (current) drug therapy; Z86.16 Personal history of COVID-19; Z23 Encounter for immunization
CPT/HCPCS: 36415; 71045; 80048; 80053; 80061; 83036; 83735; 83880; 84443; 84484; 85025; 85027; 85610; 85730; 93005; 93306; 93458; 94640; 94760; 99152; 99153; 99284; 99406; J7040; Q9957; 90686; A4216; C1769; C1894; C8929; J1940; J2405; Q9967

== ENCOUNTER → 2023-09-20 | Outpatient (CLI) | payer MEDICAID, SELFPAY | END | disposition home or self-care (01) | LOC: SL 20:13 | PROVIDERS: PCP Nurse Practitioner Family; Referring Provider Internal Medicine Critical Care Medicine; Visit Provider Internal Medicine Critical Care Medicine | DX: G47.33 Obstructive sleep apnea (adult) (pediatric) (principal) | CPT/HCPCS: 95811 ==

== ENCOUNTER → 2023-09-24 | Outpatient (CLI) | payer MEDICAID, SELFPAY | END | disposition home or self-care (01) | LOC: PSN 09:09 | PROVIDERS: PCP Nurse Practitioner Family; Referring Provider Internal Medicine Critical Care Medicine; Visit Provider Internal Medicine Critical Care Medicine | DX: G47.33 Obstructive sleep apnea (adult) (pediatric) (principal); F17.201 Nicotine dependence, unspecified, in remission | CPT/HCPCS: 94060; 94726; 94729 ==

== ENCOUNTER → 2023-09-26 | Outpatient (CLI) | payer MEDICAID, SELFPAY ==
[2023-09-26 13:23] VITALS: PULSE 103; PULSE 105; PULSE 92; PULSE 93; PULSE 94; PULSE 95; O2SAT 93; O2SAT 94; O2SAT 95; O2SAT 97
--- NOTE | 2023-09-30 11:03 | PCM.PSN.6M ---
PSN 6 Minute Walk Test 6 Minute Walk Test 6 Minute Walk Test: 6 Minute Walk Test PSN:6-Minute Walk Test Start: 09/26/23 13:23 Freq: Status: Active Protocol: [id number] Document 09/26/23 13:23 [facility] (Rec: 09/26/23 13:28 [facility] [id number]) 6 Minute Walk Test Date Performed 09/26/23 Time Performed 13:00 Height 6 ft Weight: 375 lb Weight in Pounds 375.[address]: Long Otero Assistive device used: None Pre-test Oxygen Delivery Method Room Air Pulse Ox 97 Pulse Rate (60-100) 93 Dyspnea Alecia Scale (0-10) 0 1st minute Oxygen Delivery Method Room Air Pulse Ox 94 Pulse Rate (60-100) 92 Dyspnea Alecia Scale (0-10) 1 Number of Rests Taken 0 2nd minute Oxygen Delivery Method Room Air Pulse Ox 93 Pulse Rate (60-100) 94 Dyspnea Alecia Scale (0-10) 1 Number of Rests Taken 0 3rd minute Oxygen Delivery Method Room Air Pulse Ox 94 Pulse Rate (60-100) 95 Dyspnea Alecia Scale (0-10) 2 Number of Rests Taken 0 4th minute Oxygen Delivery Method Room Air Pulse Ox 94 Pulse Rate (60-100) 95 Dyspnea Alecia Scale (0-10) 2 Number of Rests Taken 0 5th minute Oxygen Delivery Method Room Air Pulse Ox 95 Pulse Rate (60-100) 103 H Dyspnea Alecia Scale (0-10) 2 Number of Rests Taken 0 6th minute Oxygen Delivery Method Room Air Pulse Ox 93 Pulse Rate (60-100) 105 H Dyspnea Alecia Scale (0-10) 3 Number of Rests Taken 0 Reported Symptoms Increased Work of Breathing Post-test Oxygen Delivery Method Room Air Pulse Ox 97 Pulse Rate (60-100) 95 Dyspnea Alecia Scale (0-10) 0 Full Laps Walked 17 Partial Lap, Number of Tiles Walked 24 Total Distance Walked (ft) 1027 Interpretation Interpretation: The patient ambulated 1027 feet over the course of 6 minutes beginning on room air without assistive devices. Pretesting oxygen saturation was noted to be 97% on room air. With ambulation, the cristina oxygen saturation was 93%. There was no significant exertional oxygen desaturation. Recommendations Recommendations: There is no indication for the use of supplemental oxygen at this time.
== END | disposition home or self-care (01) ==
LOC: PSN 12:57
PROVIDERS: PCP Nurse Practitioner Family; Referring Provider Internal Medicine Critical Care Medicine; Visit Provider Internal Medicine Critical Care Medicine
DX: G47.33 Obstructive sleep apnea (adult) (pediatric) (principal); F17.201 Nicotine dependence, unspecified, in remission
CPT/HCPCS: 94618

== ENCOUNTER 2023-10-11 21:18 | Emergency (ER) | payer MEDICAID, SELFPAY ==
[2023-10-11 21:19] VITALS: BP 133/93; PULSE 120; RESP 18; TEMP 36.8; O2SAT 97; BMI 50.8
[2023-10-11 21:21] VITALS: BP 133/93; PULSE 119; RESP 18; TEMP 36.8; O2SAT 98
--- NOTE | 2023-10-11 21:36 | CT_ITS ---
STUDY: CT ABDOMEN AND PELVIS WITH CONTRAST REASON FOR EXAM: Male, 33 years old. Right lower quadrant pain RADIATION DOSAGE (If Supplied By Facility): CTDIvol = ( 24.33 ) mGy, DLP = ( 2079.57 ) mGycm TECHNIQUE: Transaxial images were obtained from the dome of the diaphragm to the symphysis pubis without oral contrast. IV 100mL Isovue-370 was administered. Sagittal and coronal images were reconstructed. Individualized dose optimization techniques were used for this CT. COMPARISON: 02/13/2014 FINDINGS: The visualized lung bases are unremarkable. The visualized portions of the heart are within normal limits. There is decreased attenuation of the liver consistent with steatosis. Normal gallbladder and extrahepatic biliary system. Normal spleen. Normal pancreas. Normal bilateral adrenal glands. Normal right kidney. Normal left kidney. Normal visualized stomach. Normal small intestine. Normal colon. There is non-visualization of the appendix. Normal abdominal aorta. Normal inferior vena cava. Normal retroperitoneum. Normal urinary bladder. There is a small umbilical hernia containing fat. Normal osseous structures. CT/Abdomen/Pelvis W IV Cont ONLY IMPRESSION: No acute abnormality. Fatty infiltration of the liver. Electronically Signed: Reg Llamas MD at 22:58 EDT ,
--- NOTE | 2023-10-11 21:37 | ED.VIS.GI ---
HPI HPI - GI History of Present Illness Chief Complaint: Abd Pain Narrative Narrative: 33-year-old male past medical history of hypertension, obesity, obstructive sleep apnea, states he was recently diagnosed with myocardial infarction and CHF, presents with few days worth of right lower quadrant abdominal pain. He states that the area on his right side under his pannus feels numb. He feels like there is intestine that is knotted up in the right lower quadrant. He denies any fevers or chills, no dysuria or hematuria, no problems with bowel movements. No nausea or vomiting. He states that it feels somewhat better when he holds his pannus up off the rest of his body. He denies any other alleviating symptoms. He states that the pain and numbness has been ongoing for at least 3 days. PFSH PFSH Medical History Abnormal cardiac enzyme level Anxiety Cardiomyopathy due to hypertension CHF exacerbation COVID-19 Decreased left ventricular function Encounter for screening for COVID-19 Essential hypertension Gastroenteritis due to food toxin History of left heart catheterization (LHC) (~06/30/21) HTN (hypertension) Loose, teeth Morbid obesity Psoriasis Tobacco use Home Medications aspirin 81 mg tablet,delayed release 81 mg PO BREAKFAST #30 tabs 07/13/23 [Rx Last Taken Unknown] atorvastatin 40 mg tablet 40 mg PO DAILY #90 tabs 07/31/23 [Rx Last Taken Unknown] furosemide 40 mg tablet 40 mg PO DAILY #90 tabs 07/31/23 [Rx Last Taken Unknown] lisinopril 20 mg tablet 20 mg PO DAILY #90 tabs 07/31/23 [Rx Last Taken Unknown] spironolactone 25 mg tablet 25 mg PO DAILY #90 tabs 07/31/23 [Rx Last Taken Unknown] dapagliflozin propanediol 10 mg tablet (Farxiga) 10 mg PO DAILY #30 tabs 08/01/23 [Rx Last Taken Unknown] bupropion HCl 150 mg 24 hr tablet, extended release 150 mg PO QAM 09/04/23 [History Last Taken Unknown] carvedilol 25 mg tablet 25 mg PO DAILY 09/04/23 [History Last Taken Unknown] Allergy/AdvReac Type Severity Reaction Status Date / Time No Known Allergies Allergy Verified 10/11/23 21:21 Family History Mother CVA (cerebral vascular accident) Obstructive sleep apnea Diabetes Other Hypertension Myocardial infarction Social History (Updated 09/04/23 @ 09:34 by Ruthann Shelton LPN) Smoking Status: Former smoker quit date: 08/06/23 alcohol intake: never substance use type: marijuana ROS ROS ED ROS Narrative Constitutional: No fever, no chills. HEENT: No sore throat. No neck pain. No loss of vision. No rhinorrhea. Cardiovascular: No chest pain. No palpitations. No pedal edema. Respiratory: No cough, no shortness of breath. Abdominal: Right lower quadrant abdominal pain. Numbness, burning under pannus on right side. No nausea. No vomiting. No problems with bowel movements, no diarrhea. Genitourinary: No dysuria. No hematuria. Musculoskeletal: No myalgias. No arthralgias. Neurologic: No headaches. No dizziness. No lightheadedness. Skin: No rash. No change in color. Psychiatric: No depression. No anxiety. EXAM Physical Exam Narrative Exam Narrative: Afebrile. Vital signs noted. HEENT: Normocephalic. Atraumatic. PERRL, EOMI. Neck soft and supple. No point tenderness or step off. Cardiovascular: Regular rate and rhythm. No murmurs, rubs, or gallops appreciated. Respiratory: No tachypnea. Lungs clear to auscultation bilaterally. Gastrointestinal: Abdomen soft, obese with normoactive bowel sounds. Mild tenderness right lower quadrant. No rebound or guarding. No erythema on skin of pannus. Neurological: Awake. Alert. Nonfocal, nonlateralizing. Skin: Diffuse psoriatic rash, chronic otherwise normal color. No pallor. Musculoskeletal: No pedal edema. Full range of motion extremities. Const Vital Signs: 10/11/23 21:19 10/11/23 21:21 Temperature 98.2 F 98.2 F Temperature Source Temporal Temporal Pulse Rate 120 H 119 H Respiratory Rate 18 18 Blood Pressure 133/93 H 133/93 H Blood Pressure Mean 106 106 Pulse Ox 97 98 Oxygen Delivery Method Room Air Room Air MDM MDM MDM Narrative Medical decision making narrative: In the differential diagnosis would be ureterolithiasis versus appendicitis versus colitis or bowel obstruction. However the latter 2 diagnoses are less likely based on his history and physical and he has not had any problems with bowel movements, no diarrhea, no nausea or vomiting. He may have a hernia as well. I reviewed his laboratory work and he has normal white count of 9.5, hemoglobin 13.8, hematocrit 42.2, platelet count normal at 311. BMP is grossly unremarkable with a normal sodium of 141, potassium normal at 3.6, chloride 106. Normal BUN of 7 and creatinine normal at 1.15, glucose is appropriately elevated at 152 with a normal anion gap of 5. Urinalysis is negative for infection, negative for occult blood. I do not feel antibiotics are indicated. I reviewed the radiology report for the CT of the abdomen pelvis with IV contrast. While he has an umbilical hernia, I see no reason for his pain in his right flank and pannus. He will be given Toradol 30 mg intravenously here, and discharged to follow-up with his primary care provider. I do not feel he merits observation or admission with his negative workup here today. Although the appendix was not visualized, there were no stranding or other indications of acute appendicitis, he does not have a fever or white count here as well, and his history and physical does not support acute appendicitis. Return instructions to the emergency department were reviewed. Disposition is discharged home in stable condition. History & Record Review Discussion w/independent historian: Patient Lab Data Attestation: I reviewed the patient's lab results. Labs: Laboratory Results - last 24 hr 10/11/23 21:42 WBC 9.5 RBC 4.94 Hgb 13.8 Hct 42.2 MCV 85.4 MCH 27.9 MCHC 32.7 RDW Std Deviation 46.8 H RDW Coeff of Angel 15.1 H Plt Count 311 MPV 11.6 Immature Gran % (Auto) 0.300 Neut % (Auto) 59.9 Lymph % (Auto) 27.9 [place] % (Auto) 8.4 Eos % (Auto) 2.5 Baso % (Auto) 1.0 Absolute Neuts (auto) 5.7 Absolute Lymphs (auto) 2.64 Nucleated RBC % 0 Sodium 141 Potassium 3.6 Chloride 106 Carbon Dioxide 30.0 Anion Gap 5 BUN 7 Creatinine 1.15 Estim Creat Clear Calc 146.71 Est GFR (MDRD) Af Amer 93 Est GFR (MDRD) Non-Af 77 BUN/Creatinine Ratio 6.1 L Glucose 152 H Calcium 8.9 Urine Color Yellow Urine Clarity Sl. Cloudy Urine pH 6.0 Ur Specific [place] 1.015 Urine Protein 15 H Urine Glucose (UA) 1000 H Urine Ketones 5 H Urine Occult Blood Negative Urine Nitrite Negative Urine Bilirubin Negative Urine Urobilinogen Normal Ur Leukocyte Esterase Negative Urine RBC 0 SEEN Urine WBC 0 SEEN Ur Squamous Epith Cells 0-5 SEEN Urine Bacteria 0 SEEN Urine Mucus 0 SEEN Radiography Diagnostic Testing: Clinical Impression(s) from Imaging Studies Abdomen/Pelvis CT 10/11/23 21:36 IMPRESSION: No acute abnormality. Fatty infiltration of the liver. Electronically Signed: Reg Llamas MD at 22:58 EDT , Discharge Plan Triage Chief Complaint: Abd Pain ED Provider: Jeovany Fuentes Dx/Rx/DC Orders Clinical Impression: Right flank pain, Abdominal wall pain Instructions: ED Flank Pain, Uncertain Cause, ED Abdominal Pain Unkn Cause Male... Prescriptions: No Action atorvastatin 40 mg tablet 40 mg PO DAILY Qty: 90 3RF furosemide 40 mg tablet 40 mg PO DAILY Qty: 90 3RF Rx Instructions: take an additional dose if your weight increased 2 pounds in 1 day or 3 pounds in 1 week. lisinopril 20 mg tablet 20 mg PO DAILY Qty: 90 3RF spironolactone 25 mg tablet 25 mg PO DAILY Qty: 90 3RF carvedilol 25 mg tablet 25 mg PO DAILY bupropion HCl 150 mg tablet extended release 24 hr 150 mg PO QAM aspirin 81 mg Tablet,Delayed Release (Dr/Ec) 81 mg PO BREAKFAST Qty: 30 0RF dapagliflozin propanediol [Farxiga] 10 mg tablet 10 mg PO DAILY Qty: 30 11RF Primary Care Provider: Darya Jenkins NP Referrals: Darya Jenkins NP, [employer] MANAGER-C [Primary Care Provider] - 3-5 Days if not improving Disposition Disposition: Home, Self Care
[2023-10-11] MEDS: 0.9% Normal Saline (1000mL) 1,000 ML 1000 ML IV (21:45)
[2023-10-11 21:49] LABS: Bacteria 0 SEEN /hpf (None Seen); Mucous, Urine 0 SEEN /hpf (<or=2+); Red Blood Cells-Urine 0 SEEN /hpf (0-5); White Blood Cells 0 SEEN /hpf (0-5)
[2023-10-11 21:51] LABS: Absolute Lymphocyte Count 2.64 X10^3/uL (0.83-4.51); Absolute Neutrophil Count 5.7 X10^3/uL (2.0-7.7); Basophil# 0.09 X10^3/uL; Color, Urine Yellow (Yellow); Eosinophil# 0.24 X10^3/uL; Eosinophils% 2.5 % (0-5); Glucose, Dipstick 1000 mg/dl (Normal); Hematocrit 42.2 % (40-54); Hemoglobin 13.8 g/dL (13.0-16.5); Ketone-Dipstick 5 mg/dl (Negative); Leukocyte Esterase-Dipstick Negative /ul (Negative); Lymphocyte # 2.64 X10^3/ul (0.83-4.51); Lymphocyte % 27.9 % (19-41); Mean Corp Hgb Conc 32.7 g/dL (32-36); Mean Corpuscular Hgb 27.9 pg (27.0-32.0); Mean Corpuscular Volume 85.4 fL (80-94); Mean Platelet Vol. 11.6 fl (6.2-12.0); Monocyte# 0.79 X10^3/uL; Monocyte% 8.4 % (0-10); NRBC Flagged by Analyzer 0 % (0-5); Neutrophil # 5.66 X10^3/uL (2.7-7.7); Neutrophil % 59.9 % (47-70); Nitrite-Dipstick Negative (Negative); Occult Blood-Urine Negative /ul (Negative); Platelet Count 311 K/mm3 (150-450); Protein-Dipstick 15 mg/dl (Negative); RBC Distribution Width CV 15.1 % (11.6-14.6); RBC Distribution Width SD 46.8 fl (35.1-43.9); Red Blood Count 4.94 M/mm3 (4.6-6.2); Specific Gravity, Urine 1.015 (1.002-1.030); Urine Bilirubin Dipstick Negative (Negative); Urine Clarity Sl. Cloudy (Clear); Urine Urobilinogen Normal (Normal); White Blood Count 9.5 K/mm3 (4.4-11.0)
[2023-10-11 21:57] LABS: Squamous Epithelial Cells - UA 0-5 SEEN /hpf (0-5)
[2023-10-11 22:05] LABS: Anion Gap 5 (5-15); BUN 7 mg/dL (7-18); BUN/Creat Ratio 6.1 RATIO (10-20); Calcium,Total 8.9 mg/dL (8.5-10.1); Chloride 106 mmol/L (98-107); Creatinine, Serum 1.15 mg/dL (0.70-1.30); EST Glomerular Filtration Rate 77 mL/min (>60); Est Glom Filt Rate - Afr Amer 93 mL/min (>60); Estimated Creatinine Clearance 146.71 ml/min; Glucose 152 mg/dL (74-106); Potassium 3.6 mmol/L (3.5-5.1); Sodium Level 141 mmol/L (136-145)
[2023-10-11 23:18] VITALS: PULSE 88; RESP 18
[2023-10-11] MEDS: Ketorolac 30 MG/ML Syringe IV (23:46)
[2023-10-12 00:08] VITALS: BP 134/92; PULSE 90; RESP 18; TEMP 36.6; O2SAT 97
== END 2023-10-12 00:09 | disposition home or self-care (01) ==
PROVIDERS: Emergency Provider Emergency Medicine; PCP Nurse Practitioner Family; Visit Provider Emergency Medicine
DX: R10.31 Right lower quadrant pain (principal); F12.90 Cannabis use, unspecified, uncomplicated; G47.33 Obstructive sleep apnea (adult) (pediatric); I25.2 Old myocardial infarction; Z86.16 Personal history of COVID-19; Z87.891 Personal history of nicotine dependence
CPT/HCPCS: 74177; 80048; 81001; 85025; 96361; 96374; 99282; J7030; Q9967; A4216

== ENCOUNTER 2023-12-23 20:51 | Emergency (ER) | payer MEDICAID, SELFPAY ==
[2023-12-23 20:52] VITALS: BP 172/92; PULSE 120; RESP 22; TEMP 36.4; O2SAT 98
--- NOTE | 2023-12-23 21:18 | EDS_ITS ---
HPI History of Present Illness Chief Complaint: Back Narrative Narrative: 33-year-old male with back pain. He states this is a chronic condition that he had a couple of months. It comes and goes. He denies any direct trauma. No loss of bladder bowel control. No saddle anesthesia. Patient states that the right side of his pelvis is almost always numb. If he stands too long it will be worse. He states that he was supposed to follow-up with his primary care physician and get x-rays of the lumbar spine but never did because he forgot. Patient states that he went camping this weekend and slept on the ground which he believes was not okay. Now is having worsening pain. [facility] Medical History Spine fracture CHF exacerbation Cardiomyopathy due to hypertension Essential hypertension Decreased left ventricular function Tobacco use Gastroenteritis due to food toxin Anxiety History of left heart catheterization (LHC) (~06/30/21) Loose, teeth HTN (hypertension) Abnormal cardiac enzyme level Psoriasis Morbid obesity COVID-19 Encounter for screening for COVID-19 Home Medications ?Medication ?Instructions ?Recorded ?Last Taken ?Type aspirin 81 mg tablet,delayed 81 mg PO BREAKFAST #30 tabs 07/13/23 Unknown Rx release atorvastatin 40 mg tablet 40 mg PO DAILY #90 tabs 07/31/23 Unknown Rx furosemide 40 mg tablet 40 mg PO DAILY #90 tabs 07/31/23 Unknown Rx lisinopril 20 mg tablet 20 mg PO DAILY #90 tabs 07/31/23 Unknown Rx spironolactone 25 mg tablet 25 mg PO DAILY #90 tabs 07/31/23 Unknown Rx dapagliflozin propanediol 10 mg 10 mg PO DAILY #30 tabs 08/01/23 Unknown Rx tablet (Farxiga) bupropion HCl 150 mg 24 hr tablet, 150 mg PO QAM 09/04/23 Unknown History extended release carvedilol 25 mg tablet 25 mg PO DAILY 09/04/23 Unknown History cyclobenzaprine 10 mg tablet 10 mg PO TID PRN Muscle Spasm #20 12/23/23 Unknown Rx TABLETS naproxen 500 mg tablet (Naprosyn) 500 mg PO BID PRN pain #20 tabs 12/23/23 Unknown Rx Allergy/AdvReac Type Severity Reaction Status Date / Time No Known Allergies Allergy Verified 12/23/23 20:53 Family History Mother CVA (cerebral vascular accident) Obstructive sleep apnea Diabetes Other Hypertension Myocardial infarction Social History Smoking Status: Current every day smoker tobacco type: cigarettes and e- cigarettes alcohol intake: never substance use type: marijuana ROS ROS ED Constitutional Constitutional ED: Denies chills, fever(s) or sweats Eyes Eyes: Denies blurry vision or change in vision ENT ENT ED: Denies ear pain or sore throat Cardiovascular Cardiovascular: Denies chest pain, palpitations or racing heartbeat Respiratory/Chest Respiratory/Chest: Denies cough, dyspnea or sputum Gastrointestinal Gastrointestinal: Denies abdominal pain, constipation, diarrhea, nausea or vomiting Genitourinary Genitourinary ED: Denies dysuria, hematuria or urinary frequency Musculoskeletal Musculoskeletal: Reports back pain; Denies arthralgias, myalgias or neck pain Integumentary Denies abscess, Abrasions or rash Neurologic Neurologic: Denies headache(s), paresthesias or weakness Psychiatric Psychiatric: Denies anxiety, depression, suicidal ideation or suicidal thoughts Endocrine Endocrinology: Denies polydipsia or polyuria EXAM Physical Exam Const Vital Signs: 12/23/23 20:52 Temperature 97.6 F L Temperature Source Temporal Pulse Rate 120 H Respiratory Rate 22 H Blood Pressure 172/92 H Blood Pressure Mean 118 Pulse Ox 98 Positive obese General Appearance ED: NAD Nutritional Appearance: obese HEENT Reports moist mucous membranes Eyes PERRL and EOMs intact bilaterally Cardio regular rate Back/Spine Back/Spine Narrative: Diffuse lumbar spinal tenderness and paraspinal musculature tenderness to lumbar spine. No obvious step-offs or deformity. No rashes or bruising. Extremity normal to inspection Neuro oriented x3 Sensorium / Orientation: alert Motor Exam: strength 5/5 throughout Psych mental status grossly normal MDM MDM MDM Narrative Medical decision making narrative: 33-year-old male with back pain.. No evidence of cauda equina syndrome or infectious etiology. This has been chronic for couple of months and has not followed up with his x-rays or treatment. Will obtain an x-ray of the lumbar spine today. Patient is given Norflex and Toradol IM. Reevaluation at 10:34 PM the patient is resting comfortably in bed. He states that the medicine helped significantly. X-rays of the lumbar spine interpreted by myself shows bilateral pars defects at L5. Radiology interpretation agrees. I will give the patient follow-up with spine. Impression: 1. Bilateral pars defects L5 Discharge Plan Triage Chief Complaint: Back ED Provider: Eugenio Jung Dx/Rx/DC Orders Clinical Impression: Lumbar pars defect Instructions: ED Back Spasm, No Trauma Prescriptions: New cyclobenzaprine 10 mg tablet 10 mg PO TID PRN (Reason: Muscle Spasm) Qty: 20 0RF naproxen [Naprosyn] 500 mg tablet 500 mg PO BID PRN (Reason: pain) Qty: 20 0RF No Action atorvastatin 40 mg tablet 40 mg PO DAILY Qty: 90 3RF furosemide 40 mg tablet 40 mg PO DAILY Qty: 90 3RF Rx Instructions: take an additional dose if your weight increased 2 pounds in 1 day or 3 pounds in 1 week. lisinopril 20 mg tablet 20 mg PO DAILY Qty: 90 3RF spironolactone 25 mg tablet 25 mg PO DAILY Qty: 90 3RF carvedilol 25 mg tablet 25 mg PO DAILY bupropion HCl 150 mg tablet extended release 24 hr 150 mg PO QAM aspirin 81 mg Tablet,Delayed Release (Dr/Ec) 81 mg PO BREAKFAST Qty: 30 0RF dapagliflozin propanediol [Farxiga] 10 mg tablet 10 mg PO DAILY Qty: 30 11RF Primary Care Provider: Darya Jenkins NP Referrals: Sin Valles MD [Med Staff - Active Staff] - As soon as possible Darya Jenkins NP, [employer]S CONSULTANT-C [Primary Care Provider] - Print Language: Hungarian Disposition Disposition: Home, Self Care
[2023-12-23] MEDS: Ketorolac 15 MG/ML Vial IM (21:23)
[2023-12-23] MEDS: Orphenadrine 60 MG/2 ML Ampul IM (21:23)
--- NOTE | 2023-12-23 21:40 | RAD_ITS ---
STUDY: X-RAY - LUMBAR SPINE REASON FOR EXAM: Male, 33 years old. back pain TECHNIQUE: 3 view(s) of the lumbar spine were obtained. COMPARISON: CT scan 10/11/2023 FINDINGS: Normal lumbar lordosis. There is no substantial scoliosis. There is a normal alignment of the vertebrae. Bilateral pars defects are seen of L5, otherwise normal vertebral bodies and endplates. Normal disc space heights. There is no demonstrated fracture. The soft tissue structures are unremarkable. RAD/Lumbar Spine 2 or 3 Views IMPRESSION: Bilateral pars defects of L5 without malalignment. Otherwise negative. Electronically Signed: Yong Desir MD at 22:18 EDT ,
[2023-12-23 23:04] VITALS: BP 160/80; PULSE 94; RESP 22; TEMP 36.4; O2SAT 94
== END 2023-12-23 23:51 | disposition home or self-care (01) ==
PROVIDERS: Emergency Provider Student in an Organized Health Care Education/Training Program; PCP Nurse Practitioner Family; Visit Provider Student in an Organized Health Care Education/Training Program
DX: M43.16 Spondylolisthesis, lumbar region (principal); I11.0 Hypertensive heart disease with heart failure; I50.9 Heart failure, unspecified; F17.210 Nicotine dependence, cigarettes, uncomplicated; F17.290 Nicotine dependence, other tobacco product, uncomplicated; Z79.899 Other long term (current) drug therapy; Z86.16 Personal history of COVID-19
CPT/HCPCS: 72100; 96372; 99282

== ENCOUNTER → 2024-09-16 | Outpatient (CLI) | payer MEDICAID, SELFPAY ==
[2024-09-18 17:08] LABS: QNTFERON TB Mitogen Value > 10.00 IU/mL (.); QNTFERON TB Nil Value 0.06 IU/mL (.); QNTFERON TB1+ Ag Value 0.05 IU/mL (.); QNTFERON TB2+ Ag Value 0.04 IU/mL (.); QNTIFERON TB Positive Criteria Negative (Negative)
== END | disposition home or self-care (01) ==
LOC: MTLAB 14:41
PROVIDERS: PCP Nurse Practitioner Family; Referring Provider Physician Assistant; Visit Provider Physician Assistant
DX: L40.0 Psoriasis vulgaris (principal); Z79.899 Other long term (current) drug therapy
CPT/HCPCS: 36415; 86480

== ENCOUNTER 2024-11-06 10:18 | Emergency (ER) | payer MEDICAID, SELFPAY ==
[2024-11-06] VITALS (7 sets, daily range): BP systolic 142–194; BP diastolic 107–124; PULSE 88–100; RESP 17–129; TEMP 36.1–36.2; O2SAT 93–97; BMI 47.9
--- NOTE | 2024-11-06 10:44 | RAD_ITS ---
PROCEDURE: CHEST PA AND LATERAL 11/06/2024 REASON FOR EXAM: CHEST PAIN Shortness of breath. TECHNIQUE: Frontal and lateral views of the chest. COMPARISON: Prior chest radiograph dated July 10, 2023. FINDINGS: Hardware: EKG electrodes are seen. Heart: Cardiomegaly. Mediastinum: The mediastinal contour is unremarkable. Lungs: The lungs are clear. Bones: The bones are unremarkable. RAD/Chest PA and Lateral IMPRESSION: Cardiomegaly. The lungs are clear. Reading Location: [place] [id number]
--- NOTE | 2024-11-06 10:44 | EKG12_ITS ---
Test Reason : CP Blood Pressure : */* mmHG Vent. Rate : 92 BPM Atrial Rate : 92 BPM P-R Int : 186 ms QRS Dur : 100 ms QT Int : 386 ms P-R-T Axes : 50 -14 119 degrees QTcB Int : 477 ms Normal sinus rhythm T wave abnormality, consider lateral ischemia Abnormal ECG Confirmed by Rj Kelsey ([id number]), news videotape editor CATALINO IRIZARRY ([id number]) on 11/09/2024 10:48:40 AM Referred By: CHIKIS/JUANCARLOS Confirmed By: Rj Kelsey
--- NOTE | 2024-11-06 10:45 | ED.VIS.CHEST ---
HPI History of Present Illness Chief Complaint: Chest Pain Informant: patient Narrative Narrative: 34-year-old male presenting with right-sided chest pain that has been bothering him all night, not quite as bad as it was then now, but it is right-sided without radiation, sharp. He states he gets occasional brief sharp pains in the right side once or twice a day chronically, but nothing persistent and severe like it was overnight this past evening. He seen here about 10:30 AM. He states he has a history of heart attack in the past and heart failure, was treated with medications that he was put on last year, however there were a couple times when he took his medications and he "felt like I was going to ," so he stopped taking all of his medications 5 or 6 months ago. This is the first time since then that this has happened. He has felt dyspneic for the past couple days, he has been coughing up light pink frothy fluid, and has a sensation "that my lungs are full of water." Denies any orthopnea or peripheral edema. [facility] Medical History Spine fracture CHF exacerbation Cardiomyopathy due to hypertension Essential hypertension Decreased left ventricular function Tobacco use Gastroenteritis due to food toxin Anxiety History of left heart catheterization (LHC) (~06/30/21) Loose, teeth HTN (hypertension) Abnormal cardiac enzyme level Psoriasis Morbid obesity COVID-19 Encounter for screening for COVID-19 Home Medications Medication Instructions Recorded Last Taken Type atorvastatin 40 mg tablet (Lipitor) 40 mg PO QHS #30 tabs 11/06/24 Unknown Rx carvedilol 25 mg tablet 25 mg PO DAILY #30 tabs 11/06/24 Unknown Rx dapagliflozin propanediol 10 mg 10 mg PO DAILY #30 tabs 11/06/24 Unknown Rx tablet (Farxiga) furosemide 40 mg tablet 40 mg PO DAILY #30 tabs 11/06/24 Unknown Rx lisinopril 20 mg tablet 20 mg PO DAILY #30 tabs 11/06/24 Unknown Rx spironolactone 25 mg tablet 25 mg PO DAILY #30 tabs 11/06/24 Unknown Rx Allergy/AdvReac Type Severity Reaction Status Date / Time No Known Allergies Allergy Verified 11/06/24 10:21 Family History Mother CVA (cerebral vascular accident) Obstructive sleep apnea Diabetes Other Hypertension Myocardial infarction Social History Smoking Status: Heavy Smoker (>10/day) alcohol intake: never substance use type: marijuana ROS ROS ED Constitutional Constitutional ED: Denies chills or fever(s) Eyes Eyes: Denies change in vision or diplopia ENT ENT ED: Denies rhinorrhea or sore throat Cardiovascular Cardiovascular: Reports as per HPI and chest pain; Denies leg edema, orthopnea or palpitations Respiratory/Chest Respiratory/Chest: Reports cough, dyspnea and dyspnea on exertion; Denies orthopnea Gastrointestinal Gastrointestinal: Denies abdominal pain, diarrhea, nausea or vomiting Genitourinary Genitourinary ED: Denies dysuria or hematuria Musculoskeletal Musculoskeletal: Denies back pain or neck pain Integumentary Denies abscess or rash Neurologic Neurologic: Denies headache(s), paresthesias or weakness Psychiatric Psychiatric: Denies anxiety or suicidal thoughts EXAM Physical Exam Const Vital Signs: 11/06/24 10:19 11/06/24 10:21 11/06/24 10:44 Temperature 97 F L 97 F L Temperature Source Temporal Oral Pulse Rate 100 88 Respiratory Rate 21 H 18 Respiratory Effort Blood Pressure 194/124 H 190/116 H Blood Pressure Mean 147 140 Pulse Ox 95 97 96 Oxygen Delivery Method Room Air Room Air Room Air 11/06/24 10:47 11/06/24 11:21 11/06/24 12:21 Temperature 97 F L 97.2 F L Temperature Source Oral Oral Pulse Rate 90 90 Respiratory Rate 17 129 H Respiratory Effort Short of Breath Blood Pressure 142/108 H 143/107 H Blood Pressure Mean 119 119 Pulse Ox 95 94 Oxygen Delivery Method Room Air Room Air Positive well nourished, well developed and obese General Appearance ED: well developed and NAD Nutritional Appearance: obese HEENT Reports moist mucous membranes normocephalic and atraumatic Eyes PERRL and EOMs intact bilaterally Neck full ROM and supple Neck Narrative: Limited eval for JVD due to obesity Resp normal respiratory effort Resp Narrative: Slight expiratory wheezes, otherwise clear. No respiratory distress. Cardio regular rate, regular rhythm and no murmurs GI non-tender and non-distended Auscultation: normoactive bowel sounds Palpation: soft Back/Spine no CVA tenderness General Back: other FROM Extremity normal to inspection General Extremety ED: Negative for edema, pulses abnormal or tenderness General Extremity: Negative for edema or pulses abnormal Neuro oriented x3, CN's II-XII intact bilaterally and no sensory deficits noted Sensorium / Orientation: awake and alert Motor Exam: strength 5/5 throughout Psych mental status grossly normal Skin no wounds Skin Narrative: Patchy nontender discolored but not erythematous rash, nonraised not bullous, on entirety of his back. Psoriasis according to patient, recently started injection for that. MDM MDM MDM Narrative Medical decision making narrative: This patient is very hypertensive however if he is in acute congestive heart failure, I do not want to emergently drop his pressure and cause harm. I reviewed his last echocardiogram from about 16 or 17 months ago, which shows an ejection fraction of 35-40%, moderate concentric LVH. I am concerned with the pink frothy sputum and noncompliance with all of his cardiac medications that he may be in acute failure. Started by giving him a dose of IV Lasix and oral aspirin while we were working him up. However the workup shows normal D-dimer, normal proBNP, normal troponin, but blood counts and renal function are normal. Two-view chest x-ray shows cardiomegaly, no acute edema. Radiology in agreement. Given this, the blood pressure may be the primary issue. We are going to give him more medication for his pressure, but after the Lasix his blood pressure is 143/107 and he feels better with no more chest symptoms. His second troponin came back the same as the initial 1 for a delta of 0. Given this, uncomfortable discharging him home and have him follow-up as an outpatient. He is amenable to restarting his heart medications. I do not have a list of them but I found 1 from last year in his continuity of care document so wrote him for a month of each of those to start with. Advised to follow-up as soon as possible. Lab Data Attestation: I reviewed the patient's lab results. Labs: Laboratory Results - last 24 hr 11/06/24 11/06/24 11:05 12:42 WBC 12.8 H RBC 5.52 Hgb 15.1 Hct 43.8 MCV 79.3 L MCH 27.4 MCHC 34.5 RDW Std Deviation 43.4 RDW Coeff of Angel 15.6 H Plt Count 300 MPV 11.7 Immature Gran % (Auto) 0.200 Neut % (Auto) 70.7 H Lymph % (Auto) 20.7 [place] % (Auto) 6.2 Eos % (Auto) 1.6 Baso % (Auto) 0.6 Absolute Neuts (auto) 9.0 H Absolute Lymphs (auto) 2.64 Nucleated RBC % 0 D-Dimer Quant (PE/DVT) < 0.27 L Sodium 140 Potassium 3.4 Chloride 103 Carbon Dioxide 24.6 Anion Gap 12 BUN 9 Creatinine 0.79 Estim Creat Clear Calc 204.31 Est GFR (MDRD) Non-Af 119 BUN/Creatinine Ratio 11.8 Glucose 143 H Calcium 9.1 Troponin T High Sens 21 Troponin T Hi Sens 2 Hr 21 NT pro BNP II 335 Radiography Diagnostic Testing: Clinical Impression(s) from Imaging Studies Chest X-Ray 11/06/24 10:44 IMPRESSION: Cardiomegaly. The lungs are clear. Reading Location: [place] [id number] Rhythm Strip Rhythm Strip: Sinus Rhythm Rate: 92 Ectopy: None EKG Initial EKG: Attestation: I personally reviewed and interpreted this EKG as follows: Interpretation: Sinus Rhythm and No Acute Injury Pattern Comments: Poor R wave transition. No AVB. T wave inversions laterally. Prior EKG tracings: available for review Prior: Unchanged Discharge Plan Triage Chief Complaint: Chest Pain ED Provider: Alan Gomez Dx/Rx/DC Orders Clinical Impression: Chest pain, Hypertensive urgency, Noncompliance with medications Instructions: ED Chest Pain, Uncertain Cause, ED High Blood Pressure Hypertension Prescriptions: New atorvastatin [Lipitor] 40 mg tablet 40 mg PO QHS Qty: 30 0RF carvedilol 25 mg tablet 25 mg PO DAILY Qty: 30 0RF Rx Instructions: must administer with a meal/food lisinopril 20 mg tablet 20 mg PO DAILY Qty: 30 0RF furosemide 40 mg tablet 40 mg PO DAILY Qty: 30 0RF spironolactone 25 mg tablet 25 mg PO DAILY Qty: 30 0RF dapagliflozin propanediol [Farxiga] 10 mg tablet 10 mg PO DAILY Qty: 30 0RF Primary Care Provider: Darya Jenkins NP Referrals: Trill,Darya BUSH HOG OPERATOR, [employer] OPERATOR-C [Primary Care Provider] - As soon as possible Print Language: Scottish Disposition Disposition: Home, Self Care
[2024-11-06] MEDS: Furosemide 40 MG/4 ML Vial IV (11:04)
[2024-11-06] MEDS: Aspirin 81 MG TAB.CHEW 324 MG PO (11:04)
[2024-11-06 11:13] LABS: Absolute Lymphocyte Count 2.64 X10^3/uL (0.83-4.51); Basophil# 0.08 X10^3/uL; Basophil% 0.6 % (0-1); Eosinophils% 1.6 % (0-5); Hematocrit 43.8 % (40-54); Hemoglobin 15.1 g/dL (13.0-16.5); Lymphocyte # 2.64 X10^3/ul (0.83-4.51); Lymphocyte % 20.7 % (19-41); Mean Corp Hgb Conc 34.5 g/dL (32-36); Mean Corpuscular Hgb 27.4 pg (27.0-32.0); Mean Corpuscular Volume 79.3 fL (80-94); Mean Platelet Vol. 11.7 fl (6.2-12.0); Monocyte# 0.79 X10^3/uL; Monocyte% 6.2 % (0-10); NRBC Flagged by Analyzer 0 % (0-5); Neutrophil # 9.03 X10^3/uL (2.7-7.7); Neutrophil % 70.7 % (47-70); Platelet Count 300 K/mm3 (150-450); RBC Distribution Width CV 15.6 % (11.6-14.6); RBC Distribution Width SD 43.4 fl (35.1-43.9); Red Blood Count 5.52 M/mm3 (4.6-6.2); White Blood Count 12.8 K/mm3 (4.4-11.0)
[2024-11-06 11:36] LABS: Anion Gap 12 (5-15); BUN 9 mg/dL (4-19); BUN/Creat Ratio 11.8 RATIO (10-20); Calcium,Total 9.1 mg/dL (7.6-11.0); Carbon Dioxide 24.6 mmol/L (21.0-32.0); Chloride 103 mmol/L (98-108); Creatinine, Serum 0.79 mg/dL (0.70-1.20); EST Glomerular Filtration Rate 119 (>60); Estimated Creatinine Clearance 204.31 ml/min (50-250); Glucose 143 mg/dL (70-99); Potassium 3.4 mmol/L (3.3-5.1); Pro- Brain NATRIURETIC PEPTIDE 335 pg/mL (<=450); Sodium Level 140 mmol/L (133-145); Troponin T High Sensitivity 21 ng/L (<=22)
[2024-11-06 11:52] LABS: D-Dimer Quantitative (DVT/PE) < 0.27 FEU/ug/m (0.27-0.49)
[2024-11-06 13:12] LABS: Troponin T High Sens 2 HR 21 ng/L (<=22)
== END 2024-11-06 13:42 | disposition home or self-care (01) ==
PROVIDERS: Emergency Provider Emergency Medicine; PCP Nurse Practitioner Family; Visit Provider Emergency Medicine
DX: R07.9 Chest pain, unspecified (principal); I11.0 Hypertensive heart disease with heart failure; I50.9 Heart failure, unspecified; I16.0 Hypertensive urgency; F17.200 Nicotine dependence, unspecified, uncomplicated; F12.90 Cannabis use, unspecified, uncomplicated; Z86.16 Personal history of COVID-19; Z91.148 Patient's other noncompliance with medication regimen for other reason
CPT/HCPCS: 71046; 80048; 83880; 84484; 85025; 85379; 93005; 96374; 99284; A4216; J1938